=== PATIENT | female | born 1950 | race Caucasian/White ===

== ENCOUNTER 2019-06-02 14:24 | Outpatient (CLI) | payer MEDICARE, OTHER, SELFPAY ==
--- NOTE | 2019-06-02 14:35 | XR_ITS ---
WS: [id number] LEFT SHOULDER: 3 VIEW(S) TECHNIQUE: Internal and external rotation with Y view. HISTORY: Fracture. COMPARISON: None available. Acute fracture involving the humeral head. There is slight impaction along the fracture line through the humeral head but no displacement otherwise. Moderate narrowing of the LEFT AC joint with small osteophytes. LEFT subclavian pacer and defibrillator. Atherosclerosis noted within the thoracic aorta. XR/XR shoulder LT min 2V* [id number] IMPRESSION: Slightly impacted but nondisplaced LEFT humeral head fracture. No prior studies to comment on nonhealing or callus formation or change in alignment.
== END 2019-06-02 14:25 | disposition home or self-care (01) ==
LOC: RADWPI 14:34
PROVIDERS: PCP Nurse Practitioner Family; Referring Provider Nurse Practitioner Family; Visit Provider Nurse Practitioner Family
DX: S42.292A Other displaced fracture of upper end of left humerus, initial encounter for closed fracture (principal); X58.XXXA Exposure to other specified factors, initial encounter
CPT/HCPCS: 73030

== ENCOUNTER 2019-06-18 07:58 | Day surgery (SDC) | payer MEDICARE, OTHER, SELFPAY ==
[2019-06-17 12:23] VITALS: BMI 36.3
--- NOTE | 2019-06-18 08:14 | ANES.PREANES ---
Pre-Anesthetic Assessment Pre-Anesthetic Assessment: Height/Weight: Height 1.6 m Weight 92.986 kg Proposed Procedure: Operation Date: 06/18/19 09:30 Proposed Procedures p Colonoscopy(Not Applicable) - Mathew Garland MD Social: Social History: Tobacco (quit 97) Exam: Pre-Anes Outpt Exam: alert, oriented x 3, clear to auscultation bilaterally and regular rate & rhythm Airway: Submandibular: WNL Cervical ROM: WNL MP: 2 Dentition: Other (teeth poor) History/ROS: No significant history except as noted Pulmonary: Pulmonary: RAMIREZ, Orthopnea and Sleep apnea CV/HEM: CV/HEM: CAD, CHF, HTN and UT : : Chronic renal Insufficiency Hepatic: Hepatic: None reported GI: GI: GERD (occ) Metabolic: Metabolic: DM and Hyperlipidemia Musc/skel: Musc/skel: Lower Back Pain Neuropsych: Neuropsych: Anxiety and Depression Anesthetic Plan: ASA status: III Anesthesia: Anesthesia Evaluation and MAC Risk of > 500 ml blood loss (7ml/kg in children): No PFSH Anesthesia PFSH: Medical History Depression (Acute) Diabetes mellitus (Acute) Heart disease (Acute) Hx of cardiac pacemaker (Acute) Hypertension (Acute) Migraine (Acute) Myocardial infarction (Acute) Sleep apnea (Acute) Thyroid disease (Acute) Surgical History Hx of cholecystectomy (Acute) Hx of hysterectomy (Acute) Family History Other Diabetes Heart disease Data Anesthesia Cardiac Studies: No Data to Display
--- NOTE | 2019-06-18 09:01 | PM.HPUD ---
H&P update H&P Update: DATE OF SURGERY/PROCEDURE: 06/18/19 DATE H&P PERFORMED: 06/09/19 H&P UPDATE INFORMATION: H&P completed within last 30 days and Changes to prior documentation as noted here CHANGES TO PREVIOUS DOCUMENTATION: Patient said she forgot to tell me that she has a fracture of her left humerus; she sees somebody for follow-up next week. She tries not to lay on that side so I told her that we will maybe try to do the colonoscopy in a supine position today. PLANNED PROCEDURE: Operation Date: 06/18/19 09:30 Proposed Procedures p Colonoscopy(Not Applicable) - Mathew Garland MD Full H&P Perinent History: Medical/Surgical History: Medical History (Updated 06/18/19 @ 08:15 by Rei Guerin MD) Depression (Acute) Diabetes mellitus (Acute) Heart disease (Acute) Hx of cardiac pacemaker (Acute) Hypertension (Acute) Migraine (Acute) Myocardial infarction (Acute) Sleep apnea (Acute) Thyroid disease (Acute) Family History: Family History (Updated 06/17/19 @ 11:54 by Ethan Chase LPN) Other Diabetes Heart disease
[2019-06-18 09:33] VITALS: BP 152/82; PULSE 71; RESP 20; TEMP 36.3; O2SAT 99
[2019-06-18] MEDS: sodium chloride 0.9% 1,000 ML 30 ML (09:36)
[2019-06-18 09:43] LABS: Glucose Point of Care 74 mg/dL (70-110)
[2019-06-18 10:07] VITALS: BP 123/76; PULSE 70; RESP 16; TEMP 36.3; O2SAT 99
--- NOTE | 2019-06-18 10:09 | ANE.PACU ---
 Inpatient post-anesthesia follow up: Airway intact: Yes Vital signs: Temperature 97.4 F Pulse Rate 71 Respiratory Rate 20 Blood Pressure 152/82 Pulse Oximetry 99 Oxygen Delivery Me thod Room Air Oxygen Flow Rate Fraction of Inspir ed Oxygen Hydration adequate: Yes Nausea and vomiting: No Pain level: Other Mental status: Baseline
[2019-06-18 10:20] VITALS: BP 148/66; PULSE 70; RESP 18; O2SAT 97
== END 2019-06-18 10:42 | disposition home or self-care (01) ==
PROVIDERS: PCP Nurse Practitioner Family; Visit Provider Surgery
PROC: 0DJD8ZZ Inspection of Lower Intestinal Tract, Via Natural or Artificial Opening Endoscopic (ICD-10-PCS; CPT 45378; principal; 2019-06-18 09:30)
DX: R19.5 Other fecal abnormalities (principal); D12.5 Benign neoplasm of sigmoid colon; K57.30 Diverticulosis of large intestine without perforation or abscess without bleeding; E11.9 Type 2 diabetes mellitus without complications; I11.0 Hypertensive heart disease with heart failure; I50.9 Heart failure, unspecified; G47.30 Sleep apnea, unspecified; Z82.49 Family history of ischemic heart disease and other diseases of the circulatory system; Z83.3 Family history of diabetes mellitus; I25.2 Old myocardial infarction; Z95.0 Presence of cardiac pacemaker; Z87.891 Personal history of nicotine dependence; I25.10 Atherosclerotic heart disease of native coronary artery without angina pectoris; E78.5 Hyperlipidemia, unspecified; M19.90 Unspecified osteoarthritis, unspecified site; Z79.891 Long term (current) use of opiate analgesic; Z79.82 Long term (current) use of aspirin; Z79.4 Long term (current) use of insulin
CPT/HCPCS: 12345; 36416; 45385; 82962; 88305; J2704; J7030

== ENCOUNTER → 2019-06-25 10:22 | Outpatient (BNVA) | payer MEDICARE, OTHER, SELFPAY | PROVIDERS: PCP Nurse Practitioner Family; Referring Provider Nurse Practitioner Family; Visit Provider Specialist | DX: M25.512 Pain in left shoulder (principal); S42.292A Other displaced fracture of upper end of left humerus, initial encounter for closed fracture; X58.XXXA Exposure to other specified factors, initial encounter | CPT/HCPCS: 73030 ==

== ENCOUNTER 2019-06-30 15:19 | Outpatient (RCR) | payer MEDICARE, OTHER, SELFPAY | END 2019-07-18 23:59 | disposition home or self-care (01) | LOC: SPT 15:19 | PROVIDERS: PCP Nurse Practitioner Family; Referring Provider Specialist; Visit Provider Specialist | DX: S42.202D Unspecified fracture of upper end of left humerus, subsequent encounter for fracture with routine healing (principal); X58.XXXD Exposure to other specified factors, subsequent encounter | CPT/HCPCS: 97110; 97161 ==

== ENCOUNTER 2019-07-19 06:00 | Outpatient (RCR) | payer MEDICARE, OTHER, SELFPAY | END 2019-08-18 23:59 | disposition home or self-care (01) | LOC: SPT 06:00 | PROVIDERS: PCP Nurse Practitioner Family; Referring Provider Specialist; Visit Provider Specialist | DX: S42.202D Unspecified fracture of upper end of left humerus, subsequent encounter for fracture with routine healing (principal); X58.XXXD Exposure to other specified factors, subsequent encounter | CPT/HCPCS: 97110 ==

== ENCOUNTER → 2019-07-23 11:20 | Outpatient (BNVA) | payer MEDICARE, OTHER, SELFPAY | PROVIDERS: PCP Nurse Practitioner Family; Visit Provider Specialist | DX: S42.292A Other displaced fracture of upper end of left humerus, initial encounter for closed fracture; X58.XXXA Exposure to other specified factors, initial encounter | CPT/HCPCS: 73030 ==

== ENCOUNTER 2019-09-28 10:34 | Outpatient (CLI) | payer MEDICARE, OTHER, SELFPAY ==
--- NOTE | 2019-09-28 10:49 | XR_ITS ---
WS: [id number] LUMBAR SPINE FLEXION AND EXTENSION TECHNIQUE: 3 views of the lumbar spine: Lateral neutral, flexion, and extension views. CLINICAL INFORMATION: LOW BACK PAIN COMPARISON: None. FINDINGS: Slight grade 1 anterolisthesis L4 on L5 measuring 1.8 mm in neutral. This increases slightly on flexi on to 2.8 mm. This decreases to near neutral on extension. Disc space narrowing worse L5-S1. Moderate facet arthropathy L5-S1 with bony foraminal narrowing. Mild chronic anterior wedging in the lower th oracic spine. XR/XR lumbar spine f/e only [id number] IMPRESSION: Mild flexion instability L4-5 described above.
== END 2019-09-28 10:35 | disposition home or self-care (01) ==
PROVIDERS: PCP Nurse Practitioner Family; Visit Provider Nurse Practitioner
DX: M54.5 Low back pain (principal); M53.2X6 Spinal instabilities, lumbar region
CPT/HCPCS: 72120

== ENCOUNTER → 2020-03-29 11:22 | Outpatient (BNVA) | payer MEDICARE, OTHER, SELFPAY | PROVIDERS: PCP Nurse Practitioner Family; Visit Provider Nurse Practitioner Family | DX: E11.9 Type 2 diabetes mellitus without complications (principal); E03.9 Hypothyroidism, unspecified; I10 Essential (primary) hypertension; Z79.01 Long term (current) use of anticoagulants | CPT/HCPCS: 80053; 83036; 84443; 85025 ==

== ENCOUNTER 2020-03-30 09:30 | Outpatient (CLI) | payer MEDICARE, OTHER, SELFPAY ==
--- NOTE | 2020-03-30 09:47 | USCV_ITS ---
Wendy Dockery Age: 69 Gender: F : 1950 Exam Date: 03/30/2020 09:58 Ordering Phys: Acacia Welch LENS MATCHER Technologist: Chrissie Santos [place] [facility] [place]: AAA Screening HISTORY: Diameter (cm) AP x Transverse x Length Velocity (cm/s) Waveform Prox Aorta: 1.88 x 2.12 x 74.60 Triphasic Mid Aorta: 1.69 x 1.69 x 86.10 Triphasic Distal Aorta: 1.66 x 1.78 x 76.90 Triphasic Right Iliac Prox: 1.18 x 1.21 x 88.40 Triphasic Left Iliac Prox: 1.29 x 1.31 x 112.40 Triphasic Stent Prox Landing x x Aneurysmal Sac Max x x Lt Lat Sac Dim Rt Lat Sac Dim Stent Dist Landing x x Right Iliac Stent x x Left Iliac Stent x x Right Renal Art Left Renal Art FINDINGS: Mild diffuse plaques in the abdominal aorta Normal aortic and iliac Doppler flow velocities CONCLUSIONS 1. Normal dimensions of the abdominal aorta and proximal common iliac arteries with no evidence of aneurysm 2. Normal Doppler flow velocities with no evidence of hemodynamically significant stenosis 3. Mild diffuse plaques in the abdominal aorta Dr Ace Santizo MD [facility] (Electronically Signed) Final Date: 31 March 2020 19:17 S
--- NOTE | 2020-03-30 09:47 | USCV_ITS ---
Wenyd Dockery Age: 69 Gender: F : 1950 Exam Date: 03/30/2020 10:21 Ordering Phys: Acacia Welch SR. PAYROLL PROCESSOR Technologist: Adriana Elizabeth Exam Location: [facility] – [place] Indication: chf BP: 114 / 65 HR: 125 Rhythm: Sinus Technical Quality: Adequate MEASUREMENTS (Male / Female) Normal Values 2D ECHO LV Diastolic Diameter PLAX 4.1 cm 4.2 - 5.9 / 3.9 - 5.3 cm LV Systolic Diameter PLAX 3.7 cm LV Chamber Size 3.6 cm IVS Diastolic Thickness 1.6 cm 0.6 - 1.0 / 0.6 - 0.9 cm IVS Systolic Thickness 1.5 cm LVPW Diastolic Thickness 2.1 cm 0.6 - 1.0 / 0.6 - 0.9 cm LVPW Systolic Thickness 2.5 cm RV Chamber Size 2.9 cm LVOT Diameter 2.0 cm LV Ejection Fraction 2D Teich 22.6 % LV Ejection Fraction MOD 2C 66.2 % LV Ejection Fraction 2C AL 68.3 % LA Diameter 4.0 cm LA Width 2.9 cm LA Height 5.2 cm RA Width 2.4 cm RA Height 3.9 cm Aorta at Sinotubular Diameter 3.6 cm M-MODE LV Diastolic Diameter MM 5.3 cm 4.2 - 5.9 / 3.9 - 5.3 cm LV Systolic Diameter MM 3.7 cm LV Ejection Fraction MM Teich 57.1 % IVS Diastolic Thickness MM 1.2 cm 0.6 - 1.0 / 0.6 - 0.9 cm IVS Systolic Thickness MM 1.8 cm LVPW Diastolic Thickness MM 1.2 cm 0.6 - 1.0 / 0.6 - 0.9 cm LVPW Systolic Thickness MM 1.2 cm Aortic Annulus Diameter 3.6 cm LA Ao Ratio MM 1.3 MV E Point Septal Separation 1.1 cm DOPPLER AV Peak Velocity 104.0 cm/s LVOT Peak Velocity 104.0 cm/s AV Area Cont Eq vti 3.9 cm squared AV Area Cont Eq pk 3.3 cm squared MV Area PHT 6.3 cm squared Mitral E to A Ratio 3.4 MV E' Velocity 52.5 cm/s Mitral E to MV E' Ratio 8.0 Mitral E to LV E' Lateral Ratio 10.3 Mitral E to LV E' Septal Ratio 6.5 TR Peak Velocity 235.7 cm/s TR Peak Gradient 22.2 mmHg TV Peak E Velocity 45.0 cm/s Right Atrial Pressure 3.0 mmHg Pulmonary Artery Systolic Pressu 25.2 mmHg PV Peak Velocity 76.0 cm/s RV Acceleration Time 0.1 s RV Ejection Time 0.3 s RV AcT/ET 0.2 FINDINGS Left Ventricle Normal left ventricular cavity size. Mildly decreased left ventricular systolic function. Global left ventricular hypokinesis with septal bounce which could be secondary to pacemaker activity, interventricular conduction delay or postoperative state. Left ventricular ejection fraction is estimated at 50 %. Grade III/IV diastolic dysfunction (restrictive filling pattern), severely elevated filling pressures. Right Ventricle The right ventricle is normal in size and function. Catheter/pacemaker wire visualized in the right ventricle. Right Atrium The right atrium is normal in size. Left Atrium The left atrium is normal in size. Mitral Valve Structurally normal mitral valve without significant stenosis or prolapse. There is no mitral regurgitation. Aortic Valve Moderate aortic valve calcification. No aortic valve stenosis. Mild aortic valve regurgitation. Tricuspid Valve Structurally normal tricuspid valve without significant stenosis or regurgitation. Pulmonary artery systolic pressure is normal. Pulmonic Valve Structurally normal pulmonic valve without significant stenosis. There is no pulmonic regurgitation. Pericardium Normal pericardium without effusion. Aorta Normal ascending aorta dimension. CONCLUSIONS 1-Normal left ventricular cavity size. Mildly decreased left ventricular systolic function. Global left ventricular hypokinesis with septal bounce which could be secondary to pacemaker activity, interventricular conduction delay or postoperative state. Left ventricular ejection fraction is estimated at 50 %. Grade III/IV diastolic dysfunction (restrictive filling pattern), severely elevated filling pressures. 2-Moderate aortic valve calcification. No aortic valve stenosis. Mild aortic valve regurgitation. 3-The right ventricle is normal in size and function. Catheter/pacemaker wire visualized in the right ventricle. 4-There is no pericardial effusion. 5-Right atrial pressure is around 5 mm of mercury. 6-There are no prior echocardiogram studies to compare. Mirta Barraza MD (Electronically Signed) Final Date: 30 March 2020 19:42 S
--- NOTE | 2020-03-30 11:57 | MM_ITS ---
WS: [id number] BILATERAL DIGITAL SCREENING MAMMOGRAPHY WITH CAD CLINICAL INFORMATION: SCREENING HISTORY: Screening mammogram. No current complaints. COMPARISON: 019 and TECHNIQUE: Bilateral CC and MLO views. FINDINGS: The breasts are composed of heterogeneous fibroglandular density tissue, which can limit the detectio n of small underlying mass lesions. Dystrophic calcifications right breast. Punctate and lucent cente red calcifications are similar in appearance. Stable intramammary lymph nodes. Dense breast tissue up per outer left breast is unchanged dating back to 2016. No suspicious mass, asymmetry, calcifications, or architectural distortion. No evidence of malignancy . MM/[place] [id number] IMPRESSION: BI-RADS: 2-Benign FOLLOW UP: 1 Year Follow-up Recommend return to annual screening mammography.
== END 2020-03-30 09:31 | disposition home or self-care (01) ==
PROVIDERS: PCP Nurse Practitioner Family; Visit Provider Nurse Practitioner Family
DX: Z12.31 Encounter for screening mammogram for malignant neoplasm of breast (principal); I50.9 Heart failure, unspecified; I35.1 Nonrheumatic aortic (valve) insufficiency; Z95.0 Presence of cardiac pacemaker; I71.4 Abdominal aortic aneurysm, without rupture
CPT/HCPCS: 76706; 77067; 93306

== ENCOUNTER 2020-12-26 13:29 | Outpatient (CLI) | payer MEDICARE, SELFPAY ==
[2020-12-26 14:53] LABS: Calcium 8.8 mg/dL (8.5-10.5)
[2020-12-26 15:00] LABS: Parathyroid Hormone 89.5 pg/mL (15-65)
[2020-12-26 15:03] LABS: Creatinine Urine, Random 488 mg/dL (28-217); Microalbum Creatinine Ratio Ur 4 mg/dL (0-20); Microalbumin Random Urine 2 ug/dL (0-20)
[2020-12-26 15:07] LABS: 25 Hydroxy Vitamin D 29 ng/mL (30-100); Anion Gap 16.4 (5-19); Blood Urea Nitrogen 18 mg/dL (8-23); Calcium 8.9 mg/dL (8.5-10.5); Carbon Dioxide 24 mmol/L (22-29); Chloride 101 mmol/L (98-107); Glucose 247 mg/dL (65-115); Phosphorus 2.9 mg/dL (2.5-4.5); Potassium 4.4 mmol/L (3.5-5.1); Sodium 137 mmol/L (136-145)
== END 2020-12-26 13:30 | disposition home or self-care (01) ==
LOC: LAB 13:36
PROVIDERS: PCP Nurse Practitioner Family; Visit Provider Internal Medicine Nephrology
DX: N18.32 Chronic kidney disease, stage 3b (principal)
CPT/HCPCS: 80069; 82044; 82306; 82310; 83970

== ENCOUNTER 2021-06-06 12:26 | Outpatient (CLI) | payer MEDICARE, SELFPAY ==
--- NOTE | 2021-06-06 12:37 | XR_ITS ---
WS: [id number] Exam: XR chest 3V [id number] Date/Time of Exam: 06/06/2021 12:42 PM Reason For Exam: PNEUMONIA There is infiltrate and probable atelectasis in the left lower lobe. The right lung is clear. No pneu mothorax is seen. There may be a small left pleural effusion present. Mild cardiac enlargement. A per manent cardiac pacer is noted over the left chest. Bony structures are intact. XR/XR chest 3V [id number] IMPRESSION: 1. Left lower lobe infiltrate and probable atelectasis. Small left pleural effu temitope. 2. Mild cardiac enlargement.
== END 2021-06-06 12:27 | disposition home or self-care (01) ==
LOC: RAD 12:30
PROVIDERS: PCP Nurse Practitioner Family; Visit Provider Nurse Practitioner Family
DX: J18.9 Pneumonia, unspecified organism (principal); I51.7 Cardiomegaly; R91.8 Other nonspecific abnormal finding of lung field
CPT/HCPCS: 71047

== ENCOUNTER 2021-06-13 19:27 | Emergency (ER) | payer MEDICARE, SELFPAY ==
[2021-06-13 19:37] VITALS: BP 171/78; PULSE 73; RESP 18; TEMP 36.5; O2SAT 92; BMI 36.6
--- NOTE | 2021-06-13 19:45 | ED_ITS ---
Documented by User: Rei Lugo MD 06/17/21 20:31 HPI - SOB/Dyspnea General: Chief Complaint: Shortness of Breath/Dyspnea Stated Complaint: SOB\Headache\Confused Time Seen by Provider: 06/13/21 19:45 History of Present Illness: HPI Narrative: Ms. Dockery is a 71-year-old lady with significant past medical history of hypertension, hyperlipidemia, thyroid disorder, diabetes who presents emergency department due to shortness of breath cough. Symptoms have been going on for almost a month now initially after a head cold and then has had persistent cough. She endorses over the past week worsening symptoms including new oxygen requirement. She does not have a history of extensive smoking and no known lung disease. Today she has had nausea vomiting and generally feels worse in addition to headache. She has not been vaccinated against Covid though denies sick exposures. Over the course of symptoms has been worsening. Intensity today is moderate to severe. No other specific changes to health, exacerbating, relieving factors identified. Pertinent past history: diabetes Onset (ago): week(s) Context: other Timing: progressively worsening Severity: moderate Exacerbating factors: movement and coughing Relieving factors: nothing Known history of: other Associated symptoms: Reports nausea, vomiting and other Treatment prior to arrival: oxygen Review of Systems General: Reports: 10 or more systems reviewed and unremarkable except in HPI and below GI: Reports: nausea and vomiting [facility] ED PFSH: Medical History Depression Diabetes mellitus Heart disease Hx of cardiac pacemaker Hypertension Hypothyroidism Migraine Myocardial infarction On anticoagulant therapy Renal insufficiency Sleep apnea Thyroid disease Surgical History Hx of cholecystectomy Hx of hysterectomy Family History Other Diabetes Heart disease Social History Smoking and tobacco status: never smoked Physical Exam Const: COMMON NORMALS: alert GENERAL APPEARANCE: cooperative, well developed and ill appearing (mildly) HENMT: COMMON NORMALS: normocephalic and atraumatic HEAD & SCALP: normocephalic and atraumatic Eye: COMMON NORMALS: conjunctivae normal CONJUNCTIVA: Yes conjunctivae normal SCLERA: sclerae normal Neck/C-Spine: COMMON NORMALS: supple GENERAL: Yes trachea midline Resp: COMMON NORMALS: normal respiratory effort EFFORT & INSPECTION: Yes able to speak in complete sentences AUSCULTATION: rhonchi lower bilaterally and diminished lung sounds Cardio: COMMON NORMALS: regular rate and regular rhythm RATE: regular rate RHYTHM: regular rhythm OTHER: Normal peripheral perfusion, no edema GI: COMMON NORMALS: Soft to palpation PALPATION: Yes Soft to palpation and No Tenderness to palpation present (GI) PERCUSSION: normal to percussion Extremity: GENERAL: Yes normal exam except as noted and No edema Neuro: COMMON NORMALS: moves all extremities SENSORIUM/ORIENTATION: Yes alert and No Orientation impaired Psych: COMMON NORMALS: mental status grossly normal and Normal thought process present THOUGHT PROCESS: Normal thought process present Course ED course: - Patient was seen and evaluated by me at bedside - Patient placed on cardiac monitors, IV access obtained - Initial evaluation notable for exam as above -Fluids given - Labs notable for no significant hematologic abnormality with exception of mild thrombocytopenia of unclear etiology. ABG without evidence of CO2 retention. Metabolic panel with significant hypokalemia of somewhat unclear etiology, mildly elevated anion gap. Delta troponin is negative. BNP mildly elevated. Covid positive. - Imaging notable for questionable left basilar infiltrate or atelectasis. - Upon serial reexamination after treatment the patient was mildly improved - Given fairly profound hypokalemia both oral and IV replenishment were ordered. Upon clarification patient history she reports only intermittent compliance with potassium supplementation despite taking her Lasix as directed. This is likely a significantly contributing factor to hyperkalemia. - Patient care handed off to overnight ED physician Dr. Christina pending repeat BMP for improvement in hyperkalemia with ED provider treatment. Note: Click bubbles or prepopulated james in note writing are used for assistance with data collection and billing and are inherently more limited than narrative and other text portions of this note. Please use narrative for additional clinical history and defer to narrative/free test for any case of contradictory information. If information appears in only free text or click bubble it should be considered present or absent as reported. Please contact note physician underwriter for clarifications of clinical information or contradictory information. Vital Signs: Vital signs: Vital Signs Temperature 97.7 F 06/13/21 19:37 Pulse Rate 80 06/14/21 02:52 Respiratory Rate 19 H 06/14/21 02:52 Blood Pressure 178/98 06/14/21 02:52 Pulse Oximetry 95 06/14/21 02:52 MDM - SOB/Dyspnea Medical Records Attestation: I reviewed the patient's medical records. Lab Data Attestation: I reviewed the patient's lab results. Result diagrams: 06/13/21 19:53 06/14/21 00:46 Labs: Radiology Impressions Chest X-Ray 06/13/21 20:05 IMPRESSION: Questionable left basilar infiltrates or atelectasis. Laboratory Results WBC 6.3 10^3/uL (4.0-10.0) 06/13/21 19:53 RBC 4.64 10^6/uL (4.1-5.3) 06/13/21 19:53 Hgb 13.2 g/dL (11.5-15.3) 06/13/21 19:53 Hct 40.9 % (37.0-47.0) 06/13/21 19:53 MCV 88.1 fl (81-99) 06/13/21 19:53 MCH 28.4 pg (28.0-34.0) 06/13/21 19:53 MCHC 32.3 g/dL (30.0-36.0) 06/13/21 19:53 RDW 13.9 % (12.1-15.1) 06/13/21 19:53 Plt Count 126 10^3/cmm (130-400) L 06/13/21 19:53 MPV 10.0 fL (7.4-10.4) 06/13/21 19:53 Neut % (Auto) 71.5 % 06/13/21 19:53 Lymph % (Auto) 20.1 % 06/13/21 19:53 Cook % (Auto) 7.0 % 06/13/21 19:53 Eos % (Auto) 0.5 % 06/13/21 19:53 Baso % (Auto) 0.3 % 06/13/21 19:53 Neut # (Auto) 4.52 10^3/uL (1.8-7.7) 06/13/21 19:53 Lymph # (Auto) 1.3 10^3/uL (0.8-4.8) 06/13/21 19:53 Cook # (Auto) 0.4 10^3/uL (0.2-0.9) 06/13/21 19:53 Eos # (Auto) 0.0 10^3/uL (0.0-0.8) 06/13/21 19:53 Baso # (Auto) 0.0 10^3/uL (0.0-0.1) 06/13/21 19:53 Nucleated RBC % (auto) 0 % 06/13/21 19:53 Nucleated RBCs # 0.0 /100WBC 06/13/21 19:53 Specimen Type Arterial 06/13/21 20:05 Sample Site Radial, right 06/13/21 20:05 ABG pH 7.57 (7.35-7.45) H* 06/13/21 20:05 ABG pCO2 38.8 mmHg (35-45) 06/13/21 20:05 ABG pO2 76.1 mmHg (80.0-100.0) L 06/13/21 20:05 ABG HCO3 35.6 mmol/L (22-26) H 06/13/21 20:05 ABG Base Excess 12.5 mmol/L (-2.0-2.0) H 06/13/21 20:05 Gordon Test Pos 06/13/21 20:05 Hematocrit 38.1 % (37-47) 06/13/21 20:05 O2 Delivery Device Nc 06/13/21 20:05 O2 Liters/Min 2.0 % 06/13/21 20:05 FiO2 28.0 % 06/13/21 20:05 General Utility Worker ID glc 06/13/21 20:05 Blood Gas Notified Time 193906/13/21 20:05 Sodium 144 mmol/L (136-145) 06/14/21 00:46 Potassium 2.8 mmol/L (3.5-5.1) L* 06/14/21 00:46 Chloride 101 mmol/L (98-107) 06/14/21 00:46 Carbon Dioxide 29 mmol/L (22-29) 06/14/21 00:46 Anion Gap 16.8 (5-19) 06/14/21 00:46 BUN 13 mg/dL (8-23) 06/14/21 00:46 Creatinine 0.9 mg/dL (0.5-0.9) 06/14/21 00:46 GFR Calculation Not Reportable 06/14/21 00:46 Glucose 110 mg/dL (65-115) 06/14/21 00:46 Calculated Osmolality 299 mOsm/kg (285-295) H 06/14/21 00:46 Calcium 8.5 mg/dL (8.5-10.5) 06/14/21 00:46 Magnesium 1.6 mg/dL (1.7-2.3) L 06/13/21 19:53 Total Bilirubin 1.0 mg/dL (0.15-1.2) 06/13/21 19:53 AST 17 U/L (0-32) 06/13/21 19:53 ALT 8 U/L (0-33) 06/13/21 19:53 Alkaline Phosphatase 111 IU/L (35-105) H 06/13/21 19:53 Troponin T Baseline 40 ng/L (0-10) H 06/13/21 19:53 Troponin T 120 Minute 39.54 ng/L (0-10) H 06/13/21 21:55 Delta Troponin T -0.46 ABS# (0-10) L 06/13/21 21:55 Troponin T Hi Sens 6Hr 38.61 ng/L (0-10) H 06/14/21 01:48 Troponin T Hi Sens 6Hr Delta -1.39 ng/L (0-12) L 06/14/21 01:48 NT-Pro-B Natriuret Pep 2497 pg/mL (0-125) H 06/13/21 19:53 Total Protein 6.2 g/dL (6.6-8.7) L 06/13/21 19:53 Albumin 3.3 g/dL (3.5-5.2) L 06/13/21 19:53 Globulin 2.9 g/dL (1.3-4.6) 06/13/21 19:53 Procalcitonin 0.06 ng/mL (0-0.5) 06/13/21 19:53 SARS-CoV-2 Ag (Rapid) Positive (Negative) H 06/13/21 21:30 EKG Data EKG 1: Attestation: I personally reviewed and interpreted this EKG as follows: EKG Interpretation Date: 06/13/21 EKG interpretation time: 21:39 Interpretation: Twelve-lead EKG shows a regular rhythm at a rate of 70. MT interval 272, QRS duration 178, QTc 47. Left axis deviation. Interpretation: AV paced rhythm with occasional breakthrough paimiut beats. Discharge Plan Discharge Patient Disposition: Home Clinical Impression: COVID-19, Elevated brain natriuretic peptide (BNP) level, Thrombocytopenia, Hypokalemia, Dehydration, Cough, Shortness of breath Condition: Stable Prescriptions: New potassium chloride 40 mEq/15 mL liquid 40 meq PO TID Qty: 473 0RF No Action (DME) pen needle, diabetic [BD Ultra-Fine Short Pen Needle] 31 gauge x 5/16 needle See Rx Instructions .Route Qty: 100 5RF Rx Instructions: As directed Levemir FlexTouch U-100 Insuln 100 unit/mL (3 mL) insulin pen See Rx Instructions .ROUTE .COMPLEX Qty: 15 0RF Dose Instruction: INJECT 55 UNITS SUBCUTANEOUSLY AT BEDTIME Rx Instructions: INJECT 55 UNITS SUBCUTANEOUSLY AT BEDTIME carvedilol 25 mg Tablet 25 mg PO BID 0RF atorvastatin 20 mg Tablet 20 mg PO DAILY 0RF famotidine 40 mg Tablet 40 mg PO DAILY 0RF sertraline 100 mg Tablet 100 mg PO DAILY 0RF levothyroxine 75 mcg Tablet 75 mcg PO DAILY 0RF aspirin 81 mg Tablet,Chewable 81 mg PO DAILY 0RF furosemide [Lasix] 20 mg Tablet 20 mg PO DAILY 0RF bupropion HCl 150 mg Tablet Extended Release 24 Hr 150 mg PO BEDTIME 0RF cholecalciferol (vitamin D3) [Vitamin D3] 400 unit Tablet,Chewable 5,000 unit PO DIRECTED 0RF Rx Instructions: WEEKLY cyclobenzaprine 10 mg Tablet 10 mg PO TID PRN (Reason: Spasms) 0RF potassium chloride 8 mEq Tablet Extended Release 16 meq PO BID 0RF hydrocodone-acetaminophen 7.5-325 mg Tablet 1 tab PO Q6H PRN (Reason: Pain) 0RF Entresto 49-51 mg Tablet 1 tab PO BID 0RF Zofran 4 mg tablet 4 mg PO Q6H PRN (Reason: nausea and vomiting) Qty: 20 0RF Discharge Orders: Discharge ED (Routine); Ordered 06/14/21 Ordered By: Lucía Christina Referrals: Welch,Acacia, [facility] [Primary Care Provider] - Discharge Diet: As Directed Discharge Activity: Increase activity as tolerated Patient Instructions: Hypokalemia (ED), Leg Edema (ED), COVID-19 (Coronavirus Disease 2019) (ED) Activity Restrictions/Additional Instructions: Thank you for visiting the emergency department. You were seen and evaluated for shortness of breath and generalized symptoms. Most of the symptoms I believe are related to COVID-19. You do have some evidence of volume overload/heart failure exacerbation. I recommend continuing your Lasix and contacting your primary care provider regarding adjustment. In addition, your potassium was significantly low which can cause arrhythmias and other cardiac problems. It is essential that you take your potassium supplementation with your Lasix. I recommend repeat labs within 1 week for reevaluation. Please follow-up with your primary care provider. Return to the emergency department for worsening symptoms, chest pain, shortness of breath, or anything else that you are concerned about and feel needs emergency department evaluation. You should visit the CDC's website for the most up-to-date information regarding quarantine and other Covid questions. This is the link specifically for quarantine. https://www.cdc.gov/coronavirus/2019-ncov/your-health/quarantine-isolation.html Coding Level of Care Code ED Aeronautical Project Engineer for Chg Fwd Documented by User: Lucía Christina MD 06/14/21 01:59 HPI - SOB/Dyspnea General: Chief Complaint: Shortness of Breath/Dyspnea Stated Complaint: SOB\Headache\Confused Time Seen by Provider: 06/13/21 19:45 PFSH ED PFSH: Medical History Depression Diabetes mellitus Heart disease Hx of cardiac pacemaker Hypertension Hypothyroidism Migraine Myocardial infarction On anticoagulant therapy Renal insufficiency Sleep apnea Thyroid disease Surgical History Hx of cholecystectomy Hx of hysterectomy Family History Other Diabetes Heart disease Social History Smoking and tobacco status: never smoked Course Vital Signs: Vital signs: Vital Signs Temperature 97.7 F 06/13/21 19:37 Pulse Rate 80 06/14/21 02:52 Respiratory Rate 19 H 06/14/21 02:52 Blood Pressure 178/98 06/14/21 02:52 Pulse Oximetry 95 06/14/21 02:52 MDM - SOB/Dyspnea MDM Narrative Medical decision making narrative: I took patient over from Dr. Cuadra for repeat potassium level repeat testing level is improved at 2.8 she is not been taking her potassium supplement at home we will write her 40 mEq twice daily for the next 3 days and then she is to take her prescribed potassium as prescribed daily she is follow-up with PCP next week to have potassium level rechecked she is to return if worsening with her Covid or any other symptoms she is stable for discharge here. Lab Data Result diagrams: 06/13/21 19:53 06/14/21 00:46 Labs: Radiology Impressions Chest X-Ray 06/13/21 20:05 IMPRESSION: Questionable left basilar infiltrates or atelectasis. Laboratory Results WBC 6.3 10^3/uL (4.0-10.0) 06/13/21 19:53 RBC 4.64 10^6/uL (4.1-5.3) 06/13/21 19:53 Hgb 13.2 g/dL (11.5-15.3) 06/13/21 19:53 Hct 40.9 % (37.0-47.0) 06/13/21 19:53 MCV 88.1 fl (81-99) 06/13/21 19:53 MCH 28.4 pg (28.0-34.0) 06/13/21 19:53 MCHC 32.3 g/dL (30.0-36.0) 06/13/21 19:53 RDW 13.9 % (12.1-15.1) 06/13/21 19:53 Plt Count 126 10^3/cmm (130-400) L 06/13/21 19:53 MPV 10.0 fL (7.4-10.4) 06/13/21 19:53 Neut % (Auto) 71.5 % 06/13/21 19:53 Lymph % (Auto) 20.1 % 06/13/21 19:53 Cook % (Auto) 7.0 % 06/13/21 19:53 Eos % (Auto) 0.5 % 06/13/21 19:53 Baso % (Auto) 0.3 % 06/13/21 19:53 Neut # (Auto) 4.52 10^3/uL (1.8-7.7) 06/13/21 19:53 Lymph # (Auto) 1.3 10^3/uL (0.8-4.8) 06/13/21 19:53 Cook # (Auto) 0.4 10^3/uL (0.2-0.9) 06/13/21 19: Eos # (Auto) 0.0 10^3/uL (0.0-0.8) 06/13/21: Baso # (Auto) 0.0 10^3/uL (0.0-0.1) 06/13/21: Nucleated RBC % (auto) 0 % 06/13/21: Nucleated RBCs # 0.0 /100WBC 06/13/21 19:53 Specimen Type Arterial 06/13/21 20:05 Sample Site Radial, right 06/13/21 20:05 ABG pH 7.57 (7.35-7.45) H* 06/13/21 20:05 ABG pCO2 38.8 mmHg (35-45) 06/13/21 20:05 ABG pO2 76.1 mmHg (80.0-100.0) L 06/13/21 20:05 ABG HCO3 35.6 mmol/L (22-26) H 06/13/21 20:05 ABG Base Excess 12.5 mmol/L (-2.0-2.0) H 06/13/21 20:05 Gordon Test Pos 06/13/21 20:05 Hematocrit 38.1 % (37-47) 06/13/21 20:05 O2 Delivery Device Nc 06/13/21 20:05 O2 Liters/Min 2.0 % 06/13/21 20:05 FiO2 28.0 % 06/13/21 20:05 General Utility Worker ID glc 06/13/21 20:05 Blood Gas Notified Time 193906/13/21 20:05 Sodium 144 mmol/L (136-145) 06/14/21 00:46 Potassium 2.8 mmol/L (3.5-5.1) L* 06/14/21 00:46 Chloride 101 mmol/L (98-107) 06/14/21 00:46 Carbon Dioxide 29 mmol/L (22-29) 06/14/21 00:46 Anion Gap 16.8 (5-19) 06/14/21 00:46 BUN 13 mg/dL (8-23) 06/14/21 00:46 Creatinine 0.9 mg/dL (0.5-0.9) 06/14/21 00:46 GFR Calculation Not Reportable 06/14/21 00:46 Glucose 110 mg/dL (65-115) 06/14/21 00:46 Calculated Osmolality 299 mOsm/kg (285-295) H 06/14/21 00:46 Calcium 8.5 mg/dL (8.5-10.5) 06/14/21 00:46 Magnesium 1.6 mg/dL (1.7-2.3) L 06/13/21 19:53 Total Bilirubin 1.0 mg/dL (0.15-1.2) 06/13/21 19:53 AST 17 U/L (0-32) 06/13/21 19:53 ALT 8 U/L (0-33) 06/13/21 19:53 Alkaline Phosphatase 111 IU/L (35-105) H 06/13/21 19:53 Troponin T Baseline 40 ng/L (0-10) H 06/13/21 19:53 Troponin T 120 Minute 39.54 ng/L (0-10) H 06/13/21 21:55 Delta Troponin T -0.46 ABS# (0-10) L 06/13/21 21:55 Troponin T Hi Sens 6Hr 38.61 ng/L (0-10) H 06/14/21 01:48 Troponin T Hi Sens 6Hr Delta -1.39 ng/L (0-12) L 06/14/21 01:48 NT-Pro-B Natriuret Pep 2497 pg/mL (0-125) H 06/13/21 19:53 Total Protein 6.2 g/dL (6.6-8.7) L 06/13/21 19:53 Albumin 3.3 g/dL (3.5-5.2) L 06/13/21 19:53 Globulin 2.9 g/dL (1.3-4.6) 06/13/21 19:53 Procalcitonin 0.06 ng/mL (0-0.5) 06/13/21 19:53 SARS-CoV-2 Ag (Rapid) Positive (Negative) H 06/13/21 21:30 Discharge Plan Discharge Patient Disposition: Home Clinical Impression: COVID-19, Elevated brain natriuretic peptide (BNP) level, Thrombocytopenia, Hypokalemia, Dehydration, Cough, Shortness of breath Condition: Stable Prescriptions: New potassium chloride 40 mEq/15 mL liquid 40 meq PO TID Qty: 473 0RF No Action (DME) pen needle, diabetic [BD Ultra-Fine Short Pen Needle] 31 gauge x 5/16 needle See Rx Instructions .Route Qty: 100 5RF Rx Instructions: As directed Levemir FlexTouch U-100 Insuln 100 unit/mL (3 mL) insulin pen See Rx Instructions .ROUTE .COMPLEX Qty: 15 0RF Dose Instruction: INJECT 55 UNITS SUBCUTANEOUSLY AT BEDTIME Rx Instructions: INJECT 55 UNITS SUBCUTANEOUSLY AT BEDTIME carvedilol 25 mg Tablet 25 mg PO BID 0RF atorvastatin 20 mg Tablet 20 mg PO DAILY 0RF famotidine 40 mg Tablet 40 mg PO DAILY 0RF sertraline 100 mg Tablet 100 mg PO DAILY 0RF levothyroxine 75 mcg Tablet 75 mcg PO DAILY 0RF aspirin 81 mg Tablet,Chewable 81 mg PO DAILY 0RF furosemide [Lasix] 20 mg Tablet 20 mg PO DAILY 0RF bupropion HCl 150 mg Tablet Extended Release 24 Hr 150 mg PO BEDTIME 0RF cholecalciferol (vitamin D3) [Vitamin D3] 400 unit Tablet,Chewable 5,000 unit PO DIRECTED 0RF Rx Instructions: WEEKLY cyclobenzaprine 10 mg Tablet 10 mg PO TID PRN (Reason: Spasms) 0RF potassium chloride 8 mEq Tablet Extended Release 16 meq PO BID 0RF hydrocodone-acetaminophen 7.5-325 mg Tablet 1 tab PO Q6H PRN (Reason: Pain) 0RF Entresto 49-51 mg Tablet 1 tab PO BID 0RF Zofran 4 mg tablet 4 mg PO Q6H PRN (Reason: nausea and vomiting) Qty: 20 0RF Discharge Orders: Discharge ED (Routine); Ordered 06/14/21 Ordered By: Lucía Christina Referrals: Acacia Welch FNP [Primary Care Provider] - Discharge Diet: As Directed Discharge Activity: Increase activity as tolerated Patient Instructions: Hypokalemia (ED), Leg Edema (ED), COVID-19 (Coronavirus Disease 2019) (ED) Activity Restrictions/Additional Instructions: Thank you for visiting the emergency department. You were seen and evaluated for shortness of breath and generalized symptoms. Most of the symptoms I believe are related to COVID-19. You do have some evidence of volume overload/heart failure exacerbation. I recommend continuing your Lasix and contacting your primary care provider regarding adjustment. In addition, your potassium was significantly low which can cause arrhythmias and other cardiac problems. It is essential that you take your potassium supplementation with your Lasix. I recommend repeat labs within 1 week for reevaluation. Please follow-up with your primary care provider. Return to the emergency department for worsening symptoms, chest pain, shortness of breath, or anything else that you are concerned about and feel needs emergency department evaluation. You should visit the CDC's website for the most up-to-date information regarding quarantine and other Covid questions. This is the link specifically for quarantine. https://www.cdc.gov/coronavirus/2019-ncov/your-health/quarantine-isolation.html Coding Level of Care Code ED Aeronautical Project Engineer for Oscar Yoon
--- NOTE | 2021-06-13 20:05 | XRR_ITS ---
PROCEDURE INFORMATION: Exam: XR Chest Exam date and time: 06/13/2021 8:05 PM Age: 71 years old Clinical indication: Cough; Prior surgery; Surgery date: 6+ months; Surgery type: Pacer, defibulator TECHNIQUE: Imaging protocol: XR of the chest. Views: 1 view. COMPARISON: CR XR chest 3V [id number] 06/06/2021 12:43 PM FINDINGS: Tubes, catheters and devices: A left chest multi lead defibrillator is unchanged. Lungs: There are persisting indistinct hazy opacities in the left lower lobe. Some of this appearance could be artifactual due to the superimposed heart. The right lung is clear. Pleural spaces: Unremarkable. No pleural effusion. No pneumothorax. Heart/Mediastinum: See Lungs finding. Bones/joints: Unremarkable. XR/XR chest 1V portable [id number] IMPRESSION: Questionable left basilar infiltrates or atelectasis.
--- NOTE | 2021-06-13 20:07 | ECG_ITS ---
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 Measurements Intervals [place] Rate: 70 P: 83 VA: 272 QRS: 261 QRSD: 178 T: 0 QT: 466 QTc: 504 Interpretive Statements ELECTRONIC ATRIAL PACEMAKER ELECTRONIC VENTRICULAR PACEMAKER ABNORMAL RHYTHM ECG No previous ECG available for comparison Electronically Signed On 06-13-2021 21:40:39 GENERAL HELPER by Charisam Elam M.D. [id number]
[2021-06-13 20:09] VITALS: BP 179/98; PULSE 70; RESP 18; O2SAT 93
[2021-06-13 20:16] LABS: Basophils % 0.3 %; Eosinophils % 0.5 %; Hematocrit 40.9 % (37.0-47.0); Hemoglobin 13.2 g/dL (11.5-15.3); Lymphocytes # 1.3 10^3/uL (0.8-4.8); Lymphocytes % 20.1 %; Mean Corpuscular HGB Conc 32.3 g/dL (30.0-36.0); Mean Corpuscular Hemoglobin 28.4 pg (28.0-34.0); Mean Corpuscular Volume 88.1 fl (81-99); Monocytes # 0.4 10^3/uL (0.2-0.9); Neutrophils # 4.52 10^3/uL (1.8-7.7); Neutrophils % 71.5 %; Nucleated Red Blood Cells % 0 %; Platelet Count 126 10^3/cmm (130-400); Red Blood Count 4.64 10^6/uL (4.1-5.3); Red Cell Distribution Width 13.9 % (12.1-15.1); White Blood Count 6.3 10^3/uL (4.0-10.0)
[2021-06-13 20:32] LABS: Troponin(5th) Baseline 40 ng/L (0-10)
[2021-06-13 20:40] LABS: NT Pro B Type Natriuretic Pept 2497 pg/mL (0-125); Procalcitonin 0.06 ng/mL (0-0.5)
[2021-06-13 20:51] LABS: Alanine Aminotransferase 8 U/L (0-33); Albumin Level 3.3 g/dL (3.5-5.2); Alkaline Phosphatase 111 IU/L (35-105); Anion Gap 22.4 (5-19); Aspartate Amino Transferase 17 U/L (0-32); Blood Urea Nitrogen 13 mg/dL (8-23); Calcium 8.9 mg/dL (8.5-10.5); Carbon Dioxide 24 mmol/L (22-29); Chloride 97 mmol/L (98-107); Globulin 2.9 g/dL (1.3-4.6); Glucose 102 mg/dL (65-115); Osmolality Calculated 292 mOsm/kg (285-295); Sodium 141 mmol/L (136-145); Total Protein 6.2 g/dL (6.6-8.7)
[2021-06-13 20:52] LABS: Potassium 2.4 mmol/L (3.5-5.1)
[2021-06-13] MEDS: magnesium sulfate premix 2 GM/50 ML PIGGYBACK IV (21:18)
[2021-06-13] MEDS: potassium chloride ER 20 mEq Tablet 40 MEQ PO (21:22)
[2021-06-13] MEDS: sodium chloride 0.9% 500 ML IV (21:22)
[2021-06-13 21:32] LABS: ABG PCO2 38.8 mmHg (35-45); Arterial Blood Gas Hematocrit 38.1 % (37-47); Base Excess ABG 12.5 mmol/L (-2.0-2.0); Blood Gas Allen Test Pos; Blood Gas Operator Identificat glc; Blood Gas Sample Site Radial, right; Blood Gas Sample Type Arterial; HCO3 ABG 35.6 mmol/L (22-26); Oxygen Device NC; PO2 ABG 76.1 mmHg (80.0-100.0)
[2021-06-13 22:00] LABS: SARS Covid-2 Antigen Positive (Negative)
[2021-06-13 22:10] LABS: Magnesium 1.6 mg/dL (1.7-2.3)
[2021-06-13 22:13] VITALS: BP 175/108; PULSE 71; RESP 18; O2SAT 96
[2021-06-13] MEDS: lidocaine 1% 5 ML in potassium chloride premix 100 ML 50 ML IV (22:15)
[2021-06-13 22:20] LABS: Troponin 5 2HR 39.54 ng/L (0-10)
[2021-06-13 22:21] LABS: Troponin 5 2HR Delta -0.46 ABS# (0-10)
[2021-06-14 00:25] VITALS: BP 160/103; PULSE 81; RESP 19; O2SAT 96
[2021-06-14] MEDS: potassium chloride ER 20 mEq Tablet PO (00:31)
[2021-06-14 01:40] LABS: Anion Gap 16.8 (5-19); Blood Urea Nitrogen 13 mg/dL (8-23); Calcium 8.5 mg/dL (8.5-10.5); Carbon Dioxide 29 mmol/L (22-29); Chloride 101 mmol/L (98-107); Glucose 110 mg/dL (65-115); Osmolality Calculated 299 mOsm/kg (285-295); Sodium 144 mmol/L (136-145)
[2021-06-14 01:41] LABS: Potassium 2.8 mmol/L (3.5-5.1)
[2021-06-14 02:16] LABS: Troponin 5 6HR 38.61 ng/L (0-10)
[2021-06-14 02:20] LABS: Troponin 5 6HR Delta -1.39 ng/L (0-12)
[2021-06-14 02:52] VITALS: BP 178/98; PULSE 80; RESP 19; O2SAT 95
[2021-06-14 05:15] LABS: ABG PH Result 7.57 (7.35-7.45)
[2021-06-14 05:16] LABS: Blood Gas CCRB Time 1940
== END 2021-06-14 02:32 | disposition home or self-care (01) ==
PROVIDERS: Emergency Medicine; Emergency Provider Emergency Medicine; PCP Nurse Practitioner Family
DX: U07.1 COVID-19 (principal); R79.89 Other specified abnormal findings of blood chemistry; D69.6 Thrombocytopenia, unspecified; E87.6 Hypokalemia; E86.0 Dehydration; Z79.4 Long term (current) use of insulin; Z79.82 Long term (current) use of aspirin; E11.9 Type 2 diabetes mellitus without complications; Z95.0 Presence of cardiac pacemaker; I10 Essential (primary) hypertension; I25.2 Old myocardial infarction
CPT/HCPCS: 36415; 36600; 71045; 80048; 80053; 82803; 83735; 83880; 84145; 84484; 85025; 87426; 93005; 96365; 96366; 96375; 99284; J3475; J3480; J7040

== ENCOUNTER 2021-06-15 10:46 | Emergency (ER) | payer MEDICARE, SELFPAY ==
[2021-06-15] VITALS (35 sets, daily range): BP systolic 166–189; BP diastolic 109–134; PULSE 89; RESP 16; TEMP 36.6; O2SAT 93–100
--- NOTE | 2021-06-15 10:55 | XRR_ITS ---
PROCEDURE INFORMATION: Exam: XR Chest Exam date and time: 06/15/2021 10:55 AM Age: 71 years old Clinical indication: Cough and dyspnea; Additional info: Dyspnea/cough TECHNIQUE: Imaging protocol: XR of the chest. Views: 1 view. Total images: 1 COMPARISON: CR XR chest 1V portable [id number] 06/13/2021 8:15 PM FINDINGS: Tubes, catheters and devices: AICD projects in satisfactory location. Lungs: Slightly improved left pleuroparenchymal disease. Pleural spaces: No pneumothorax. Heart/Mediastinum: Heart size is stable when compared to the prior exam. Bones/joints: Osseous structures are unchanged from the prior exam. Organs: Surgical clips are present in the right upper quadrant which are suggestive of prior cholecystectomy. XR/XR chest 1V portable [id number] IMPRESSION: Slightly improved left pleuroparenchymal disease.
[2021-06-15 13:38] LABS: Basophils % 0.3 %; Eosinophils % 0.6 %; Hematocrit 40.1 % (37.0-47.0); Hemoglobin 12.9 g/dL (11.5-15.3); Lymphocytes # 1.5 10^3/uL (0.8-4.8); Lymphocytes % 20.5 %; Mean Corpuscular HGB Conc 32.2 g/dL (30.0-36.0); Mean Corpuscular Hemoglobin 28.7 pg (28.0-34.0); Mean Corpuscular Volume 89.1 fl (81-99); Mean Platelet Volume 9.7 fL (7.4-10.4); Monocytes # 0.4 10^3/uL (0.2-0.9); Neutrophils % 71.9 %; Nucleated Red Blood Cells % 0 %; Platelet Count 171 10^3/cmm (130-400); Red Cell Distribution Width 14.3 % (12.1-15.1); White Blood Count 7.2 10^3/uL (4.0-10.0)
[2021-06-15 13:57] LABS: D Dimer 1.17 ug/mIFEU (0-0.59)
[2021-06-15 14:08] LABS: Alanine Aminotransferase 8 U/L (0-33); Albumin Level 3.6 g/dL (3.5-5.2); Alkaline Phosphatase 113 IU/L (35-105); Anion Gap 18.7 (5-19); Aspartate Amino Transferase 14 U/L (0-32); Blood Urea Nitrogen 14 mg/dL (8-23); Calcium 9.2 mg/dL (8.5-10.5); Carbon Dioxide 27 mmol/L (22-29); Chloride 99 mmol/L (98-107); Glucose 152 mg/dL (65-115); Osmolality Calculated 297 mOsm/kg (285-295); Sodium 142 mmol/L (136-145); Total Bilirubin 0.9 mg/dL (0.15-1.2); Total Protein 6.6 g/dL (6.6-8.7)
[2021-06-15 14:10] LABS: Potassium 2.7 mmol/L (3.5-5.1)
[2021-06-15 14:14] LABS: Procalcitonin 0.07 ng/mL (0-0.5)
--- NOTE | 2021-06-15 14:31 | CTR_ITS ---
PROCEDURE INFORMATION: Exam: CTA Chest With Contrast Exam date and time: 06/15/2021 2:31 PM Age: 71 years old Clinical indication: Cough and shortness of breath; Prior surgery; Surgery date: 6+ months; Surgery type: Pace maker; Patient HX: SOB, elevated d-dimer, covid +; Additional info: Covid, SOB, elevated ddimer TECHNIQUE: Imaging protocol: Computed tomographic angiography of the chest with contrast. 3D rendering (Not supervised by radiologist): MIP and/or 3D reconstructed images were created by the technologist. Radiation optimization: All CT scans at this facility use at least one of these dose optimization techniques: automated exposure control; mA and/or kV adjustment per patient size (includes targeted exams where dose is matched to clinical indication); or iterative reconstruction. Contrast material: OMNI 350; Contrast volume: 67 ml; Contrast route: INTRAVENOUS (IV); COMPARISON: CR XR chest 1V portable [id number] 06/15/2021 11:23 AM RADIATION DOSE METRICS: Total DLP (mGy-cm): 490.72 FINDINGS: Tubes, catheters and devices: Left pacemaker with leads in the heart. Pulmonary arteries: Normal. No pulmonary emboli. 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 No dissection. Lungs: Patchy peripheral ground-glass opacities in all lung lobes. Patchy consolidations in the posterior left upper and lower lobes. 1.5 cm irregular consolidation or possible nodule in the left upper lobe, series 2, image 212. Pleural spaces: Small left pleural effusion. Heart: The heart size is upper normal. Lymph nodes: Unremarkable. No enlarged lymph nodes. Liver: Hypodensity in the liver is too small to characterize but is most likely a cyst. No follow-up imaging is recommended. Gallbladder and bile ducts: Cholecystectomy. Bones/joints: Degenerative changes of the thoracic spine. No fracture identified. Soft tissues: Unremarkable. CT/CT angio chest PE protcl [id number] IMPRESSION: 1. No evidence for pulmonary embolus. 2. Multilobar ground-glass opacities, consistent with COVID-19 pneumonia. 3. Patchy and nodular consolidations in the left upper and lower lobes. This could indicate superimposed bacterial pneumonia. 4. 1.5 cm irregular consolidation in the left upper lobe is most likely pneumonia. A pulmonary nodule is not excluded. Follow-up with CT imaging in 2-3 months is recommended to document resolution. 5. Small left pleural effusion.
[2021-06-15 14:44] LABS: Magnesium 1.8 mg/dL (1.7-2.3)
--- NOTE | 2021-06-15 16:07 | ED_ITS ---
Documented by User: Kiel Dang DO 06/16/21 06:35 HPI - COVID General: Chief Complaint: COVID symptoms Stated Complaint: COVID + SOB,CONFUSED,LOW02 Time Seen by Provider: 06/15/21 16:06 Triage information: Has fever, cough or shortness of breath . Exposure to COVID + person last 14 days History of Present Illness: 71-year-old female with history Covid. She tested positive on 06/13/2021. Comes in today just generally not feeling well. She continues to have a cough. She also has some myalgias. Some loose stools. She was discharged home when she was seen last on oxygen she only needs it when she is active today while lying on the exam gurney her sats remain in the mid 90s when she gets a move around a decrease. Reviewed her previous charts she is also significantly hypokalemic. She has not been taking potassium she was prescribed. MD complaint: known COVID positive Prior covid testing: yes, results known Prior testing date: 06/13/21 COVID 19 common symptoms: positive fever(s), chills, cough, non-productive cough, dyspnea, fatigue, body aches, headache(s), loss of sense of smell and/or taste, throat pain, nasal congestion, nausea and diarrhea; negative vomiting COVID 19 other sytmptoms: positive requiring oxygen; negative chest pain Onset (ago): hour(s) Pertinent comorbid conditions: diabetes, hypertension and obesity Treatment prior to arrival: acetaminophen, steroids and breathing treatments COVID Results: SARS-CoV-2 Antigen (Rapid) Positive (Negative) H 06/13/21 21:30 06/13/21 Review of Systems Const: Reports: fever(s), chills, body aches and fatigue ENMT: Reports: throat pain and nasal congestion Card: Denies: chest pain, edema, dyspnea on exertion or orthopnea Resp: Reports: dyspnea, non-productive cough and chest congestion GI: Reports: nausea and diarrhea; Denies: abdominal pain or vomiting : Denies: flank pain, difficulty voiding, dysuria, urinary frequency or urinary urgency Skin/Breast: Denies: rash or pruritus Neuro: Reports: headache(s) PFSH ED PFSH: Medical History Depression Diabetes mellitus Heart disease Hx of cardiac pacemaker Hypertension Hypothyroidism Migraine Myocardial infarction On anticoagulant therapy Renal insufficiency Sleep apnea Thyroid disease Surgical History Hx of cholecystectomy Hx of hysterectomy Family History Other Diabetes Heart disease Social History Smoking and tobacco status: never smoked Physical Exam Const: COMMON NORMALS: no acute distress GENERAL APPEARANCE: cooperative and comfortable ORIENTATION/CONSCIOUSNESS: Yes awake, Yes oriented to person, Yes oriented to place and Yes oriented to time HENMT: COMMON NORMALS: normocephalic and atraumatic HEAD & SCALP: normocephalic and atraumatic Neck/C-Spine: COMMON NORMALS: no JVD Resp: AUSCULTATION: crackles Cardio: COMMON NORMALS: no JVD, regular rate, regular rhythm and No murmurs present (Cardio) RATE: regular rate RHYTHM: regular rhythm GI: COMMON NORMALS: Soft to palpation and No hepatosplenomegaly present AUSCULTATION: Yes normoactive bowel sounds PALPATION: Yes Soft to palpation, No Tenderness to palpation present (GI), No Guarding due to palpation present (GI) and Yes No hepatosplenomegaly present Extremity: COMMON NORMALS: normal to inspection, capillary refill normal, no clubbing, cyanosis or edema, no calf tenderness and no pedal edema Neuro: SENSORIUM/ORIENTATION: Yes oriented to person, Yes oriented to place and Yes oriented to time Skin: COMMON NORMALS: no rashes or lesions noted GENERAL SKIN EXAM: no rashes or lesions noted Course Vital Signs: Vital signs: Vital Signs Temperature 98 F 06/15/21 11:12 Pulse Rate 89 06/15/21 11:12 Respiratory Rate 16 06/15/21 11:12 Blood Pressure 166/134 06/15/21 18:56 Pulse Oximetry 98 06/15/21 18:45 MDM - COVID Medical Decision Making Patient does have COVID-19 she is doing well at this morning she does need to continue her oxygen. She can also use Zofran as needed. Her hypokalemia was pretty significant she has been given replacement we also checked a magnesium which was normal. Pending a repeat potassium patient will likely go home. Took patient over from Dr. Peters follow-up potassium level she does have Covid fairly asymptomatic well-appearing here potassium is at 3 8 now she is stable for discharge she is to take her potassium supplement as prescribed follow-up with her PCP and return if worsening. Medical Records I reviewed the patient's medical records. Lab Data I reviewed the patient's lab results. : 06/15/21 13:28 06/15/21 19:29 Radiology Impressions Chest X-Ray 06/15/21 10:55 IMPRESSION: Slightly improved left pleuroparenchymal disease. Chest CTA 06/15/21 14:31 IMPRESSION: 1. No evidence for pulmonary embolus. 2. Multilobar ground-glass opacities, consistent with COVID-19 pneumonia. 3. Patchy and nodular consolidations in the left upper and lower lobes. This could indicate superimposed bacterial pneumonia. 4. 1.5 cm irregular consolidation in the left upper lobe is most likely pneumonia. A pulmonary nodule is not excluded. Follow-up with CT imaging in 2-3 months is recommended to document resolution. 5. Small left pleural effusion. Laboratory Results WBC 7.2 10^3/uL (4.0-10.0) 06/15/21 13:28 RBC 4.50 10^6/uL (4.1-5.3) 06/15/21 13:28 Hgb 12.9 g/dL (11.5-15.3) 06/15/21 13:28 Hct 40.1 % (37.0-47.0) 06/15/21 13:28 MCV 89.1 fl (81-99) 06/15/21 13:28 MCH 28.7 pg (28.0-34.0) 06/15/21 13:28 MCHC 32.2 g/dL (30.0-36.0) 06/15/21 13:28 RDW 14.3 % (12.1-15.1) 06/15/21 13:28 Plt Count 171 10^3/cmm (130-400) 06/15/21 13:28 MPV 9.7 fL (7.4-10.4) 06/15/21 13:28 Neut % (Auto) 71.9 % 06/15/21 13:28 Lymph % (Auto) 20.5 % 06/15/21 13:28 [place] % (Auto) 6.0 % 06/15/21 13:28 Eos % (Auto) 0.6 % 06/15/21 13:28 Baso % (Auto) 0.3 % 06/15/21 13:28 Neut # (Auto) 5.20 10^3/uL (1.8-7.7) 06/15/21 13:28 Lymph # (Auto) 1.5 10^3/uL (0.8-4.8) 06/15/21 13:28 [place] # (Auto) 0.4 10^3/uL (0.2-0.9) 06/15/21 13:28 Eos # (Auto) 0.0 10^3/uL (0.0-0.8) 06/15/21 13:28 Baso # (Auto) 0.0 10^3/uL (0.0-0.1) 06/15/21 13:28 Nucleated RBC % (auto) 0 % 06/15/21 13:28 Nucleated RBCs # 0.0 /100WBC 06/15/21 13:28 D-Dimer 1.17 ug/mIFEU (0-0.59) H 06/15/21 13:28 Sodium 141 mmol/L (136-145) 06/15/21 19:29 Potassium 3.9 mmol/L (3.5-5.1) 06/15/21 19:29 Chloride 102 mmol/L (98-107) 06/15/21 19:29 Carbon Dioxide 21 mmol/L (22-29) L 06/15/21 19:29 Anion Gap 21.9 (5-19) H 06/15/21 19:29 BUN 13 mg/dL (8-23) 06/15/21 19:29 Creatinine 0.8 mg/dL (0.5-0.9) 06/15/21 19:29 GFR Calculation Not Reportable 06/15/21 19:29 Glucose 145 mg/dL (65-115) H 06/15/21 19:29 Calculated Osmolality 295 mOsm/kg (285-295) 06/15/21 19:29 Calcium 8.9 mg/dL (8.5-10.5) 06/15/21 19:29 Magnesium 1.8 mg/dL (1.7-2.3) 06/15/21 13:28 Total Bilirubin 0.9 mg/dL (0.15-1.2) 06/15/21 13:28 AST 14 U/L (0-32) 06/15/21 13:28 ALT 8 U/L (0-33) 06/15/21 13:28 Alkaline Phosphatase 113 IU/L (35-105) H 06/15/21 13:28 Total Protein 6.6 g/dL (6.6-8.7) 06/15/21 13:28 Albumin 3.6 g/dL (3.5-5.2) 06/15/21 13:28 Globulin 3.0 g/dL (1.3-4.6) 06/15/21 13:28 Procalcitonin 0.07 ng/mL (0-0.5) 06/15/21 13:28 SARS-CoV-2 Antigen (Rapid) Positive (Negative) H 06/13/21 21:30 06/13/21 Discharge Plan Discharge Patient Disposition: Home Clinical Impression: COVID-19, Hypokalemia Condition: Stable Prescriptions: New Zofran 4 mg tablet 4 mg PO Q6H PRN (Reason: nausea and vomiting) Qty: 20 0RF No Action (DME) pen needle, diabetic [BD Ultra-Fine Short Pen Needle] 31 gauge x 5/16 needle See Rx Instructions .Route Qty: 100 5RF Rx Instructions: As directed Levemir FlexTouch U-100 Insuln 100 unit/mL (3 mL) insulin pen See Rx Instructions .ROUTE .COMPLEX Qty: 15 0RF Dose Instruction: INJECT 55 UNITS SUBCUTANEOUSLY AT BEDTIME Rx Instructions: INJECT 55 UNITS SUBCUTANEOUSLY AT BEDTIME carvedilol 25 mg Tablet 25 mg PO BID 0RF atorvastatin 20 mg Tablet 20 mg PO DAILY 0RF famotidine 40 mg Tablet 40 mg PO DAILY 0RF sertraline 100 mg Tablet 100 mg PO DAILY 0RF levothyroxine 75 mcg Tablet 75 mcg PO DAILY 0RF aspirin 81 mg Tablet,Chewable 81 mg PO DAILY 0RF furosemide [Lasix] 20 mg Tablet 20 mg PO DAILY 0RF bupropion HCl 150 mg Tablet Extended Release 24 Hr 150 mg PO BEDTIME 0RF cholecalciferol (vitamin D3) [Vitamin D3] 400 unit Tablet,Chewable 5,000 unit PO DIRECTED 0RF Rx Instructions: WEEKLY cyclobenzaprine 10 mg Tablet 10 mg PO TID PRN (Reason: Spasms) 0RF potassium chloride 8 mEq Tablet Extended Release 16 meq PO BID 0RF hydrocodone-acetaminophen 7.5-325 mg Tablet 1 tab PO Q6H PRN (Reason: Pain) 0RF Entresto 49-51 mg Tablet 1 tab PO BID 0RF potassium chloride 40 mEq/15 mL liquid 40 meq PO TID Qty: 473 0RF Discharge Orders: Discharge ED (Routine); Ordered 06/15/21 Ordered By: Lucía Christina Referrals: Acacia Welch FNP [Primary Care Provider] - Discharge Diet: Advance as tolerated Discharge Activity: Resume usual activity Patient Instructions: Hypokalemia (ED) Coding Level of Care Code ED Insurance Adjuster for Chg Fwd Documented by User: Lucía Christina MD 06/15/21 21:29 HPI - COVID General: Chief Complaint: COVID symptoms Stated Complaint: COVID + SOB,CONFUSED,LOW02 Time Seen by Provider: 06/15/21 16:06 History of Present Illness: 71-year-old female with history Covid COVID Results: SARS-CoV-2 Antigen (Rapid) Positive (Negative) H 06/13/21 21:30 06/13/21 [facility] ED PFSH: Medical History Depression Diabetes mellitus Heart disease Hx of cardiac pacemaker Hypertension Hypothyroidism Migraine Myocardial infarction On anticoagulant therapy Renal insufficiency Sleep apnea Thyroid disease Surgical History Hx of cholecystectomy Hx of hysterectomy Family History Other Diabetes Heart disease Social History Smoking and tobacco status: never smoked Course Vital Signs: Vital signs: Vital Signs Temperature 98 F 06/15/21 11:12 Pulse Rate 89 06/15/21 11:12 Respiratory Rate 16 06/15/21 11:12 Blood Pressure 166/134 06/15/21 18:56 Pulse Oximetry 98 06/15/21 18:45 MDM - COVID Medical Decision Making Took patient over from Dr. Peters follow-up potassium level she does have Covid fairly asymptomatic well-appearing here potassium is at 3 8 now she is stable for discharge she is to take her potassium supplement as prescribed follow-up with her PCP and return if worsening. Lab Data : 06/15/21 13:28 06/15/21 19:29 Radiology Impressions Chest X-Ray 06/15/21 10:55 IMPRESSION: Slightly improved left pleuroparenchymal disease. Chest CTA 06/15/21 14:31 IMPRESSION: 1. No evidence for pulmonary embolus. 2. Multilobar ground-glass opacities, consistent with COVID-19 pneumonia. 3. Patchy and nodular consolidations in the left upper and lower lobes. This could indicate superimposed bacterial pneumonia. 4. 1.5 cm irregular consolidation in the left upper lobe is most likely pneumonia. A pulmonary nodule is not excluded. Follow-up with CT imaging in 2-3 months is recommended to document resolution. 5. Small left pleural effusion. Laboratory Results WBC 7.2 10^3/uL (4.0-10.0) 06/15/21 13:28 RBC 4.50 10^6/uL (4.1-5.3) 06/15/21 13:28 Hgb 12.9 g/dL (11.5-15.3) 06/15/21 13:28 Hct 40.1 % (37.0-47.0) 06/15/21 13:28 MCV 89.1 fl (81-99) 06/15/21 13:28 MCH 28.7 pg (28.0-34.0) 06/15/21 13:28 MCHC 32.2 g/dL (30.0-36.0) 06/15/21 13:28 RDW 14.3 % (12.1-15.1) 06/15/21 13:28 Plt Count 171 10^3/cmm (130-400) 06/15/21 13:28 MPV 9.7 fL (7.4-10.4) 06/15/21 13:28 Neut % (Auto) 71.9 % 06/15/21 13:28 Lymph % (Auto) 20.5 % 06/15/21 13:28 [place] % (Auto) 6.0 % 06/15/21 13:28 Eos % (Auto) 0.6 % 06/15/21 13:28 Baso % (Auto) 0.3 % 06/15/21 13:28 Neut # (Auto) 5.20 10^3/uL (1.8-7.7) 06/15/21 13:28 Lymph # (Auto) 1.5 10^3/uL (0.8-4.8) 06/15/21 13:28 [place] # (Auto) 0.4 10^3/uL (0.2-0.9) 06/15/21 13:28 Eos # (Auto) 0.0 10^3/uL (0.0-0.8) 06/15/21 13:28 Baso # (Auto) 0.0 10^3/uL (0.0-0.1) 06/15/21 13:28 Nucleated RBC % (auto) 0 % 06/15/21 13:28 Nucleated RBCs # 0.0 /100WBC 06/15/21 13:28 D-Dimer 1.17 ug/mIFEU (0-0.59) H 06/15/21 13:28 Sodium 141 mmol/L (136-145) 06/15/21 19:29 Potassium 3.9 mmol/L (3.5-5.1) 06/15/21 19:29 Chloride 102 mmol/L (98-107) 06/15/21 19:29 Carbon Dioxide 21 mmol/L (22-29) L 06/15/21 19:29 Anion Gap 21.9 (5-19) H 06/15/21 19:29 BUN 13 mg/dL (8-23) 06/15/21 19:29 Creatinine 0.8 mg/dL (0.5-0.9) 06/15/21 19:29 GFR Calculation Not Reportable 06/15/21 19:29 Glucose 145 mg/dL (65-115) H 06/15/21 19:29 Calculated Osmolality 295 mOsm/kg (285-295) 06/15/21 19:29 Calcium 8.9 mg/dL (8.5-10.5) 06/15/21 19:29 Magnesium 1.8 mg/dL (1.7-2.3) 06/15/21 13:28 Total Bilirubin 0.9 mg/dL (0.15-1.2) 06/15/21 13:28 AST 14 U/L (0-32) 06/15/21 13:28 ALT 8 U/L (0-33) 06/15/21 13:28 Alkaline Phosphatase 113 IU/L (35-105) H 06/15/21 13:28 Total Protein 6.6 g/dL (6.6-8.7) 06/15/21 13:28 Albumin 3.6 g/dL (3.5-5.2) 06/15/21 13:28 Globulin 3.0 g/dL (1.3-4.6) 06/15/21 13:28 Procalcitonin 0.07 ng/mL (0-0.5) 06/15/21 13:28 SARS-CoV-2 Antigen (Rapid) Positive (Negative) H 06/13/21 21:30 06/13/21 Discharge Plan Discharge Patient Disposition: Home Clinical Impression: COVID-19, Hypokalemia Condition: Stable Prescriptions: New Zofran 4 mg tablet 4 mg PO Q6H PRN (Reason: nausea and vomiting) Qty: 20 0RF No Action (DME) pen needle, diabetic [BD Ultra-Fine Short Pen Needle] 31 gauge x 5/16 needle See Rx Instructions .Route Qty: 100 5RF Rx Instructions: As directed Levemir FlexTouch U-100 Insuln 100 unit/mL (3 mL) insulin pen See Rx Instructions .ROUTE .COMPLEX Qty: 15 0RF Dose Instruction: INJECT 55 UNITS SUBCUTANEOUSLY AT BEDTIME Rx Instructions: INJECT 55 UNITS SUBCUTANEOUSLY AT BEDTIME carvedilol 25 mg Tablet 25 mg PO BID 0RF atorvastatin 20 mg Tablet 20 mg PO DAILY 0RF famotidine 40 mg Tablet 40 mg PO DAILY 0RF sertraline 100 mg Tablet 100 mg PO DAILY 0RF levothyroxine 75 mcg Tablet 75 mcg PO DAILY 0RF aspirin 81 mg Tablet,Chewable 81 mg PO DAILY 0RF furosemide [Lasix] 20 mg Tablet 20 mg PO DAILY 0RF bupropion HCl 150 mg Tablet Extended Release 24 Hr 150 mg PO BEDTIME 0RF cholecalciferol (vitamin D3) [Vitamin D3] 400 unit Tablet,Chewable 5,000 unit PO DIRECTED 0RF Rx Instructions: WEEKLY cyclobenzaprine 10 mg Tablet 10 mg PO TID PRN (Reason: Spasms) 0RF potassium chloride 8 mEq Tablet Extended Release 16 meq PO BID 0RF hydrocodone-acetaminophen 7.5-325 mg Tablet 1 tab PO Q6H PRN (Reason: Pain) 0RF Entresto 49-51 mg Tablet 1 tab PO BID 0RF potassium chloride 40 mEq/15 mL liquid 40 meq PO TID Qty: 473 0RF Discharge Orders: Discharge ED (Routine); Ordered 06/15/21 Ordered By: Lucía Christina Referrals: Welch,Acacia, TANK WELDER [Primary Care Provider] - Discharge Diet: Advance as tolerated Discharge Activity: Resume usual activity Patient Instructions: Hypokalemia (ED) Coding Level of Care Code ED Insurance Adjuster for Oscar Yoon
[2021-06-15] MEDS: potassium chloride oral liq 20 mEq/15 mL UDC 60 MEQ PO (16:52)
[2021-06-15] MEDS: iohexol 350 mg/mL 100 mL Btl IV (17:25)
[2021-06-15 20:35] LABS: Blood Urea Nitrogen 13 mg/dL (8-23); Calcium 8.9 mg/dL (8.5-10.5); Carbon Dioxide 21 mmol/L (22-29); Chloride 102 mmol/L (98-107); Glucose 145 mg/dL (65-115); Osmolality Calculated 295 mOsm/kg (285-295); Sodium 141 mmol/L (136-145)
[2021-06-15 20:37] LABS: Anion Gap 21.9 (5-19); Potassium 3.9 mmol/L (3.5-5.1)
== END 2021-06-15 21:24 | disposition home or self-care (01) ==
PROVIDERS: Family Medicine; Physician Assistant; Emergency Provider Emergency Medicine; PCP Nurse Practitioner Family
DX: U07.1 COVID-19 (principal); E87.6 Hypokalemia; Z79.82 Long term (current) use of aspirin; Z79.4 Long term (current) use of insulin; E11.9 Type 2 diabetes mellitus without complications; Z95.0 Presence of cardiac pacemaker; I10 Essential (primary) hypertension; I25.2 Old myocardial infarction
CPT/HCPCS: 71045; 71275; 80048; 80053; 83735; 84145; 85025; 85378; 99284; Q9967

== ENCOUNTER 2021-06-18 09:00 | Emergency (ER) | payer MEDICARE, SELFPAY ==
[2021-06-18 09:19] VITALS: BP 182/119; PULSE 91; RESP 16; TEMP 36.5; O2SAT 94; BMI 36.6
[2021-06-18 09:27] VITALS: BP 182/119; PULSE 93; O2SAT 94
--- NOTE | 2021-06-18 09:40 | W.ED.HA ---
HPI - Headache General: Chief Complaint: Headache Stated Complaint: COVID + Getting Worse Time Seen by Provider: 06/18/21 09:27 History of Present Illness: Patient states that she had a headache today. She is thought that her COVID might be getting worse. She is almost 1 week positive test. She had symptoms approximately 2 to 4 weeks prior to getting tested. Patient denies any shortness of breath or chest pain fever or chills. Patient's headache is actually gone now on presentation to the ER. Patient did not take her blood pressure medicine this morning. Patient is also not checking her sugars on a regular basis even though she does give herself insulin. Associated symptoms: Reports nausea and vomiting; Deny chest pain, fever(s) or rash Review of Systems Const: Denies: fever(s), chills or body aches Eyes: Denies: eye discomfort ENMT: Denies: throat pain Card: Reports: dyspnea on exertion; Denies: chest pain Resp: Denies: dyspnea GI: Reports: nausea and vomiting; Denies: abdominal pain Skin/Breast: Denies: rash Neuro: Reports: headache(s) (Woke up with this morning it is now gone.) Psych: Denies: depression or suicidal ideation PFSH ED PFSH: Medical History Depression Diabetes mellitus Heart disease Hx of cardiac pacemaker Hypertension Hypothyroidism Migraine Myocardial infarction On anticoagulant therapy Renal insufficiency Sleep apnea Thyroid disease Surgical History Hx of cholecystectomy Hx of hysterectomy Family History Other Diabetes Heart disease Social History Smoking and tobacco status: never smoked Physical Exam Const: COMMON NORMALS: no acute distress, patient oriented x3 and alert HENMT: COMMON NORMALS: normocephalic HEAD & SCALP: normocephalic Eye: COMMON NORMALS: EOMs intact bilaterally Neck/C-Spine: COMMON NORMALS: no JVD Resp: COMMON NORMALS: normal respiratory effort and No use of accessory muscles Cardio: COMMON NORMALS: no JVD GI: INSPECTION: Yes normal to inspection Extremity: COMMON NORMALS: normal to inspection and full ROM Neuro: COMMON NORMALS: patient oriented x3 SENSORIUM/ORIENTATION: Yes alert SPEECH: speech normal (Does seem to have some brain fog type presentation) GAIT: Yes Normal gait present Psych: COMMON NORMALS: mental status grossly normal Skin: COMMON NORMALS: no rashes or lesions noted GENERAL SKIN EXAM: no rashes or lesions noted Course Vital Signs: Vital signs: Vital Signs Temperature 97.7 F 06/18/21 09:19 Pulse Rate 93 06/18/21 09:27 Respiratory Rate 16 06/18/21 09:19 Blood Pressure 182/119 06/18/21 09:27 Pulse Oximetry 94 06/18/21 09:27 MDM - Headache Medical Decision Making Patient relates she came into the ER for headache that started this morning. She did not take her medication as prescribed. Patient says she is anxious about the having Covid. She denies any shortness of breath and said actually her symptoms have improved since seen here on . Patient does not have a headache presently and is requesting to go home. She would like to have her blood sugar checked because she is not been checking her self. Patient is hypertensive because she did not take her medication I was supposed. I encourage patient go straight home take your medication as prescribed check your blood pressures twice daily and report those back to her primary care provider after 2 weeks. Lab Data Laboratory Results POC Glucose 239 mg/dL (70-110) H 06/18/21 09:43 Discharge Plan Discharge Patient Disposition: Home Clinical Impression: [id number] condition, Benign essential HTN, Headache Condition: Stable Prescriptions: No Action (DME) pen needle, diabetic [BD Ultra-Fine Short Pen Needle] 31 gauge x 5/16 needle See Rx Instructions .Route Qty: 100 5RF Rx Instructions: As directed Levemir FlexTouch U-100 Insuln 100 unit/mL (3 mL) insulin pen See Rx Instructions .ROUTE .COMPLEX Qty: 15 0RF Dose Instruction: INJECT 55 UNITS SUBCUTANEOUSLY AT BEDTIME Rx Instructions: INJECT 55 UNITS SUBCUTANEOUSLY AT BEDTIME carvedilol 25 mg Tablet 25 mg PO BID 0RF atorvastatin 20 mg Tablet 20 mg PO DAILY 0RF famotidine 40 mg Tablet 40 mg PO DAILY 0RF sertraline 100 mg Tablet 100 mg PO DAILY 0RF levothyroxine 75 mcg Tablet 75 mcg PO DAILY 0RF aspirin 81 mg Tablet,Chewable 81 mg PO DAILY 0RF furosemide [Lasix] 20 mg Tablet 20 mg PO DAILY 0RF bupropion HCl 150 mg Tablet Extended Release 24 Hr 150 mg PO BEDTIME 0RF cholecalciferol (vitamin D3) [Vitamin D3] 400 unit Tablet,Chewable 5,000 unit PO DIRECTED 0RF Rx Instructions: WEEKLY cyclobenzaprine 10 mg Tablet 10 mg PO TID PRN (Reason: Spasms) 0RF potassium chloride 8 mEq Tablet Extended Release 16 meq PO BID 0RF hydrocodone-acetaminophen 7.5-325 mg Tablet 1 tab PO Q6H PRN (Reason: Pain) 0RF Entresto 49-51 mg Tablet 1 tab PO BID 0RF potassium chloride 40 mEq/15 mL liquid 40 meq PO TID Qty: 473 0RF Zofran 4 mg tablet 4 mg PO Q6H PRN (Reason: nausea and vomiting) Qty: 20 0RF Discharge Orders: Discharge ED (Routine); Ordered 06/18/21 Ordered By: Joaquin Esparza Referrals: Welch,FOREST RgoerP [Primary Care Provider] - Discharge Diet: Usual diet Discharge Activity: Increase activity as tolerated Patient Instructions: Chronic Hypertension (ED), Long COVID (ED) Activity Restrictions/Additional Instructions: Make sure that you take your blood pressure medicine as scheduled. Make sure that you check your blood sugars at least twice daily. Follow-up your primary care provider here in the next week or 2. Coding Level of Care Code ED Supply Assistant for Oscar Fwmillie Exam Comprehensive
[2021-06-18 09:46] LABS: Glucose Point of Care 239 mg/dL (70-110)
[2021-06-18] MEDS: carvedilol 25 mg Tablet PO (09:57)
[2021-06-18 09:58] VITALS: BP 198/156; PULSE 91; O2SAT 93
== END 2021-06-18 10:08 | disposition home or self-care (01) ==
PROVIDERS: Emergency Provider Nurse Practitioner Family; PCP Nurse Practitioner Family
DX: R51.9 Headache, unspecified (principal); U09.9 Post COVID-19 condition, unspecified; I10 Essential (primary) hypertension; Z79.4 Long term (current) use of insulin; Z79.82 Long term (current) use of aspirin; E11.9 Type 2 diabetes mellitus without complications; Z95.0 Presence of cardiac pacemaker; I25.2 Old myocardial infarction
CPT/HCPCS: 36416; 82962; 99283

== ENCOUNTER 2021-07-25 21:53 | Observation (INO) | payer MEDICARE, SELFPAY ==
[2021-07-25 21:56] VITALS: BP 140/55; PULSE 78; RESP 16; TEMP 36.6
--- NOTE | 2021-07-25 21:56 | XRR_ITS ---
PROCEDURE INFORMATION: Exam: XR Chest Exam date and time: 07/25/2021 9:56 PM Age: 71 years old Clinical indication: Cough; Prior surgery; Surgery type: Pacemaker; Additional info: Cp TECHNIQUE: Imaging protocol: XR of the chest. Views: 1 view. COMPARISON: CR XR chest 1V portable [id number] 06/15/2021 11:23 AM FINDINGS: Tubes, catheters and devices: There is a pacemaker in the left chest wall. There are 4 leads present. This is unchanged from the prior x-ray. Lungs: There is persistent airspace disease at the left lung base. The lungs are otherwise clear. Pleural spaces: There is blunting of the left costophrenic angle consistent with a small left pleural effusion. Heart/Mediastinum: Unremarkable. No cardiomegaly. Bones/joints: Unremarkable. XR/XR chest 1V portable [id number] IMPRESSION: Small left pleural effusion with adjacent atelectasis or pneumonia partly obscured by pacemaker. No significant change from prior x-ray
--- NOTE | 2021-07-25 21:56 | CTR_ITS ---
PROCEDURE INFORMATION: Exam: CT Head Without Contrast Exam date and time: 07/25/2021 9:56 PM Age: 71 years old Clinical indication: Speech disturbance and walking, difficulty and weakness, extremity; Right; Aphasia; Patient HX: Sudden onset of RT sided weakness with difficulty completing sentences. ; Additional info: Symptoms of acute stroke TECHNIQUE: Imaging protocol: Computed tomography of the head without contrast. Radiation optimization: All CT scans at this facility use at least one of these dose optimization techniques: automated exposure control; mA and/or kV adjustment per patient size (includes targeted exams where dose is matched to clinical indication); or iterative reconstruction. Other technique: STROKE PROTOCOL was implemented. COMPARISON: No relevant prior studies available. RADIATION DOSE METRICS: Total DLP (mGy-cm): 880.94 FINDINGS: Brain: There is age-related volume loss. There is periventricular white matter lucency consistent with chronic microvascular disease. No acute infarct is identified. There is no hemorrhage or extra-axial collection. There is no mass. Cerebral ventricles: No ventriculomegaly. Paranasal sinuses: There is mucosal thickening in the sinuses. There are multiple air-fluid levels. Mastoid air cells: Visualized mastoid air cells are well aerated. Bones/joints: Unremarkable. No acute fracture. Soft tissues: Unremarkable. CT/CT head wo con* [id number] IMPRESSION: 1. There is chronic microvascular disease. 2. No acute intracranial lesion or injury ASSESSMENT: ASPECTS ([place] Stroke Program Early CT Score) is 10.
[2021-07-25 21:58] VITALS: TEMP 35.9; BMI 35.8
--- NOTE | 2021-07-25 22:06 | ED_ITS ---
HPI - Neuro Symptoms/Deficit General: Chief Complaint: Weakness Stated Complaint: Possible stroke Time Seen by Provider: 07/25/21 21:56 Source: patient and EMS Mode of arrival: EMS Limitations: no limitations History of Present Illness: 71-year-old female family is concerned could have had a stroke he states that starting at 7 PM she had extreme weakness had difficulty walking more just global weakness to her bilateral lower extremities she had some confusion today states she has been having confusion for weeks though. Here she able answer my questions correctly she does have some confusion no focal deficits here she denies headache denies any injuries denies any fevers. Associated symptoms: Deny chest pain, nausea or vomiting Review of Systems Const: Denies: fever(s), chills, body aches or change in appetite Eyes: Denies: blurry vision or eye discomfort ENMT: Denies: throat pain or dental pain Card: Denies: chest pain Resp: Denies: dyspnea GI: Denies: abdominal pain, nausea, vomiting or diarrhea : Denies: dysuria Musc: Reports: muscle weakness Skin/Breast: Denies: rash Neuro: Reports: numbness in extremities and Slurred speech present Psych: Denies: depression Tor/Lymph: Denies: easy bruising All/Imm: Denies: urticaria PFSH ED PFSH: Medical History Depression Diabetes mellitus Heart disease Hx of cardiac pacemaker Hypertension Hypothyroidism Migraine Myocardial infarction On anticoagulant therapy Renal insufficiency Sleep apnea Thyroid disease Surgical History Hx of cholecystectomy Hx of hysterectomy Family History Other Diabetes Heart disease Social History Smoking and tobacco status: never smoked NIH stroke score NIHSS: Level Of Consciousness - 1a: 0 Level Of Consciousness Questions - 1b: Both Correct Level Of Consciousness Commands - 1c: Both Correct Best Gaze - 2: Normal Visual Pearl - 3: No Visual Loss Facial Palsy - 4: Normal Motor Arm Right - 5: No Drift Motor Arm Left - 5: No Drift Motor Leg Right - 6: No Drift Motor Leg Left - 6: No Drift Limb Ataxia - 7: Absent Sensory - 8: Normal Best Language - 9: No Aphasia Dysarthia - 10: Normal Extinction And Inattention - 11: 0 Score: Total Score: 0 Physical Exam Const: COMMON NORMALS: no acute distress, patient oriented x3 and healthy appearing HENMT: COMMON NORMALS: normocephalic and atraumatic HEAD & SCALP: normocephalic and atraumatic Eye: COMMON NORMALS: Equal, round and reactive pupils present and EOMs intact bilaterally PUPIL: Yes Equal, round and reactive pupils present Neck/C-Spine: COMMON NORMALS: full ROM and supple Chest: COMMONS NORMALS: normal inspection of the chest and normal palpation of entire chest wall Resp: COMMON NORMALS: normal respiratory effort, No retractions, No use of accessory muscles and clear to auscultation bilaterally AUSCULTATION: clear to auscultation bilaterally Cardio: COMMON NORMALS: regular rate, regular rhythm and No murmurs present (Cardio) RATE: regular rate RHYTHM: regular rhythm GI: COMMON NORMALS: Normal to inspection, nondistended, normoactive bowel sounds present, Soft to palpation, non-tender and no masses PALPATION: Yes Soft to palpation Extremity: COMMON NORMALS: normal to inspection and full ROM Neuro: COMMON NORMALS: patient oriented x3, moves all extremities and no focal motor deficits Psych: COMMON NORMALS: mental status grossly normal, Normal thought process present and cooperative THOUGHT PROCESS: Normal thought process present Skin: COMMON NORMALS: no rashes or lesions noted and no wounds GENERAL SKIN EXAM: no rashes or lesions noted Course Vital Signs: Vital signs: Vital Signs Temperature 96.7 F L 07/25/21 21:58 MDM - Neuro Symptoms/Deficit Medical Decision Making Patient presents here with some confusion she had no focal deficits no signs of a stroke. She does have a urinary tract infection could be causing her symptoms including weakness I spoke to the hospitalist will admit. Lab Data : 07/25/21 22:09 07/25/21 22:09 Radiology Impressions Chest X-Ray 07/25/21 21:56 IMPRESSION: Small left pleural effusion with adjacent atelectasis or pneumonia partly obscured by pacemaker. No significant change from prior x-ray Head CT 07/25/21 21:56 IMPRESSION: 1. There is chronic microvascular disease. 2. No acute intracranial lesion or injury ASSESSMENT: ASPECTS ([place] Stroke Program Early CT Score) is 10. Head/Neck CTA 07/25/21 22:33 IMPRESSION: No intracranial large vessel stenosis or occlusion IMPRESSION: No carotid or vertebral artery stenosis. REFERENCES: NASCET CRITERIA. The degree of internal carotid artery stenosis is based on NASCET criteria. Normal is no stenosis. Mild is less than 50% stenosis. Moderate is 50-69% stenosis. Severe is 70% to 99% stenosis. Total occlusion is no detectable patent lumen. Laboratory Results WBC 10.0 10^3/uL (4.0-10.0) 07/25/21 22:09 RBC 3.97 10^6/uL (4.1-5.3) L 07/25/21 22: Hgb 11.5 g/dL (11.5-15.3) 07/25/21 22: Hct 35.6 % (37.0-47.0) L 07/25/21 22: MCV 89.7 fl (81-99) 07/25/21 22: MCH 29.0 pg (28.0-34.0) 07/25/21 22: MCHC 32.3 g/dL (30.0-36.0) 07/25/21 22: RDW 14.4 % (12.1-15.1) 07/25/21 22: Plt Count 235 10^3/cmm (130-400) 07/25/21 22: MPV 9.8 fL (7.4-10.4) 07/25/21 22: Neut % (Auto) 81.7 % 07/25/21 22:09 Lymph % (Auto) 11.0 % 07/25/21 22:09 [place] % (Auto) 4.2 % 07/25/21 22:09 Eos % (Auto) 2.0 % 07/25/21 22:09 Baso % (Auto) 0.3 % 07/25/21: Neut # (Auto) 8.15 10^3/uL (1.8-7.7) H 07/25/21 22:09 Lymph # (Auto) 1.1 10^3/uL (0.8-4.8) 07/25/21 22: [place] # (Auto) 0.4 10^3/uL (0.2-0.9) 07/25/21 22:09 Eos # (Auto) 0.2 10^3/uL (0.0-0.8) 07/25/21 22:09 Baso # (Auto) 0.0 10^3/uL (0.0-0.1) 07/25/21 22:09 Nucleated RBC % (auto) 0 % 07/25/21 22:09 Nucleated RBCs # 0.0 /100WBC 07/25/21 22:09 PT 14.10 SECONDS (12.1-14.9) 07/25/21 22:09 INR 1.06 (0.8-1.2) 07/25/21 22:09 APTT 30.0 SECONDS (23.9-36.7) 07/25/21 22:09 Sodium 140 mmol/L (136-145) 07/25/21 22:09 Potassium 2.8 mmol/L (3.5-5.1) L* 07/25/21 22:09 Chloride 99 mmol/L (98-107) 07/25/21 22:09 Carbon Dioxide 29 mmol/L (22-29) 07/25/21 22:09 Anion Gap 14.8 (5-19) 07/25/21 22:09 BUN 12 mg/dL (8-23) 07/25/21 22:09 Creatinine 1.1 mg/dL (0.5-0.9) H 07/25/21 22:09 GFR Calculation Not Reportable 07/25/21 22:09 Glucose 317 mg/dL (65-115) H 07/25/21 22:09 POC Glucose 286 mg/dL (70-110) H 07/25/21 22:08 Calculated Osmolality 302 mOsm/kg (285-295) H 07/25/21 22:09 Calcium 9.0 mg/dL (8.5-10.5) 07/25/21 22:09 Total Bilirubin 0.7 mg/dL (0.15-1.2) 07/25/21 22:09 AST 10 U/L (0-32) 07/25/21 22:09 ALT 10 U/L (0-33) 07/25/21 22:09 Alkaline Phosphatase 85 IU/L (35-105) 07/25/21 22:09 Troponin T Baseline 59 ng/L (0-10) H 07/25/21 22:09 Total Protein 5.7 g/dL (6.6-8.7) L 07/25/21 22: Albumin 3.5 g/dL (3.5-5.2) 07/25/21 22: Globulin 2.2 g/dL (1.3-4.6) 07/25/21 22: Urine Color Yellow (Yellow) 07/25/21: Urine Appearance Hazy (CLEAR) A 07/25/21: Urine pH 6 (5-7) 07/25/21: Ur Specific [place] 1.020 (1.005-1.030) 07/25/21: Urine Protein Trace (Negative) 07/25/21: Urine Glucose (UA) Trace (Normal) H 07/25/21: Urine Ketones Negative (Negative) 07/25/21: Urine Blood 2+ (Negative) H 07/25/21: Urine Nitrate Positive (Negative) H 07/25/21: Urine Bilirubin 1+ (Negative) H 07/25/21: Urine Urobilinogen 1 mg/dL (Negative) H 07/25/21: Ur Leukocyte Esterase 2+ (Negative) H 07/25/21: Urine RBC 0-4 /hpf (0-2) H 07/25/21 22: Urine WBC >100 /hpf (0-5) H 07/25/21: Ur Squamous Epith Cells 0-4 /hpf (0-5) H 07/25/21: Amorphous Sediment Not Reportable 07/25/21 22: Urine Bacteria 4+ /hpf (NONE) H 07/25/21 22:29 Urine Opiates Screen Positive ng/mL (Negative) H 07/25/21: Ur Barbiturates Screen Negative ng/mL (Negative) 07/25/21: Ur Phencyclidine Scrn Negative ng/mL (Negative) 07/25/21: Ur Amphetamines Screen Negative ng/mL (Negative) 07/25/21: U Benzodiazepines Scrn Negative ng/mL (Negative) 07/25/21: Urine Cocaine Screen Negative ng/mL (Negative) 07/25/21 22:29 U Marijuana (THC) Screen Negative ng/mL (Negative) 07/25/21 22:29 EKG Data EKG 1: I personally reviewed and interpreted this EKG as follows: EKG interpretation date: 07/25/21 EKG interpretation time: 22:04 Interpretation: paced hr [address] or t wave abnormalities qrs 191 qtc 322 Discharge Plan Discharge Patient Disposition: Admitted As Inpatient Clinical Impression: Acute cystitis, Altered mental status Condition: Stable Prescriptions: No Action (DME) pen needle, diabetic [BD Ultra-Fine Short Pen Needle] 31 gauge x 5/16 needle See Rx Instructions .Route Qty: 100 5RF Rx Instructions: As directed Levemir FlexTouch U-100 Insuln 100 unit/mL (3 mL) insulin pen See Rx Instructions .ROUTE .COMPLEX Qty: 15 0RF Dose Instruction: INJECT 55 UNITS SUBCUTANEOUSLY AT BEDTIME Rx Instructions: INJECT 55 UNITS SUBCUTANEOUSLY AT BEDTIME carvedilol 25 mg Tablet 25 mg PO BID 0RF atorvastatin 20 mg Tablet 20 mg PO DAILY 0RF famotidine 40 mg Tablet 40 mg PO DAILY 0RF sertraline 100 mg Tablet 100 mg PO DAILY 0RF levothyroxine 75 mcg Tablet 75 mcg PO DAILY 0RF aspirin 81 mg Tablet,Chewable 81 mg PO DAILY 0RF furosemide [Lasix] 20 mg Tablet 20 mg PO DAILY 0RF bupropion HCl 150 mg Tablet Extended Release 24 Hr 150 mg PO BEDTIME 0RF cholecalciferol (vitamin D3) [Vitamin D3] 400 unit Tablet,Chewable 5,000 unit PO DIRECTED 0RF Rx Instructions: WEEKLY cyclobenzaprine 10 mg Tablet 10 mg PO TID PRN (Reason: Spasms) 0RF potassium chloride 8 mEq Tablet Extended Release 16 meq PO BID 0RF hydrocodone-acetaminophen 7.5-325 mg Tablet 1 tab PO Q6H PRN (Reason: Pain) 0RF Entresto 49-51 mg Tablet 1 tab PO BID 0RF potassium chloride 40 mEq/15 mL liquid 40 meq PO TID Qty: 473 0RF Zofran 4 mg tablet 4 mg PO Q6H PRN (Reason: nausea and vomiting) Qty: 20 0RF Referrals: Welch,Acacia, VENEER GRADER [Primary Care Provider] - Coding Level of Care Code ED Wash Box Operator for Chg Fwd Exam Comprehensive
[2021-07-25 22:10] LABS: Glucose Point of Care 286 mg/dL (70-110)
--- NOTE | 2021-07-25 22:14 | ECG_ITS ---
[facility] Test Date: 2021-07-25 Pat Name: Wendy Dockery Department: Room: Gender: Female Line Controller: : 1950 Requested By: Lucía Christina Order Number: [id number] Ilana MD: Aec Santizo M.D. Measurements Intervals [place] Rate: 73 P: 12 SC: 276 QRS: 217 QRSD: 191 T: 120 QT: 497 QTc: 549 Interpretive Statements ELECTRONIC VENTRICULAR PACEMAKER ABNORMAL RHYTHM ECG Compared to ECG 06/13/2021 21:36:24 Atrial-paced complex(es) or rhythm no longer present Electronically Signed On 07-26-2021 23:05:01 AREA SALES MANAGER by Ace Santizo M.D. [id number]
[2021-07-25 22:16] LABS: Basophils % 0.3 %; Eosinophils # 0.2 10^3/uL (0.0-0.8); Hematocrit 35.6 % (37.0-47.0); Hemoglobin 11.5 g/dL (11.5-15.3); Lymphocytes # 1.1 10^3/uL (0.8-4.8); Mean Corpuscular HGB Conc 32.3 g/dL (30.0-36.0); Mean Corpuscular Volume 89.7 fl (81-99); Mean Platelet Volume 9.8 fL (7.4-10.4); Monocytes # 0.4 10^3/uL (0.2-0.9); Monocytes % 4.2 %; Neutrophils # 8.15 10^3/uL (1.8-7.7); Neutrophils % 81.7 %; Nucleated Red Blood Cells % 0 %; Platelet Count 235 10^3/cmm (130-400); Red Blood Count 3.97 10^6/uL (4.1-5.3); Red Cell Distribution Width 14.4 % (12.1-15.1)
[2021-07-25 22:27] LABS: INR 1.06 (0.8-1.2)
--- NOTE | 2021-07-25 22:33 | CTR_ITS ---
PROCEDURE INFORMATION: Exam: CT Angiography Head With Contrast, Arteriography Exam date and time: 07/25/2021 10:33 PM Age: 71 years old Clinical indication: Speech disturbance and weakness; Patient HX: Weakness and difficulty speaking/slurred speech TECHNIQUE: Imaging protocol: Computed tomography angiography of the head with contrast. Exam focused on the arteries. 3D rendering (Not supervised by radiologist): MIP and/or 3D reconstructed images were created by the technologist. Radiation optimization: All CT scans at this facility use at least one of these dose optimization techniques: automated exposure control; mA and/or kV adjustment per patient size (includes targeted exams where dose is matched to clinical indication); or iterative reconstruction. Contrast material: VISIPAQUE 320; Contrast volume: 95 ml; Contrast route: INTRAVENOUS (IV); COMPARISON: CT head wo con* [id number] 07/25/2021 9:57 PM RADIATION DOSE METRICS: Total DLP (mGy-cm): 2331.8 FINDINGS: ANTERIOR CIRCULATION: Right internal carotid artery: Unremarkable. Intracranial segment is patent with no significant stenosis. No aneurysm. Right middle cerebral artery: Unremarkable. No occlusion or significant stenosis. No aneurysm. Right anterior cerebral artery: Unremarkable. No occlusion or significant stenosis. No aneurysm. Left internal carotid artery: Unremarkable. Intracranial segment is patent with no significant stenosis. No aneurysm. Left middle cerebral artery: Unremarkable. No occlusion or significant stenosis. No aneurysm. Left anterior cerebral artery: Unremarkable. No occlusion or significant stenosis. No aneurysm. POSTERIOR CIRCULATION: Right vertebral artery: Unremarkable. No occlusion or significant stenosis. No aneurysm. Left vertebral artery: The left vertebral artery is markedly dominant. No stenosis. No aneurysm. Basilar artery: Unremarkable. No occlusion or significant stenosis. No aneurysm. Right posterior cerebral artery: Unremarkable. No occlusion or significant stenosis. No aneurysm. Left posterior cerebral artery: Unremarkable. No occlusion or significant stenosis. No aneurysm. Brain: See head CT PROCEDURE INFORMATION: Exam: CT Angiography Neck With Contrast Exam date and time: 07/25/2021 10:33 PM Age: 71 years old Clinical indication: Speech disturbance and weakness; Patient HX: Weakness and difficulty speaking/slurred speech TECHNIQUE: Imaging protocol: Computed tomography angiography of the neck with contrast. 3D rendering (Not supervised by radiologist): MIP and/or 3D reconstructed images were created by the technologist. Radiation optimization: All CT scans at this facility use at least one of these dose optimization techniques: automated exposure control; mA and/or kV adjustment per patient size (includes targeted exams where dose is matched to clinical indication); or iterative reconstruction. Contrast material: VISIPAQUE 320; Contrast volume: 95 ml; Contrast route: INTRAVENOUS (IV); COMPARISON: CT head wo con* [id number] 07/25/2021 9:57 PM RADIATION DOSE METRICS: Total DLP (mGy-cm): 2331.8 FINDINGS: Tubes, catheters and devices: There is a pacemaker in the right anterior chest wall. Right common carotid artery: No stenosis. No dissection or occlusion. Right internal carotid artery: No stenosis of the extracranial segment. No dissection or occlusion. Right external carotid artery: No occlusion or stenosis of the origin. Left common carotid artery: No stenosis. No dissection or occlusion. Left internal carotid artery: No stenosis of the extracranial segment. No dissection or occlusion. Left external carotid artery: No occlusion or stenosis of the origin. Right vertebral artery: The right vertebral artery is relatively hypoplastic. No superimposed stenosis. No dissection. Left vertebral artery: The left vertebral artery is dominant. No stenosis. No dissection. Soft tissues: Normal. No significant soft tissue swelling. Bones/joints: See Multilevel disc findings finding. Multilevel disc findings: There is multilevel cervical spondylosis and disc space narrowing most advanced at C5-C6 and C6-C7. No fracture. Esophagus: The esophagus is mildly dilated. CT/CT angio headneck* [id number] IMPRESSION: No intracranial large vessel stenosis or occlusion IMPRESSION: No carotid or vertebral artery stenosis. REFERENCES: NASCET CRITERIA. The degree of internal carotid artery stenosis is based on NASCET criteria. Normal is no stenosis. Mild is less than 50% stenosis. Moderate is 50-69% stenosis. Severe is 70% to 99% stenosis. Total occlusion is no detectable patent lumen.
[2021-07-25 22:41] LABS: Add Urine Microscopic? YES; Bilirubin Urine 1+ (Negative); Blood Urine 2+ (Negative); Glucose Urine UA Trace (Normal); Ketones Urine Negative (Negative); Leukocyte Esterase Urine 2+ (Negative); Nitrate Urine Positive (Negative); Protein Urine Trace (Negative); Urine Appearance Hazy (CLEAR); Urine Color Yellow (Yellow); Urobilinogen Urine 1 mg/dL (Negative); pH Urine 6 (5-7)
[2021-07-25 22:42] LABS: Add Urine Culture? Yes; Bacteria Urine 4+ /hpf; RBC Urine 0-4 /hpf (0-2); Squamous Epithelial Cell Urine 0-4 /hpf (0-5); WBC Urine >100 /hpf (0-5)
[2021-07-25 22:43] LABS: Amphetamines Screen Urine Negative (Negative); Barbiturates Screen Urine Negative (Negative); Benzodiazepines Screen Urine Negative (Negative); Cocaine Screen Urine Negative (Negative); Opiate Screen Urine Positive (Negative); PCP Screen Urine Negative (Negative); THC Screen Urine Negative (Negative)
[2021-07-25 22:45] LABS: Alanine Aminotransferase 10 U/L (0-33); Albumin Level 3.5 g/dL (3.5-5.2); Alkaline Phosphatase 85 IU/L (35-105); Anion Gap 14.8 (5-19); Aspartate Amino Transferase 10 U/L (0-32); Blood Urea Nitrogen 12 mg/dL (8-23); Carbon Dioxide 29 mmol/L (22-29); Chloride 99 mmol/L (98-107); Globulin 2.2 g/dL (1.3-4.6); Glucose 317 mg/dL (65-115); Osmolality Calculated 302 mOsm/kg (285-295); Sodium 140 mmol/L (136-145); Total Bilirubin 0.7 mg/dL (0.15-1.2); Total Protein 5.7 g/dL (6.6-8.7)
[2021-07-25 22:46] LABS: Troponin(5th) Baseline 59 ng/L (0-10)
[2021-07-25 22:48] LABS: Potassium 2.8 mmol/L (3.5-5.1)
[2021-07-25] MEDS: iodixanol 320 mg/mL 100mL Btl IV (22:54)
[2021-07-25] MEDS: potassium chloride ER 20 mEq Tablet 40 MEQ PO (23:04)
[2021-07-25] MEDS: cefTRIAXone 1,000 MG in sodium chloride 0.9% (plus) 50 ML 100 MG IV (23:04)
[2021-07-25] MEDS: potassium chloride premix 100 ML 25 MEQ IV (23:05)
[2021-07-25 23:59] VITALS: BP 140/55; PULSE 78; RESP 16; TEMP 36.6; O2SAT 98
[2021-07-26] VITALS (23 sets, daily range): BP systolic 120–156; BP diastolic 55–74; PULSE 73–90; RESP 16–21; TEMP 36.6–36.9; O2SAT 90–96; BMI 35.8
[2021-07-26 01:36] LABS: Troponin 5 2HR 51.72 ng/L (0-10)
[2021-07-26 01:42] LABS: Troponin 5 2HR Delta -7.28 ABS# (0-10)
--- NOTE | 2021-07-26 04:14 | ECG_ITS ---
[facility] Test Date: 2021-07-26 Pat Name: Wenyd Dockery Department: Room: 259 Gender: Female Social Science Analyst: : 1950 Requested By: Lucía Christina Order Number: [id number] Ilana MD: Ace Santizo M.D. Measurements Intervals [place] Rate: 76 P: 36 NV: 285 QRS: 229 QRSD: 174 T: 29 QT: 474 QTc: 535 Interpretive Statements ELECTRONIC VENTRICULAR PACEMAKER ABNORMAL RHYTHM ECG Compared to ECG 07/25/2021 22:04:43 No significant changes Electronically Signed On 07-26-2021 23:19:17 SERVOMECHANISM ASSEMBLER by Ace Santizo M.D. [id number]
[2021-07-26] MEDS: enoxaparin 40 mg/0.4 mL Syringe SUBCUT (05:23)
[2021-07-26 05:28] LABS: Troponin 5 6HR 56.05 ng/L (0-10); Troponin 5 6HR Delta -2.95 ng/L (0-12)
[2021-07-26 05:38] LABS: Thyroid Stimulating Hormone 1.21 uIU/mL (0.27-4.20)
[2021-07-26 06:32] LABS: Glucose Point of Care 210 mg/dL (70-110)
--- NOTE | 2021-07-26 06:41 | PC.NURSE ---
Shift Note Frequent safety and comfort rounds continue. Orders and/or nursing care completed as indicated. Patient monitored for response to intervention and treatment(s). Education provided includes need for taking off home clothing and putting on a gown.. Patient and/or merchandising representative took off shirt and put on gown but would not take off sweats. Will continue to monitor.
--- NOTE | 2021-07-26 08:42 | P.HP_ITS ---
Providers/Chief Complaint Admitting Physician: Alyssa Leonard MD Primary Care Provider: Acacia Welch, ADMINISTRATIVE SERVICES MANAGER Chief Complaint: Possible stroke History of Present Illness Wendy Dockery is a 71 year old female with a past medical history of A. fib, has a pacemaker in place, presented to the hospital today with her daughter due to concern for possible stroke. At around 7 PM this afternoon patient's daughter reports that she went into the bathroom and while walking back her leg suddenly gave way. She needed to be supported by 2 people. Even then she had a tough time following instructions to put 1 foot I had of the other and appeared confused and disoriented. Upon arrival at the ER her mentation was continuing to improve. She is currently back at her baseline at the time of my assessment. Per daughter patient has been having episodic confusion dating back at least to April 2021. She has been variously diagnosed with UTIs and pneumonias with transient improvement for a few days with a course of antibiotics with no consistent relief. In May of this year she developed COVID-19 pneumonia and has a chronic cough ever since. She also has a new oxygen requirement of 2 L/min since then, has not been noted to be hypoxic at any time at home. There are no current focal neuro deficits at this time. No fever at home. UA is positive today, pending urine cultures. CT head and a CTA of the head and neck was performed upon admission which was negative for any intracranial large vessel stenosis or occlusion. No carotid or vertebral artery stenosis was noted either. CT head showed chronic microvascular changes. Chest x-ray with small left pleural effusion with adjacent atelectasis versus pneumonia which is partially obscured with her pacemaker. Pleural effusion is noted to be also seen on CTA from June 15, 2021 at which time patient had Covid. Review of Systems General: Reports: 10 or more systems reviewed and unremarkable except in HPI and below Medications/Allergies Home Medications Medication Instructions Recorded Confirmed Last Taken Type aspirin 81 mg chewable tablet 81 mg PO DAILY 06/17/19 12/30/20 06/17/19 History atorvastatin 20 mg tablet 20 mg PO DAILY 06/17/19 12/30/20 06/17/19 History bupropion HCl 150 mg 24 hr tablet, 150 mg PO BEDTIME 06/17/19 12/30/20 06/17/19 History extended release carvedilol 25 mg tablet 25 mg PO BID 06/17/19 12/30/20 06/18/19 06:30 History cholecalciferol (vitamin D3) 10 5,000 unit PO DIRECTED 06/17/19 12/30/20 05/31/19 History mcg (400 unit) chewable tablet (Vitamin D3) famotidine 40 mg tablet 40 mg PO DAILY 06/17/19 12/30/20 06/04/19 History furosemide 20 mg tablet (Lasix) 20 mg PO DAILY 06/17/19 12/30/20 06/17/19 History levothyroxine 75 mcg tablet 75 mcg PO DAILY 06/17/19 12/30/20 06/18/19 History sertraline 100 mg tablet 100 mg PO DAILY 06/17/19 12/30/20 06/17/19 History cyclobenzaprine 10 mg tablet 10 mg PO TID PRN 06/18/19 12/30/20 06/17/19 History hydrocodone 7.5 mg-acetaminophen 1 tab PO Q6H PRN 06/18/19 12/30/20 06/17/19 History 325 mg tablet potassium chloride 8 mEq 16 meq PO BID 06/18/19 12/30/20 06/17/19 History tablet,extended release sacubitril 49 mg-valsartan 51 mg 1 tab PO BID 06/18/19 12/30/20 06/17/19 History tablet (Entresto) pen needle, diabetic 31 gauge x #100 ea 11/24/20 12/30/20 Unknown Rx 5/16 (BD Ultra-Fine Short Pen Needle) potassium chloride 40 mEq/15 mL 40 meq (15 mL) PO TID #473 ml 06/14/21 Unknown Rx oral liquid ondansetron HCl 4 mg tablet 4 mg PO Q6H PRN #20 tab 06/15/21 Unknown Rx (Zofran) insulin detemir U-100 100 unit/mL See Rx Instructions .ROUTE 07/14/21 Unknown Rx (3 mL) subcutaneous pen (Levemir .COMPLEX #15 ml FlexTouch U-100 Insulin) Allergies Allergy/AdvReac Type Severity Reaction Status Date / Time No Known Allergies Allergy Verified 06/15/21 11:15 PFSH Acute PFSH: Medical History Depression Diabetes mellitus Heart disease Hx of cardiac pacemaker Hypertension Hypothyroidism Migraine Myocardial infarction On anticoagulant therapy Renal insufficiency Sleep apnea Thyroid disease Surgical History Hx of cholecystectomy Hx of hysterectomy Family History Other Diabetes Heart disease Social History Smoking and tobacco status: never smoked Vitals/I&O/Wt Last Vital Signs Temp 98 F 07/26/21 05:12 Pulse 78 07/26/21 05:12 Resp 16 07/26/21 05:12 BP 140/55 07/26/21 05:12 Pulse Ox 96 07/26/21 04:10 07/25/21 07/26/21 07/26/21 22:59 06:59 14:59 Intake Total 250 / 250 100 / 100 Output Total 100 / 100 Balance 150 / 150 100 / 100 Weight last 48 hrs Weight 88.904 kg Weight 88.904 kg Physical Exam Narrative: GEN: Awake, alert and oriented, no acute distress CVS: S1S2 N RS: CTA B/L all areas Abd: Soft, nt/nd , bs+ DUDE RANCH MANAGER: no focal neuro deficits Data : 07/25/21 22:09 07/25/21 22:09 Other Labs: Radiology Impressions Chest X-Ray 07/25/21 21:56 IMPRESSION: Small left pleural effusion with adjacent atelectasis or pneumonia partly obscured by pacemaker. No significant change from prior x-ray Head CT 07/25/21 21:56 IMPRESSION: 1. There is chronic microvascular disease. 2. No acute intracranial lesion or injury ASSESSMENT: ASPECTS ([place] Stroke Program Early CT Score) is 10. Head/Neck CTA 07/25/21 22:33 IMPRESSION: No intracranial large vessel stenosis or occlusion IMPRESSION: No carotid or vertebral artery stenosis. REFERENCES: NASCET CRITERIA. The degree of internal carotid artery stenosis is based on NASCET criteria. Normal is no stenosis. Mild is less than 50% stenosis. Moderate is 50-69% stenosis. Severe is 70% to 99% stenosis. Total occlusion is no detectable patent lumen. Laboratory Results WBC 10.0 10^3/uL (4.0-10.0) 07/25/21 22:09 RBC 3.97 10^6/uL (4.1-5.3) L 07/25/21 22:09 Hgb 11.5 g/dL (11.5-15.3) 07/25/21 22:09 Hct 35.6 % (37.0-47.0) L 07/25/21 22:09 MCV 89.7 fl (81-99) 07/25/21 22:09 MCH 29.0 pg (28.0-34.0) 07/25/21 22:09 MCHC 32.3 g/dL (30.0-36.0) 07/25/21: RDW 14.4 % (12.1-15.1) 07/25/21 22: Plt Count 235 10^3/cmm (130-400) 07/25/21 22: MPV 9.8 fL (7.4-10.4) 07/25/21 22:09 Neut % (Auto) 81.7 % 07/25/21 22:09 Lymph % (Auto) 11.0 % 07/25/21 22:09 [place] % (Auto) 4.2 % 07/25/21 22:09 Eos % (Auto) 2.0 % 07/25/21:09 Baso % (Auto) 0.3 % 07/25/21 22:09 Neut # (Auto) 8.15 10^3/uL (1.8-7.7) H 07/25/21 22:09 Lymph # (Auto) 1.1 10^3/uL (0.8-4.8) 07/25/21 22:09 [place] # (Auto) 0.4 10^3/uL (0.2-0.9) 07/25/21 22:09 Eos # (Auto) 0.2 10^3/uL (0.0-0.8) 07/25/21 22:09 Baso # (Auto) 0.0 10^3/uL (0.0-0.1) 07/25/21 22:09 Nucleated RBC % (auto) 0 % 07/25/21 22: Nucleated RBCs # 0.0 /100WBC 07/25/21 22:09 PT 14.10 SECONDS (12.1-14.9) 07/25/21 22:09 INR 1.06 (0.8-1.2) 07/25/21 22:09 APTT 30.0 SECONDS (23.9-36.7) 07/25/21 22:09 Sodium 140 mmol/L (136-145) 07/25/21 22:09 Potassium 2.8 mmol/L (3.5-5.1) L* 07/25/21 22:09 Chloride 99 mmol/L (98-107) 07/25/21 22:09 Carbon Dioxide 29 mmol/L (22-29) 07/25/21 22:09 Anion Gap 14.8 (5-19) 07/25/21 22:09 BUN 12 mg/dL (8-23) 07/25/21 22:09 Creatinine 1.1 mg/dL (0.5-0.9) H 07/25/21 22:09 GFR Calculation Not Reportable 07/25/21 22:09 Glucose 317 mg/dL (65-115) H 07/25/21 22:09 POC Glucose 210 mg/dL (70-110) H 07/26/21 06:03 Calculated Osmolality 302 mOsm/kg (285-295) H 07/25/21 22:09 Calcium 9.0 mg/dL (8.5-10.5) 07/25/21 22:09 Total Bilirubin 0.7 mg/dL (0.15-1.2) 07/25/21 22:09 AST 10 U/L (0-32) 07/25/21 22:09 ALT 10 U/L (0-33) 07/25/21 22:09 Alkaline Phosphatase 85 IU/L (35-105) 07/25/21 22:09 Troponin T Baseline 59 ng/L (0-10) H 07/25/21 22:09 Troponin T 120 Minute 51.72 ng/L (0-10) H 07/26/21 01:11 Delta Troponin T -7.28 ABS# (0-10) L 07/26/21 01:11 Troponin T Hi Sens 6Hr 56.05 ng/L (0-10) H 07/26/21 04:20 Troponin T Hi Sens 6Hr Delta -2.95 ng/L (0-12) L 07/26/21 04:20 Total Protein 5.7 g/dL (6.6-8.7) L 07/25/21 22:09 Albumin 3.5 g/dL (3.5-5.2) 07/25/21 22:09 Globulin 2.2 g/dL (1.3-4.6) 07/25/21 22:09 TSH 1.21 uIU/mL (0.27-4.20) 07/26/21 04:20 Urine Color Yellow (Yellow) 07/25/21 22: Urine Appearance Hazy (CLEAR) A 07/25/21: Urine pH 6 (5-7) 07/25/21: Ur Specific [place] 1.020 (1.005-1.030) 07/25/21: Urine Protein Trace (Negative) 07/25/21: Urine Glucose (UA) Trace (Normal) H 07/25/21 22: Urine Ketones Negative (Negative) 07/25/21: Urine Blood 2+ (Negative) H 07/25/21: Urine Nitrate Positive (Negative) H 07/25/21: Urine Bilirubin 1+ (Negative) H 07/25/21: Urine Urobilinogen 1 mg/dL (Negative) H 07/25/21: Ur Leukocyte Esterase 2+ (Negative) H 07/25/21 22: Urine RBC 0-4 /hpf (0-2) H 07/25/21 22: Urine WBC >100 /hpf (0-5) H 07/25/21 22: Ur Squamous Epith Cells 0-4 /hpf (0-5) H 07/25/21 22: Amorphous Sediment Not Reportable 07/25/21: Urine Bacteria 4+ /hpf (NONE) H 07/25/21: Urine Opiates Screen Positive ng/mL (Negative) H 07/25/21: Ur Barbiturates Screen Negative ng/mL (Negative) 07/25/21: Ur Phencyclidine Scrn Negative ng/mL (Negative) 07/25/21: Ur Amphetamines Screen Negative ng/mL (Negative) 07/25/21: U Benzodiazepines Scrn Negative ng/mL (Negative) 03/08/22 22:29 Urine Cocaine Screen Negative ng/mL (Negative) 07/25/21 22:29 U Marijuana (THC) Screen Negative ng/mL (Negative) 07/25/21 22:29 A&P Assessment and plan (1) Acute cystitis: Status: Acute (2) Altered mental status: Status: Acute (3) TIA (transient ischemic attack): Status: Acute (4) Hypokalemia: Status: Acute Plan Presenitng today with transient weakness and confusion Differentials include TIA vs syncopal episode CT head and CTA negative Recurrent episodes of confusion since Apr 2021, check MRI brain to evaluate for recurent CVAs given h/o A fib Pacemaker interrogation for any arrhythmia correlates at time of event check TSH , continue levothyroxine hypokalemia, replete po and iv, recheck labs at 11 AM UTI with + UA, pending urine cx, empiric CTX in the interim h/o combined chronic CHF: continue carvedilol, entersto Chronic cough may represent reactive airway disease pots COVID 19 infection, recommend outpatient follow up with PFTs In the interim trial of albuterol nebulization Attestations Medical Necessity Statement*: >2midnight anticipated for evaluation of TIA, iv abx for [place] Coding Level of Care Code 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
[2021-07-26] MEDS: sertraline 100 mg Tablet PO (09:15)
[2021-07-26] MEDS: aspirin 81 mg Chew Tablet PO (09:15)
[2021-07-26] MEDS: levothyroxine 75 mcg Tablet PO (09:16)
[2021-07-26] MEDS: pantoprazole DR 40 mg Tablet PO (09:16)
[2021-07-26] MEDS: carvedilol 25 mg Tablet PO ×2 (09:17→18:46)
[2021-07-26] MEDS: atorvastatin 40 mg Tablet 20 MG PO (09:17)
[2021-07-26] MEDS: benzonatate 100 mg Capsule PO ×3 (09:18→20:53)
[2021-07-26] MEDS: insulin lispro 100 unit/1 mL SUBCUT ×4 (09:19→21:44)
[2021-07-26] MEDS: sacubitril/valsartan 24-26 mg Tablet 2 EACH PO ×2 (09:56→18:46)
--- NOTE | 2021-07-26 10:18 | PC.CHAP ---
Pastoral Care Encounter/Spiritual Assessment Type of Contact [] Declined sexual abuse counsellor visit [] Patient/Family/Request visit [] Outpatient visit [] Follow-up visit [] Physician referral [] Code/Alert [x] Routine visit [] Staff referral [] Actively dying [] Patient sleeping [] Family support [] [] Out of room [] Palliative care [] [x] Receiving care in room [] Pre-surgical visit [] Trauma [] Long length of stay [] ICU visit [] Other: Relational/Emotional Strength [] Patient feels connected with others/family/visitors/staff [] Distress [] Loneliness/isolation [] Abandonment Spirituality of Patient [] Person of Ani [] Attends Congregational of their Ani [] Believes in Prayer [] Reads Bible or Sikhism materials [] There are Spiritual issues to be addressed Slunk Skin Curer Interventions [] Prayer [] Active listening [] Non-anxious presence [] Spiritual/emotional support [] Crisis/trauma care [] Spiritual counseling [] Bereavement support [] Provided bereavement packet [] Provided Bible/devotional materials [] Provided toy/stuffed animal, coloring book to patient or family member [] Provided Communion [] Anointing/[place] [] Salvation [] Completed spiritual assessment [] Other: Impact on Illness or Injury [] Angry [] Fearful [] Anxious [] Often cries [] Exhaustion [] Unable to work [] Unable to attend gnosticism [] Unable to walk/stand [] Unable to read [] Unable to drive [] Unable to eat/drink [] Unable to sleep [] Unable to be with family [] Patient intubated [] Other: Summary Time spent with patient
[2021-07-26 11:22] LABS: Alanine Aminotransferase 10 U/L (0-33); Albumin Level 3.4 g/dL (3.5-5.2); Alkaline Phosphatase 85 IU/L (35-105); Anion Gap 13.3 (5-19); Aspartate Amino Transferase 10 U/L (0-32); Blood Urea Nitrogen 10 mg/dL (8-23); Carbon Dioxide 30 mmol/L (22-29); Chloride 101 mmol/L (98-107); Globulin 2.9 g/dL (1.3-4.6); Glucose 235 mg/dL (65-115); Osmolality Calculated 299 mOsm/kg (285-295); Potassium 3.3 mmol/L (3.5-5.1); Sodium 141 mmol/L (136-145); Total Bilirubin 0.7 mg/dL (0.15-1.2); Total Protein 6.3 g/dL (6.6-8.7)
[2021-07-26 11:57] LABS: Iron 80 ug/dL (37-145); Percent Saturation 39.2 % (20-50); Total Iron Binding Capacity 204 mcg/dl; Unsaturated Iron Binding 124 ug/dL (112-347)
[2021-07-26 12:10] LABS: Vitamin B12 282 pg/mL (232-1245)
[2021-07-26 12:42] LABS: Glucose Point of Care 168 mg/dL (70-110)
[2021-07-26] MEDS: ipratropium-albuterol 3 mL Neb INHALATION ×2 (14:20→20:34)
[2021-07-26 17:25] LABS: Glucose Point of Care 188 mg/dL (70-110)
[2021-07-26] MEDS: potassium chloride ER 20 mEq Tablet 40 MEQ PO (18:46)
[2021-07-26] MEDS: budesonide 0.5 mg/2 mL Neb INHALATION (20:34)
[2021-07-26] MEDS: buPROPion XL (24 HR) 150 mg Tablet PO (20:53)
[2021-07-26 20:58] LABS: Glucose Point of Care 141 mg/dL (70-110)
[2021-07-26] MEDS: cefTRIAXone 1,000 MG in sodium chloride 0.9% (plus) 50 ML 100 MG IV (22:57)
--- NOTE | 2021-07-26 23:11 | PC.NURSE ---
Patient up to door in her room stating that she needs to leave. States I need to leave because I don't feel good . Re-oriented patient that she is in the hospital and its because she didn't feel good. Tried to phone daughter and go voicemail. Patient agreed to get back in bed and receive antibiotic. Will continue to monitor.
[2021-07-27] VITALS (17 sets, daily range): BP systolic 107–150; BP diastolic 57–80; PULSE 72–85; RESP 13–24; TEMP 36.5–37.2; O2SAT 93–98
[2021-07-27] MEDS: ipratropium-albuterol 3 mL Neb INHALATION ×4 (02:40→20:23)
[2021-07-27] MEDS: enoxaparin 40 mg/0.4 mL Syringe SUBCUT (04:47)
[2021-07-27 05:57] LABS: Basophils % 0.2 %; Eosinophils # 0.1 10^3/uL (0.0-0.8); Eosinophils % 0.8 %; Hematocrit 36.8 % (37.0-47.0); Hemoglobin 11.3 g/dL (11.5-15.3); Lymphocytes # 0.3 10^3/uL (0.8-4.8); Lymphocytes % 3.7 %; Mean Corpuscular HGB Conc 30.7 g/dL (30.0-36.0); Mean Corpuscular Volume 91.3 fl (81-99); Monocytes # 0.2 10^3/uL (0.2-0.9); Monocytes % 2.5 %; Neutrophils # 8.48 10^3/uL (1.8-7.7); Neutrophils % 92.4 %; Nucleated Red Blood Cells % 0 %; Platelet Count 218 10^3/cmm (130-400); Red Blood Count 4.03 10^6/uL (4.1-5.3); Red Cell Distribution Width 14.6 % (12.1-15.1); White Blood Count 9.2 10^3/uL (4.0-10.0)
[2021-07-27 06:16] LABS: Alanine Aminotransferase 9 U/L (0-33); Albumin Level 3.3 g/dL (3.5-5.2); Alkaline Phosphatase 97 IU/L (35-105); Anion Gap 13.7 (5-19); Aspartate Amino Transferase 12 U/L (0-32); Blood Urea Nitrogen 13 mg/dL (8-23); Calcium 9.3 mg/dL (8.5-10.5); Carbon Dioxide 27 mmol/L (22-29); Chloride 103 mmol/L (98-107); Chol HDL Ratio 2.19 mg/dL (0.0-4.40); Cholesterol 138 mg/dL (0-200); Globulin 3.5 g/dL (1.3-4.6); Glucose 167 mg/dL (65-115); HDL Cholesterol 63 mg/dL (60-100); LDL Cholesterol Calculated 50 mg/dL (50-129); Osmolality Calculated 294 mOsm/kg (285-295); Potassium 3.7 mmol/L (3.5-5.1); Sodium 140 mmol/L (136-145); Total Bilirubin 0.9 mg/dL (0.15-1.2); Total Protein 6.8 g/dL (6.6-8.7); Triglycerides 127 mg/dL (0-150); VLDL Cholestrol Calculation 25 mg/dL (0-30)
[2021-07-27 06:20] LABS: Glucose Point of Care 156 mg/dL (70-110)
[2021-07-27 06:22] LABS: Estmated Average Glucose 203; Hemoglobin A1C 8.7 % (4.0-6.0)
--- NOTE | 2021-07-27 07:30 | PC.NURSE ---
Shift Note Frequent safety and comfort rounds continue. Orders and/or nursing care completed as indicated. Patient monitored for response to intervention and treatment(s). Education provided includes staying in bed in her room and not leaving floor.. Patient and/or patient care representative states understanding but is confused. Will continue to monitor.
[2021-07-27] MEDS: budesonide 0.5 mg/2 mL Neb INHALATION ×2 (08:03→20:23)
[2021-07-27] MEDS: carvedilol 25 mg Tablet PO ×2 (09:33→17:57)
[2021-07-27] MEDS: atorvastatin 40 mg Tablet 20 MG PO (09:34)
[2021-07-27] MEDS: levothyroxine 75 mcg Tablet PO (09:34)
[2021-07-27] MEDS: potassium chloride ER 20 mEq Tablet 40 MEQ PO ×2 (09:34→17:57)
[2021-07-27] MEDS: sertraline 100 mg Tablet PO (09:34)
[2021-07-27] MEDS: pantoprazole DR 40 mg Tablet PO (09:34)
[2021-07-27] MEDS: benzonatate 100 mg Capsule PO ×3 (09:35→21:10)
[2021-07-27] MEDS: sacubitril/valsartan 24-26 mg Tablet 2 EACH PO ×2 (09:35→17:57)
[2021-07-27] MEDS: aspirin 81 mg Chew Tablet PO (09:42)
[2021-07-27] MEDS: insulin lispro 100 unit/1 mL SUBCUT ×3 (09:42→21:12)
--- NOTE | 2021-07-27 10:32 | PC.CHAP ---
Pastoral Care Encounter/Spiritual Assessment Type of Contact [] Declined in store marketing associate visit [] Patient/Family/Request visit [] Outpatient visit [] Follow-up visit [] Physician referral [] Code/Alert [x] Routine visit [] Staff referral [] Actively dying [] Patient sleeping [] Family support [] [] Out of room [] Palliative care [x] [x] Receiving care in room [] Pre-surgical visit [] Trauma [x] Long length of stay [] ICU visit [] Other: Relational/Emotional Strength [] Patient feels connected with others/family/visitors/staff [x] Distress [] Loneliness/isolation [] Abandonment Spirituality of Patient [x] Person of Ani [] Attends Cheondoism of their Ani [x] Believes in Prayer [] Reads Bible or Anglican materials [] There are Spiritual issues to be addressed Model Maker Interventions [x] Prayer [x] Active listening [x] Non-anxious presence [x] Spiritual/emotional support [] Crisis/trauma care [x] Spiritual counseling [] Bereavement support [] Provided bereavement packet [] Provided Bible/devotional materials [] Provided toy/stuffed animal, coloring book to patient or family member [] Provided Communion [] Anointing/[place] [] Salvation [x] Completed spiritual assessment [] Other: Impact on Illness or Injury [] Angry [x] Fearful [] Anxious [] Often cries [] Exhaustion [x] Unable to work [] Unable to attend episcopal [] Unable to walk/stand [] Unable to read [] Unable to drive [] Unable to eat/drink [] Unable to sleep [] Unable to be with family [] Patient intubated [] Other: Summary end of life, + breezy care of life Time spent with patient 10 mins
[2021-07-27 10:48] LABS: Glucose Point of Care 215 mg/dL (70-110)
[2021-07-27 10:48] LABS: Glucose Point of Care 170 mg/dL (70-110)
[2021-07-27 12:15] LABS: Glucose Point of Care 233 mg/dL (70-110)
--- NOTE | 2021-07-27 12:31 | PM.PN ---
Subjective Subjective: No complaints overnight. Patient denies any active complaints. Complaining of occasional cough. Examination lying comfortably in bed. Having episodes of coughing bout which was relieved by drinking water. Denies any nausea, vomiting, headache. As per the nurse patient did have episode of confusion when she was wandering in the huff going into other patient's room. Patient has remained hemodynamically stable and afebrile. Vitals/I&O/Wt Last Vital Signs Temp 98.0 F 07/27/21 11:19 Pulse 73 07/27/21 11:19 Resp 18 07/27/21 11:19 BP 107/57 07/27/21 11:19 Pulse Ox 93 07/27/21 11:19 07/26/21 07/27/21 07/27/21 22:59 06:59 14:59 Intake Total 1000 / 1460 1000 / 2460 120 / 120 Output Total 100 / 100 100 / 200 Balance 900 / 1360 900 / 2260 120 / 120 Weight last 48 hrs Weight 88.904 kg Weight 88.904 kg Physical Exam Narrative: General: No acute distress, AO x3, mild forgetful occasional confusion HEENT: PERRLA, pupils bilaterally equal and reactive Chest: Bilateral bronchial breath sounds, occasional rhonchi all over the lung james equal good air entry bilaterally CVS: S1-S2 regular, no murmurs, no tachycardia, no gallops, no rubs Abdomen: Soft, nontender, no organomegaly, bowel sounds present Neuro: No focal deficits, no facial deformity, AO x3, power 5/5 in all limbs Data : 07/27/21 05:26 07/27/21 05:26 Micro: Microbiology 07/26/21 11:09 Blood Culture - Preliminary Blood NEGATIVE TO DATE 07/26/21 11:07 Blood Culture - Preliminary Blood NEGATIVE TO DATE 07/25/21 22:29 Urine Culture - Preliminary Urine,Clean Catch Gram Negative Rods A&P Assessment and plan (1) Altered mental status: Status: Acute (2) Acute cystitis: Status: Acute (3) TIA (transient ischemic attack): Status: Acute (4) Reactive airway disease: Status: Acute (5) Renal insufficiency: Status: Acute (6) Hypothyroidism: Status: Acute (7) Hypokalemia: Status: Acute (8) Diabetes mellitus: Status: Acute (9) Hypertension: Status: Acute Plan Altered mental status: Most likely a combination of worsening of baseline dementia secondary to metabolic encephalopathy from acute cystitis along with possible TIA. Possible TIA as per clinical picture. CT head and CTA head and neck results appreciated. Unfortunately MRI cannot be done because of pacemaker implantation. A1c 8.7, lipid panel appreciated. Continue with home dose of aspirin, statin, beta-hillary. Pacemaker interrogation awaited. For cystitis: UA positive. Continue with IV ceftriaxone. Follow-up urine culture. Will de-escalate antibiotics as per culture results. Urine drug screen admission positive for opiates. Drug screen otherwise negative. Reactive airway disease: Most likely secondary to recent COVID-19. Continue with Tessalon Perles, DuoNeb's, budesonide. We will need to follow-up with pulmonology as an outpatient and possible pulmonary function test. Acute kidney injury: Resolved. Most likely present on admission secondary to dehydration from poor oral intake along with home dose of diuretic. Continue to hold off on fluids Lasix. History of combined congestive heart failure: Currently well compensated. Last echocardiogram from 2019 shows global LV hypokinesia with septal bounce, EF 50%, grade 2 diastolic dysfunction. For now continue with home dose of Entresto, beta-hillary. Continue to hold off on Lasix for now. Most likely patient can go on Lasix as needed basis. Continue other chronic medications including sertraline, bupropion, [place], levothyroxine. Full code. Cardiac diet. Lovenox for DVT prophylaxis. Protonix for PUD prophylaxis Attestations Medical Necessity Statement*: Further hospitalization for further management of altered mental status most likely secondary to metabolic encephalopathy from acute cystitis, possible TIA, reactive airway disease Time Spent in Patient Care: Greater than 35 minutes Coding Level of Care Code Acute Museum Host/Hostess for [facility] Fwd Diagnoses Reactive airway disease J45.909 Altered mental status R41.82 Acute cystitis N30.00 TIA (transient ischemic attack) G45.9 Renal insufficiency N28.9 Hypothyroidism E03.9 Hypokalemia E87.6 Diabetes mellitus E11.9 Hypertension I10
[2021-07-27 17:55] LABS: Glucose Point of Care 110 mg/dL (70-110)
[2021-07-27 21:07] LABS: Glucose Point of Care 218 mg/dL (70-110)
[2021-07-27] MEDS: buPROPion XL (24 HR) 150 mg Tablet PO (21:10)
[2021-07-27] MEDS: cefTRIAXone 1,000 MG in sodium chloride 0.9% (plus) 50 ML 100 MG IV (23:41)
[2021-07-28] VITALS: BP 131/66; PULSE 71; RESP 20; TEMP 36.4; O2SAT 93
[2021-07-28 04:00] VITALS: BP 137/85; PULSE 68; RESP 28; TEMP 35.7; O2SAT 97
[2021-07-28] MEDS: enoxaparin 40 mg/0.4 mL Syringe SUBCUT (04:22)
[2021-07-28 06:42] LABS: Glucose Point of Care 75 mg/dL (70-110)
[2021-07-28 08:00] VITALS: BP 120/71; PULSE 72; RESP 18; TEMP 36.7; O2SAT 92
[2021-07-28] MEDS: atorvastatin 40 mg Tablet 20 MG PO (08:25)
[2021-07-28] MEDS: aspirin 81 mg Chew Tablet PO (08:25)
[2021-07-28] MEDS: sertraline 100 mg Tablet PO (08:25)
[2021-07-28] MEDS: benzonatate 100 mg Capsule PO (08:26)
[2021-07-28] MEDS: pantoprazole DR 40 mg Tablet PO (08:26)
[2021-07-28] MEDS: ipratropium-albuterol 3 mL Neb INHALATION (08:33)
[2021-07-28] MEDS: budesonide 0.5 mg/2 mL Neb INHALATION (08:33)
[2021-07-28] MEDS: levothyroxine 75 mcg Tablet PO (08:33)
[2021-07-28] MEDS: carvedilol 25 mg Tablet PO (08:33)
[2021-07-28] MEDS: potassium chloride ER 20 mEq Tablet 40 MEQ PO (08:33)
[2021-07-28] MEDS: sacubitril/valsartan 24-26 mg Tablet 2 EACH PO (08:34)
[2021-07-28 08:41] VITALS: PULSE 71; RESP 20; O2SAT 96
--- NOTE | 2021-07-28 10:17 | PM.DCS ---
Discharge Providers Date of Admission: 07/26/21 01:04 Date of Discharge: July 28, 2021 Attending Provider at Admission: Alyssa Leonard MD Attending Provider at Discharge: Bishop Llamas MD Primary Care Provider: KEITH More Diagnoses at Discharge Discharge Diagnosis (1) Altered mental status: Status: Acute (2) Acute cystitis: Status: Acute (3) TIA (transient ischemic attack): Status: Acute (4) Reactive airway disease: Status: Acute (5) Renal insufficiency: Status: Acute (6) Hypothyroidism: Status: Acute (7) Hypokalemia: Status: Acute (8) Diabetes mellitus: Status: Acute (9) Hypertension: Status: Acute Reason for Visit Reason for Visit: Possible stroke Hospital Course Hospital Course Wendy Dockery is a 71 year old female with a past medical history of A. fib, has a pacemaker in place, presented to the hospital today with her daughter due to concern for possible stroke.? At around 7 PM this afternoon patient's daughter reports that she went into the bathroom and while walking back her leg suddenly gave way.? She needed to be supported by 2 people.? Even then she had a tough time following instructions to put 1 foot I had of the other and appeared confused and disoriented.? Upon arrival at the ER her mentation was continuing to improve.? She is currently back at her baseline at the time of my assessment.? Per daughter patient has been having episodic confusion dating back at least to April 2021.? She has been variously diagnosed with UTIs and pneumonias with transient improvement for a few days with a course of antibiotics with no consistent relief.? In May of this year she developed COVID-19 pneumonia and has a chronic cough ever since.? She also has a new oxygen requirement of 2 L/min since then, has not been noted to be hypoxic at any time at home.? There are no current focal neuro deficits at this time.? No fever at home.? UA is positive today, pending urine cultures. CT head and a CTA of the head and neck was performed upon admission which was negative for any intracranial large vessel stenosis or occlusion.? No carotid or vertebral artery stenosis was noted either.? CT head showed chronic microvascular changes.? Chest x-ray with small left pleural effusion with adjacent atelectasis versus pneumonia which is partially obscured with her pacemaker.? Pleural effusion is noted to be also seen on CTA from June 15, 2021 at which time patient had Covid. Patient will to the hospital further evaluation and management of possible altered mental status most likely secondary to TIA along with metabolic encephalopathy secondary to UTI. She was started on broad-spectrum antibiotics. CT head and CTA head and neck were negative. MRI could not be done because of post pacemaker implantation status. Placement interrogation was done and ruled out any arrhythmia. On admission she was found to be mildly hypokalemic for which she was repleted. Her hospital stay was otherwise unremarkable. Patient is back to her baseline mentation. She has been discharged on oral Levaquin for 3 more days to finish a course of antibiotics for UTI. On admission she was also found to be slightly dehydrated and EDI for which her home dose of diuretic was withheld. She is advised to take diuretics only on as needed basis for swelling or for increasing body weight of 5 pounds in a week. Physical Exam Narrative: General: No acute distress, AO x3, mild forgetful occasional confusion HEENT: PERRLA, pupils bilaterally equal and reactive Chest: Bilateral bronchial breath sounds, occasional rhonchi all over the lung james equal good air entry bilaterally CVS: S1-S2 regular, no murmurs, no tachycardia, no gallops, no rubs Abdomen: Soft, nontender, no organomegaly, bowel sounds present Neuro: No focal deficits, no facial deformity, AO x3, power 5/5 in all limbs Discharge Data Studies Completed and Pending Completed Studies During Hospitalization Category Date Time Status CT head wo con* [id number] Stat Cat Scan 07/25/21 21:56 Completed CTA head neck [CT angio headneck* [id number]] Urgent Cat Scan 07/25/21 22:33 Completed XR chest 1V portable [id number] Stat Exams 07/25/21 21:56 Completed Pending at discharge Category Date Time Status Blood Culture Stat Lab 07/26/21 11:09 Results Urine Culture Stat Lab 07/25/21 22:29 Results Radiology Impressions Chest X-Ray 07/25/21 21:56 IMPRESSION: Small left pleural effusion with adjacent atelectasis or pneumonia partly obscured by pacemaker. No significant change from prior x-ray. Head CT 07/25/21 21:56 IMPRESSION: 1. There is chronic microvascular disease. 2. No acute intracranial lesion or injury ASSESSMENT: ASPECTS ([place] Stroke Program Early CT Score) is 10. Head/Neck CTA 07/25/21 22:33 IMPRESSION: No intracranial large vessel stenosis or occlusion IMPRESSION: No carotid or vertebral artery stenosis. REFERENCES: NASCET CRITERIA. The degree of internal carotid artery stenosis is based on NASCET criteria. Normal is no stenosis. Mild is less than 50% stenosis. Moderate is 50-69% stenosis. Severe is 70% to 99% stenosis. Total occlusion is no detectable patent lumen. Laboratory Results WBC 9.2 10^3/uL (4.0-10.0) 07/27/21 05:26 RBC 4.03 10^6/uL (4.1-5.3) L 07/27/21 05:26 Hgb 11.3 g/dL (11.5-15.3) L 07/27/21 05:26 Hct 36.8 % (37.0-47.0) L 07/27/21 05:26 MCV 91.3 fl (81-99) 07/27/21 05:26 MCH 28.0 pg (28.0-34.0) 07/27/21 05:26 MCHC 30.7 g/dL (30.0-36.0) 07/27/21 05:26 RDW 14.6 % (12.1-15.1) 07/27/21 05:26 Plt Count 218 10^3/cmm (130-400) 07/27/21 05:26 MPV 10.0 fL (7.4-10.4) 07/27/21 05:26 Neut % (Auto) 92.4 % 07/27/21 05:26 Lymph % (Auto) 3.7 % 07/27/21 05:26 Haines % (Auto) 2.5 % 07/27/21 05:26 Eos % (Auto) 0.8 % 07/27/21 05:26 Baso % (Auto) 0.2 % 07/27/21 05:26 Neut # (Auto) 8.48 10^3/uL (1.8-7.7) H 07/27/21 05:26 Lymph # (Auto) 0.3 10^3/uL (0.8-4.8) L 07/27/21 05:26 Haines # (Auto) 0.2 10^3/uL (0.2-0.9) 07/27/21 05:26 Eos # (Auto) 0.1 10^3/uL (0.0-0.8) 07/27/21 05:26 Baso # (Auto) 0.0 10^3/uL (0.0-0.1) 07/27/21 05:26 Nucleated RBC % (auto) 0 % 07/27/21 05:26 Nucleated RBCs # 0.0 /100WBC 07/27/21 05:26 PT 14.10 SECONDS (12.1-14.9) 07/25/21 22:09 INR 1.06 (0.8-1.2) 07/25/21 22:09 APTT 30.0 SECONDS (23.9-36.7) 07/25/21 22:09 Sodium 140 mmol/L (136-145) 07/27/21 05:26 Potassium 3.7 mmol/L (3.5-5.1) 07/27/21 05:26 Chloride 103 mmol/L (98-107) 07/27/21 05:26 Carbon Dioxide 27 mmol/L (22-29) 07/27/21 05:26 Anion Gap 13.7 (5-19) 07/27/21 05:26 BUN 13 mg/dL (8-23) 07/27/21 05:26 Creatinine 1.0 mg/dL (0.5-0.9) H 07/27/21 05:26 GFR Calculation Not Reportable 07/27/21 05:26 Glucose 167 mg/dL (65-115) H 07/27/21 05:26 POC Glucose 75 mg/dL (70-110) 07/28/21 06:25 Estimat Average Glucose 203 07/27/21 05:26 Hemoglobin A1c 8.7 % (4.0-6.0) H 07/27/21 05:26 Calculated Osmolality 294 mOsm/kg (285-295) 07/27/21 05:26 Calcium 9.3 mg/dL (8.5-10.5) 07/27/21 05:26 Iron 80 ug/dL (37-145) 07/26/21 10:57 TIBC 204 mcg/dl 07/26/21 10:57 % Saturation 39.2 % (20-50) 07/26/21 10:57 Unsat Iron Binding 124 ug/dL (112-347) 07/26/21 10:57 Total Bilirubin 0.9 mg/dL (0.15-1.2) 07/27/21 05:26 AST 12 U/L (0-32) 07/27/21 05:26 ALT 9 U/L (0-33) 07/27/21 05:26 Alkaline Phosphatase 97 IU/L (35-105) 07/27/21 05:26 Troponin T Baseline 59 ng/L (0-10) H 07/25/21 22:09 Troponin T 120 Minute 51.72 ng/L (0-10) H 07/26/21 01:11 Delta Troponin T -7.28 ABS# (0-10) L 07/26/21 01:11 Troponin T Hi Sens 6Hr 56.05 ng/L (0-10) H 07/26/21 04:20 Troponin T Hi Sens 6Hr Delta -2.95 ng/L (0-12) L 07/26/21 04:20 Total Protein 6.8 g/dL (6.6-8.7) 07/27/21 05:26 Albumin 3.3 g/dL (3.5-5.2) L 07/27/21 05:26 Globulin 3.5 g/dL (1.3-4.6) 07/27/21 05:26 Triglycerides 127 mg/dL (0-150) 07/27/21 05:26 Cholesterol 138 mg/dL (0-200) 07/27/21 05:26 LDL Cholesterol, Calc 50 mg/dL (50-129) 07/27/21 05:26 Total VLDL Cholesterol 25 mg/dL (0-30) 07/27/21 05:26 HDL Cholesterol 63 mg/dL (60-100) 07/27/21 05:26 Cholesterol/HDL Ratio 2.19 mg/dL (0.0-4.40) 07/27/21 05:26 Vitamin B12 282 pg/mL (232-1245) 07/26/21 10:57 Folate 6.0 ng/mL (4.8-37.3) 07/26/21 11:09 TSH 1.21 uIU/mL (0.27-4.20) 07/26/21 04:20 Urine Color Yellow (Yellow) 07/25/21 22: Urine Appearance Hazy (CLEAR) A 07/25/21 22: Urine pH 6 (5-7) 07/25/21 22: Ur Specific [place] 1.020 (1.005-1.030) 07/25/21 22:29 Urine Protein Trace (Negative) 07/25/21 22: Urine Glucose (UA) Trace (Normal) H 07/25/21 22: Urine Ketones Negative (Negative) 07/25/21 22: Urine Blood 2+ (Negative) H 07/25/21 22: Urine Nitrate Positive (Negative) H 07/25/21: Urine Bilirubin 1+ (Negative) H 07/25/21: Urine Urobilinogen 1 mg/dL (Negative) H 07/25/21 22: Ur Leukocyte Esterase 2+ (Negative) H 07/25/21 22: Urine RBC 0-4 /hpf (0-2) H 07/25/21 22: Urine WBC >100 /hpf (0-5) H 07/25/21 22: Ur Squamous Epith Cells 0-4 /hpf (0-5) H 07/25/21 22: Amorphous Sediment Not Reportable 07/25/21 22: Urine Bacteria 4+ /hpf (NONE) H 07/25/21 22:29 Urine Opiates Screen Positive ng/mL (Negative) H 07/25/21 22:29 Ur Barbiturates Screen Negative ng/mL (Negative) 07/25/21 22: Ur Phencyclidine Scrn Negative ng/mL (Negative) 07/25/21 22: Ur Amphetamines Screen Negative ng/mL (Negative) 07/25/21 22:29 U Benzodiazepines Scrn Negative ng/mL (Negative) 07/25/21 22: Urine Cocaine Screen Negative ng/mL (Negative) 07/25/21 22: U Marijuana (THC) Screen Negative ng/mL (Negative) 07/25/21 22: Vitals Last Vital Signs Temp 98.0 F 07/28/21 08:00 Pulse 71 07/28/21 08:41 Resp 20 H 07/28/21 08:41 BP 120/71 07/28/21 08:00 Pulse Ox 96 07/28/21 08:41 Discharge Plan Discharge Patient Disposition: Home Condition: Stable Prescriptions: New benzonatate 100 mg Capsule 100 mg PO TID PRN (Reason: cough) Qty: 10 0RF Advair Diskus 500-50 mcg/dose blister with device 1 inh inhalation BID Qty: 60 0RF Spiriva with HandiHaler 18 mcg capsule, w/inhalation device 1 cap inhalation DAILY Qty: 30 0RF Rx Instructions: puncture 1 cap using device; one dose = 2 inhalations levofloxacin 500 mg tablet 500 mg PO Q24H 3 Days Qty: 3 0RF potassium chloride [Klor-Con M20] 20 mEq Tablet,Er Particles/Crystals 40 meq PO BID 10 Days Qty: 40 0RF Continued (DME) pen needle, diabetic [BD Ultra-Fine Short Pen Needle] 31 gauge x 5/16 needle See Rx Instructions .Route Qty: 100 5RF Rx Instructions: As directed Levemir FlexTouch U-100 Insuln 100 unit/mL (3 mL) insulin pen See Rx Instructions .ROUTE .COMPLEX Qty: 15 0RF Dose Instruction: INJECT 55 UNITS SUBCUTANEOUSLY AT BEDTIME Rx Instructions: INJECT 55 UNITS SUBCUTANEOUSLY AT BEDTIME carvedilol 25 mg Tablet 25 mg PO BID 0RF atorvastatin 20 mg Tablet 20 mg PO DAILY 0RF famotidine 40 mg Tablet 40 mg PO DAILY 0RF sertraline 100 mg Tablet 100 mg PO DAILY 0RF levothyroxine 75 mcg Tablet 75 mcg PO DAILY 0RF aspirin 81 mg Tablet,Chewable 81 mg PO DAILY 0RF bupropion HCl 150 mg Tablet Extended Release 24 Hr 150 mg PO BEDTIME 0RF cholecalciferol (vitamin D3) [Vitamin D3] 400 unit Tablet,Chewable 5,000 unit PO DIRECTED 0RF Rx Instructions: WEEKLY cyclobenzaprine 10 mg Tablet 10 mg PO TID PRN (Reason: Spasms) 0RF potassium chloride 8 mEq Tablet Extended Release 16 meq PO BID 0RF hydrocodone-acetaminophen 7.5-325 mg Tablet 1 tab PO Q6H PRN (Reason: Pain) 0RF Entresto 49-51 mg Tablet 1 tab PO BID 0RF ondansetron HCl [Zofran] 4 mg tablet 4 mg PO Q6H PRN (Reason: nausea and vomiting) Qty: 20 0RF promethazine-codeine 6.25-10 mg/5 mL syrup 5 ml PO Q4H PRN (Reason: Cough) 0RF Changed furosemide [Lasix] 20 mg Tablet 20 mg PO DAILY PRN (Reason: swelling) Qty: 0 0RF potassium chloride 40 mEq/15 mL liquid 40 meq PO DAILY Qty: 473 0RF Discharge Orders: Discharge Order (Routine); Ordered 07/28/21 Ordered By: Bishop Llamas Other Ambulatory Orders: Pulmonary Function Screen with Bronchodilator (Routine) Timeframe: 1 Week Facility: [facility] - Location: Respiratory Therapy Ordered By: Bishpo Llamas Referrals: DatarPablo MD [Physician] - 2 weeks Welch,KEITH Roger [Primary Care Provider] - Discharge Diet: Advance as tolerated and Usual diet Discharge Activity: Resume usual activity and Increase activity as tolerated Patient Instructions: Opioid Safety Discharge Attestations Time Spent in Discharge Care*: greater than 30 min Specific Discharge Activities: educating patient, educating and/or supporting family/caregiver, discussing with pcp/other providers, discussing with counseling case manager/social workers/dc planners, documenting/other paperwork and evaluating patient/reviewing data Status at Discharge: Cognitive status at discharge: cognitively intact, Behavioral status at discharge: cooperative, Functional status at discharge: independent ambulation, Overall status at discharge: patient is back to baseline Quality Metrics Clinical Quality Measures [ No reported AMI, CVA or VTE this stay] Coding Level of Care Code Acute Chg FW DC note Diagnoses Altered mental status R41.82 Acute cystitis N30.00 TIA (transient ischemic attack) G45.9 Reactive airway disease J45.909 Renal insufficiency N28.9 Hypothyroidism E03.9 Hypokalemia E87.6 Diabetes mellitus E11.9 Hypertension I10
[2021-07-28 11:19] VITALS: BP 117/72; PULSE 69; RESP 18; TEMP 36.8; O2SAT 96
[2021-07-28 13:13] LABS: Glucose Point of Care 107 mg/dL (70-110)
== END 2021-07-28 12:56 | disposition home or self-care (01) ==
LOC: ER 07-26 01:45 → MEDSURG 07-26 02:10
PROVIDERS: Admitting Provider Student in an Organized Health Care Education/Training Program; Emergency Provider Emergency Medicine; PCP Nurse Practitioner Family; Visit Provider Student in an Organized Health Care Education/Training Program
DX: R41.82 Altered mental status, unspecified (principal); G45.9 Transient cerebral ischemic attack, unspecified; N30.00 Acute cystitis without hematuria; J45.909 Unspecified asthma, uncomplicated; N28.9 Disorder of kidney and ureter, unspecified; E03.9 Hypothyroidism, unspecified; E87.6 Hypokalemia; E11.9 Type 2 diabetes mellitus without complications; I10 Essential (primary) hypertension; I48.91 Unspecified atrial fibrillation; Z95.0 Presence of cardiac pacemaker; J90 Pleural effusion, not elsewhere classified; Z86.16 Personal history of COVID-19; Z99.81 Dependence on supplemental oxygen; Z79.82 Long term (current) use of aspirin; F32.9 Major depressive disorder, single episode, unspecified; I11.0 Hypertensive heart disease with heart failure; I50.9 Heart failure, unspecified; I25.2 Old myocardial infarction; Z79.01 Long term (current) use of anticoagulants; G47.30 Sleep apnea, unspecified; Z82.49 Family history of ischemic heart disease and other diseases of the circulatory system; Z83.3 Family history of diabetes mellitus
CPT/HCPCS: 36415; 36416; 70450; 70496; 70498; 71045; 80053; 80061; 80306; 81001; 82607; 82746; 82962; 83036; 83540; 83550; 84443; 84484; 85025; 85610; 85730; 87040; 87077; 87086; 87186; 92523; 92610; 93005; 94640; 96365; 96366; 96367; 96372; 97110; 97116; 97161; 97530; 99285; G0378; J0696; J1650; J1815; J3480; J7611; J7626; Q9967

== ENCOUNTER → 2021-08-07 08:42 | Outpatient (BNVA) | payer MEDICARE, SELFPAY | PROVIDERS: PCP Nurse Practitioner Family; Visit Provider Nurse Practitioner | DX: G31.84 Mild cognitive impairment of uncertain or unknown etiology (principal); R29.818 Other symptoms and signs involving the nervous system; E11.65 Type 2 diabetes mellitus with hyperglycemia; Z79.4 Long term (current) use of insulin; Z95.0 Presence of cardiac pacemaker | CPT/HCPCS: 99204 ==

== ENCOUNTER → 2021-09-01 10:23 | Outpatient (BNVA) | payer MEDICARE, SELFPAY | PROVIDERS: PCP Nurse Practitioner Family; Visit Provider Nurse Practitioner Family | DX: D64.9 Anemia, unspecified (principal); I10 Essential (primary) hypertension; E11.9 Type 2 diabetes mellitus without complications; E03.9 Hypothyroidism, unspecified; E78.5 Hyperlipidemia, unspecified | CPT/HCPCS: 80053; 80061; 82043; 84443; 85025 ==

== ENCOUNTER → 2021-09-06 10:46 | Outpatient (BNVA) | payer MEDICARE, SELFPAY | PROVIDERS: PCP Nurse Practitioner Family; Visit Provider Nurse Practitioner Family | DX: E11.9 Type 2 diabetes mellitus without complications (principal) | CPT/HCPCS: 82043 ==

== ENCOUNTER 2021-09-27 12:48 | Outpatient (CLI) | payer MEDICARE, SELFPAY ==
--- NOTE | 2021-09-27 13:02 | US_ITS ---
WS: [id number] RENAL ULTRASOUND HISTORY: CKD3 COMPARISON: None available. TECHNIQUE: 2-D and color Doppler imaging of the kidney submitted. Right kidney: 8.9 cm x 5.3 cm x 5.1 cm. Mild atrophy. Normal echogenicity. No hydronephrosis or solid mass. Left kidney: 9.8 cm x 3.8 cm x 5.5 cm. Normal echogenicity with no hydronephrosis or mass. Aorta: Very poorly visualized. Urinary Bladder: Minimal distention. No intraluminal filling defect. US/US renal BI* [id number] IMPRESSION: 1. Very mild atrophy RIGHT kidney. 2. No hydronephrosis.
== END 2021-09-27 12:49 | disposition home or self-care (01) ==
LOC: RAD 12:52
PROVIDERS: PCP Nurse Practitioner Family; Visit Provider Internal Medicine Nephrology
DX: N18.30 Chronic kidney disease, stage 3 unspecified (principal); N26.1 Atrophy of kidney (terminal)
CPT/HCPCS: 76770

== ENCOUNTER → 2021-12-13 12:34 | Outpatient (BNVA) | payer MEDICARE, SELFPAY | PROVIDERS: PCP Nurse Practitioner Family; Referring Provider Nurse Practitioner; Visit Provider Specialist | DX: G93.40 Encephalopathy, unspecified (principal); G31.84 Mild cognitive impairment of uncertain or unknown etiology; R29.818 Other symptoms and signs involving the nervous system | CPT/HCPCS: 95816 ==

== ENCOUNTER 2022-01-04 09:55 | Emergency (ER) | payer MEDICARE, SELFPAY ==
[2022-01-04 10:08] VITALS: BP 122/64; PULSE 73; RESP 18; TEMP 36.9; O2SAT 95; BMI 35.4
--- NOTE | 2022-01-04 10:33 | XRR_ITS ---
PROCEDURE INFORMATION: Exam: XR Chest Exam date and time: 01/04/2022 10:39 AM Age: 71 years old Clinical indication: Cough and dyspnea; Additional info: Dyspnea/cough TECHNIQUE: Imaging protocol: Radiologic exam of the chest. Views: 1 view. COMPARISON: CR (CHEST, ) 07/25/2021 10:10 PM FINDINGS: Tubes, catheters and devices: A cardiac pacing device is again seen projecting over the left chest. Lungs: Streaky retrocardiac opacity noted. There is blunting of the left costophrenic angle. The right lung is clear. No pneumothorax. Pleural spaces: See Lungs finding. Heart/Mediastinum: Stable cardiomediastinal silhouette. Bones/joints: Degenerative changes of the spine seen. XR/XR chest 1V portable [id number] IMPRESSION: Blunting of the left costophrenic angle, which can be seen with consolidation, atelectasis or small pleural effusion. Clinical correlation
[2022-01-04 10:42] VITALS: O2SAT 97
[2022-01-04 10:46] VITALS: BP 141/72; PULSE 71; RESP 16; O2SAT 97
--- NOTE | 2022-01-04 10:47 | ED_ITS ---
HPI - COVID General: Chief Complaint: COVID symptoms Stated Complaint: hot,can'tsleep, coughing Time Seen by Provider: 01/04/22 10:01 Triage information: Has fever, cough or shortness of breath . Exposure to COVID + person last 14 days History of Present Illness: 71-year-old female presents emergency room complaining of shortness of breath cough myalgias some nausea. She had low- grade fevers both been going on for about the last 2 days. Was recently exposed to COVID. She has not been vaccinated she did test positive for COVID on a rapid antigen in May of this year. She has a history of cardiomyopathy and has an ICD in place of battery was recently replaced. She denies any chest pain has not had any worsening orthopnea or PND no increasing swelling in her extremities. Prior covid testing: no COVID 19 common symptoms: positive fever(s), chills, cough, non-productive cough, dyspnea, body aches and headache(s) Pertinent comorbid conditions: other (Congestive heart failure, cardiomyopathy) Treatment prior to arrival: none COVID Results: SARS-CoV-2 Antigen (Rapid) Positive (Negative) H 06/13/21 21:3 0 SARS-CoV-2 (PCR) Detected (NOT DETECT) A 01/04/22 10:49 Coronavirus Type 229E (PCR) Not detected (NOT DETECT) 01/04/22 10:49 Review of Systems Const: Reports: fever(s), chills and body aches Resp: Reports: dyspnea and non-productive cough Neuro: Reports: headache(s) PFS ED PFSH: Medical History COVID-19 Depression Diabetes mellitus Encephalopathy Heart disease Hx of cardiac pacemaker Hypertension Hypokalemia Hypothyroidism Migraine Mild cognitive impairment Myocardial infarction On anticoagulant therapy Renal insufficiency Sleep apnea Thyroid disease Transient neurological symptoms Transient neurological symptoms Surgical History Hx of cholecystectomy Hx of hysterectomy Family History Other Diabetes Heart disease Social History Smoking and tobacco status: never smoked Alcohol intake: never History of recent travel: No Physical Exam Const: COMMON NORMALS: no acute distress GENERAL APPEARANCE: cooperative and comfortable ORIENTATION/CONSCIOUSNESS: Yes awake, Yes oriented to person, Yes oriented to place and Yes oriented to time HENMT: COMMON NORMALS: normocephalic, atraumatic and hearing grossly normal bilaterally HEAD & SCALP: normocephalic and atraumatic Resp: COMMON NORMALS: normal respiratory effort, No retractions, No use of accessory muscles and clear to auscultation bilaterally AUSCULTATION: clear to auscultation bilaterally Cardio: COMMON NORMALS: regular rate, regular rhythm and No murmurs present (Cardio) RATE: regular rate RHYTHM: regular rhythm GI: COMMON NORMALS: Soft to palpation and No hepatosplenomegaly present AUSCULTATION: Yes normoactive bowel sounds PALPATION: Yes Soft to palpation, No Tenderness to palpation present (GI), No Guarding due to palpation present (GI) and Yes No hepatosplenomegaly present Extremity: COMMON NORMALS: normal to inspection, capillary refill normal, no clubbing, cyanosis or edema, no calf tenderness and no pedal edema Neuro: SENSORIUM/ORIENTATION: Yes oriented to person, Yes oriented to place and Yes oriented to time Skin: COMMON NORMALS: no rashes or lesions noted GENERAL SKIN EXAM: no rashes or lesions noted Course Vital Signs: Vital signs: Vital Signs Temperature 98.4 F 01/04/22 10:08 Pulse Rate 71 01/04/22 10:58 Respiratory Rate 18 01/04/22 10:58 Blood Pressure 119/56 01/04/22 10:58 Pulse Oximetry 97 01/04/22 10:58 Oxygen Delivery Me thod 01/04/22 10:46 MDM - COVID Medical Decision Making Suspected COVID-19. Overall patient appears well not significantly decompensated continue current medications follow-up as needed maintain self quarantine till results are available. Medical Records I reviewed the patient's medical records. Lab Data I reviewed the patient's lab results. Radiology Impressions Chest X-Ray 01/04/22 10:33 IMPRESSION: Blunting of the left costophrenic angle, which can be seen with consolidation, atelectasis or small pleural effusion. Clinical correlation Laboratory Results Coronavirus 229E (PCR) Not detected (NOT DETECT) 01/04/22 10:49 SARS-CoV-2 (PCR) Detected (NOT DETECT) A 01/04/22 10:49 SARS-CoV-2 Antigen (Rapid) Positive (Negative) H 06/13/21 21:3 0 SARS-CoV-2 (PCR) Detected (NOT DETECT) A 01/04/22 10:49 Coronavirus Type 229E (PCR) Not detected (NOT DETECT) 01/04/22 10:49 Discharge Plan Discharge Patient Disposition: Home Clinical Impression: Suspected 2019-nCoV infection, History of atrial fibrillation, Diastolic congestive heart failure Condition: Stable Prescriptions: No Action (DME) pen needle, diabetic [BD Ultra-Fine Short Pen Needle] 31 gauge x 5/16 needle See Rx Instructions .Route Qty: 100 5RF Rx Instructions: As directed (DME) pen needle, diabetic [TechLITE Pen Needle] 32 gauge x 5/32 needle See Rx Instructions .Route Qty: 100 0RF Rx Instructions: use with insulin Levemir FlexTouch U-100 Insuln 100 unit/mL (3 mL) insulin pen See Rx Instructions .ROUTE .COMPLEX Qty: 45 1RF Dose Instruction: INJECT 55 UNITS SUBCUTANEOUSLY AT BEDTIME Rx Instructions: INJECT 55 UNITS SUBCUTANEOUSLY AT BEDTIME carvedilol 25 mg Tablet 25 mg PO BID atorvastatin 20 mg Tablet 20 mg PO DAILY famotidine 40 mg Tablet 40 mg PO DAILY sertraline 100 mg Tablet 100 mg PO DAILY levothyroxine 75 mcg Tablet 75 mcg PO DAILY aspirin 81 mg Tablet,Chewable 81 mg PO DAILY bupropion HCl 150 mg Tablet Extended Release 24 Hr 150 mg PO BEDTIME cyclobenzaprine 10 mg Tablet 10 mg PO TID PRN (Reason: Spasms) potassium chloride 8 mEq Tablet Extended Release 16 meq PO BID hydrocodone-acetaminophen 7.5-325 mg Tablet 1 tab PO Q6H PRN (Reason: Pain) Entresto 49-51 mg Tablet 1 tab PO BID ondansetron HCl [Zofran] 4 mg tablet 4 mg PO Q6H PRN (Reason: nausea and vomiting) Qty: 20 0RF promethazine-codeine 6.25-10 mg/5 mL syrup 5 ml PO Q4H PRN (Reason: Cough) benzonatate 100 mg Capsule 100 mg PO TID PRN (Reason: cough) Qty: 10 0RF Advair Diskus 500-50 mcg/dose blister with device 1 inh inhalation BID Qty: 60 0RF Spiriva with HandiHaler 18 mcg capsule, w/inhalation device 1 cap inhalation DAILY Qty: 30 0RF Rx Instructions: puncture 1 cap using device; one dose = 2 inhalations potassium chloride 40 mEq/15 mL liquid 40 meq PO DAILY Qty: 473 0RF Discharge Orders: Discharge ED (Routine); Ordered 01/04/22 Ordered By: Kiel Dang Referrals: Welch,Acacia, [employer] [Primary Care Provider] - Patient Instructions: Opioid Safety Activity Restrictions/Additional Instructions: You were tested for COVID recommend you maintain quarantine until results are back. Monitor your breathing if you have any worsening of breathing return to the emergency room. Coding Level of Care Code ED Financial Accounting Analyst for Oscar Yoon
[2022-01-04 10:58] VITALS: BP 119/56; PULSE 71; RESP 18; O2SAT 97
[2022-01-04 12:43] LABS: Adenovirus Not Detected (NOT DETECT); Chlamydia Pneumoniae Not Detected (NOT DETECT); Coronavirus 229E,HKU1,NL63,OC4 Not Detected (NOT DETECT); Human Metapneumovirus Not Detected (NOT DETECT); Human Rhinovirus/Enterovirus Not Detected (NOT DETECT); Influenza A Not Detected (NOT DETECT); Influenza A H1 Not Detected (NOT DETECT); Influenza A H1-2009 Not Detected (NOT DETECT); Influenza A H3 Not Detected (NOT DETECT); Influenza B Not Detected (NOT DETECT); Mycoplasma Pneumoniae Not Detected (NOT DETECT); Parainfluenza Virus Type 1 Not Detected (NOT DETECT); Parainfluenza Virus Type 2 Not Detected (NOT DETECT); Parainfluenza Virus Type 3 Not Detected (NOT DETECT); Parainfluenza Virus Type 4 Not Detected (NOT DETECT); Respiratory Syncytial Virus A Not Detected (NOT DETECT); Respiratory Syncytial Virus B Not Detected (NOT DETECT); SARS-COV-2 Detected (NOT DETECT)
== END 2022-01-04 11:00 | disposition home or self-care (01) ==
PROVIDERS: Emergency Provider Family Medicine; PCP Nurse Practitioner Family
DX: U07.1 COVID-19 (principal); I48.91 Unspecified atrial fibrillation; I11.0 Hypertensive heart disease with heart failure; I50.30 Unspecified diastolic (congestive) heart failure; Z79.4 Long term (current) use of insulin; Z79.82 Long term (current) use of aspirin; E11.9 Type 2 diabetes mellitus without complications; Z95.0 Presence of cardiac pacemaker; I25.2 Old myocardial infarction
CPT/HCPCS: 71045; 87635; 99283

== ENCOUNTER → 2022-03-08 10:50 | Outpatient (BNVA) | payer MEDICARE, SELFPAY | PROVIDERS: PCP Nurse Practitioner Family; Visit Provider Nurse Practitioner Family | DX: I10 Essential (primary) hypertension (principal); E11.9 Type 2 diabetes mellitus without complications | CPT/HCPCS: 80053; 83036; 84443 ==

== ENCOUNTER 2022-06-14 15:05 | Emergency (ER) | payer MEDICARE, SELFPAY ==
--- NOTE | 2022-06-14 15:14 | XR_ITS ---
WS: [id number] Exam: XR chest 1V portable [id number] Date/Time of Exam: 06/14/2022 3:19 PM Reason For Exam: dyspnea/cough Comparison 01/04/2022. Lungs are clear and fully expanded. Heart size top limits normal. Prominent fat pad along the left chata rder heart unchanged in appearance. Bony structures are intact. A cardiac pacer superimposes the left chest. XR/XR chest 1V portable [id number] IMPRESSION: 1. No acute cardiopulmonary finding. No change.
--- NOTE | 2022-06-14 15:15 | ED_ITS ---
HPI - SOB/Dyspnea General: Chief Complaint: Shortness of Breath/Dyspnea Stated Complaint: SOB, cough Time Seen by Provider: 06/14/22 15:14 Source: patient Mode of arrival: ambulatory History of Present Illness: HPI Narrative: 72-year-old female with a history of ischemic cardiomyopathy severe congestive h eart failure. She has been out of her nostril for the last week she is having increasing shortness of breath and cough with orthopnea she denies any chest pain does not notice any swelling in her lower extremities. Patient reports having an ICD in place. Her last echocardiogram was March 2020 that I can find in the chart that shows a ejection fraction of around 50%. There was global hypokinesis and some septal bounce. Diastolic dysfunction rated at 3/4. Patient is not currently on any diuretics she states she sees a vice president of development in [place] who had discussed possibly starting her on some. MD elicited complaint: shortness of breath and cough Pertinent past history: congestive heart failure Timing: constant Severity: moderate Exacerbating factors: lying flat and exertion Relieving factors: oxygen, rest and upright position Known history of: congestive heart failure Associated symptoms: Reports chest congestion and cough; Deny abdominal pain, chest pain, diaphoresis, dizziness, extremity pain, fever(s), hemoptysis, lightheadedness, myalgias, nausea, orthopnea, palpitations, paresthesias, polydipsia, polyuria, rash, sense of impending doom, syncope or vomiting Treatment prior to arrival: none Review of Systems Const: Denies: fever(s), chills, fatigue, malaise or diaphoresis ENMT: Denies: throat pain, ear or mastoid pain, nasal discharge or nasal congestion Card: Reports: edema and swelling of feet/ankles; Denies: chest pain, palpitations, irregular heart rhythm, lightheadedness, syncope or orthopnea Resp: Reports: dyspnea, non-productive cough and chest congestion; Denies: productive cough, wheezing or hemoptysis GI: Denies: abdominal pain, nausea or vomiting : Denies: flank pain, difficulty voiding, dysuria, urinary frequency or urinary urgency Musc: Denies: extremity pain Skin/Breast: Denies: rash or pruritus Neuro: Denies: dizziness Endo: Denies: polyuria or polydipsia PFSH ED PFSH: Medical History COVID-19 Depression Diabetes mellitus Encephalopathy Heart disease Hx of cardiac pacemaker Hypertension Hypokalemia Hypothyroidism Migraine Mild cognitive impairment Myocardial infarction On anticoagulant therapy Renal insufficiency Sleep apnea Thyroid disease Transient neurological symptoms Transient neurological symptoms Surgical History Hx of cholecystectomy Hx of hysterectomy Family History Other Diabetes Heart disease Social History Smoking and tobacco status: never smoked Alcohol intake: never History of recent travel: No Physical Exam Const: GENERAL APPEARANCE: cooperative and comfortable ORIENTATION/CONSCIOUSNESS: Yes awake, Yes oriented to person, Yes oriented to place and Yes oriented to time HENMT: COMMON NORMALS: normocephalic, atraumatic and hearing grossly normal bilaterally HEAD & SCALP: normocephalic and atraumatic Resp: AUSCULTATION: crackles Cardio: COMMON NORMALS: regular rate, regular rhythm and No murmurs present (Cardio) RATE: regular rate RHYTHM: regular rhythm GI: COMMON NORMALS: Soft to palpation and No hepatosplenomegaly present AUSCULTATION: Yes normoactive bowel sounds PALPATION: Yes Soft to palpation, No Tenderness to palpation present (GI), No Guarding due to palpation present (GI) and Yes No hepatosplenomegaly present Extremity: COMMON NORMALS: normal to inspection, capillary refill normal and n o calf tenderness GENERAL: Yes edema Neuro: SENSORIUM/ORIENTATION: Yes oriented to person, Yes oriented to place and Yes oriented to time Skin: COMMON NORMALS: no rashes or lesions noted GENERAL SKIN EXAM: no rashes or lesions noted Course Vital Signs: Vital signs: Vital Signs Pulse Rate 87 06/14/22 15:16 Respiratory Rate 18 06/14/22 15:16 Blood Pressure 179/83 06/14/22 15:16 Pulse Oximetry 95 06/14/22 15:16 Oxygen Delivery Me thod 06/14/22 15:16 MDM - SOB/Dyspnea Medical Decision Making Patient improved with diuresis. Start on Lasix 20 mg daily and discharged on her Entresto at the same dose she has been on previously. She states she does not have electricity at home we made several calls unfortunately there is nowhere available as far as a shoulder pain he could go to at this time. She with a friend states he will be going to a hotel so she can use her CPAP. Medical Records I reviewed the patient's medical records. Lab Data I reviewed the patient's lab results. 06/14/22 15:25 06/14/22 15:25 Labs/Radiology: Radiology Impressions Chest X-Ray 06/14/22 15:14 IMPRESSION: 1. No acute cardiopulmonary finding. No change. Laboratory Results WBC 9.5 10^3/uL (4.0-10.0) 06/14/22 15:25 RBC 4.38 10^6/uL (4.1-5.3) 06/14/22 15:25 Hgb 12.5 g/dL (11.5-15.3) 06/14/22 15:25 Hct 39.3 % (37.0-47.0) 06/14/22 15:25 MCV 89.7 fl (81-99) 06/14/22 15:25 MCH 28.5 pg (28.0-34.0) 06/14/22 15:25 MCHC 31.8 g/dL (30.0-36.0) 06/14/22 15:25 RDW 13.9 % (12.1-15.1) 06/14/22 15:25 Plt Count 111 10^3/cmm (130-400) L 06/14/22 15:25 MPV 10.1 fL (7.4-10.4) 06/14/22 15:25 Neut % (Auto) 78.8 % 06/14/22 15:25 Lymph % (Auto) 10.8 % 06/14/22 15:25 [place] % (Auto) 7.0 % 06/14/22 15:25 Eos % (Auto) 2.7 % 06/14/22 15:25 Baso % (Auto) 0.3 % 06/14/22 15:25 Neut # (Auto) 7.51 10^3/uL (1.8-7.7) 06/14/22 15:25 Lymph # (Auto) 1.0 10^3/uL (0.8-4.8) 06/14/22 15:25 [place] # (Auto) 0.7 10^3/uL (0.2-0.9) 06/14/22 15:25 Eos # (Auto) 0.3 10^3/uL (0.0-0.8) 06/14/22 15:25 Baso # (Auto) 0.0 10^3/uL (0.0-0.1) 06/14/22 15:25 Nucleated RBC % (auto) 0 % 06/14/22 15:25 Nucleated RBCs # 0.0 /100WBC 06/14/22 15:25 Sodium 140 mmol/L (136-145) 06/14/22 15:25 Potassium 4.3 mmol/L (3.5-5.1) 06/14/22 15:25 Chloride 104 mmol/L (98-107) 06/14/22 15:25 Carbon Dioxide 26 mmol/L (22-29) 06/14/22 15:25 Anion Gap 14.3 (5-19) 06/14/22 15:25 BUN 20 mg/dL (8-23) 06/14/22 15:25 Creatinine 1.0 mg/dL (0.5-0.9) H 06/14/22 15:25 GFR Calculation Not Reportable 06/14/22 15:25 Glucose 173 mg/dL (65-115) H 06/14/22 15:25 Calculated Osmolality 297 mOsm/kg (285-295) H 06/14/22 15:25 Calcium 9.8 mg/dL (8.5-10.5) 06/14/22 15:25 NT-Pro-B Natriuret Pep 3194 pg/mL (0-125) H 06/14/22 15:25 Discharge Plan Discharge Patient Disposition: Home Clinical Impression: Congestive heart failure, Obstructive sleep apnea Condition: Stable Prescriptions: New Entresto 49-51 mg tablet 1 tab PO BID 28 Days Qty: 56 0RF Lasix 20 mg tablet 20 mg PO DAILY Qty: 30 0RF No Action (DME) 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 meter,continuous Misc See Rx Instructions .Route Qty: 1 0RF Rx Instructions: As directed (DME) 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 sensor Device See Rx Instructions .Route Qty: 5 1RF Rx Instructions: As directed Levemir FlexTouch U-100 Insuln 100 unit/mL (3 mL) insulin pen See Rx Instructions .ROUTE .COMPLEX Qty: 45 0RF Dose Instruction: inject 55 units UNDER THE SKIN every night AT bedtime Rx Instructions: inject 59 units UNDER THE SKIN every night AT bedtime (DME) 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 meter,continuous Misc See Rx Instructions .Route Qty: 1 0RF Rx Instructions: As directed (DME) pen needle, diabetic [BD Ultra-Fine Short Pen Needle] 31 gauge x 5/16 needle See Rx Instructions .Route Qty: 100 5RF Rx Instructions: As directed (DME) pen needle, diabetic [TechLITE Pen Needle] 32 gauge x 5/32 needle See Rx Instructions .Route Qty: 100 0RF Rx Instructions: use with insulin carvedilol 25 mg Tablet 25 mg PO BID atorvastatin 20 mg Tablet 20 mg PO DAILY famotidine 40 mg Tablet 40 mg PO DAILY sertraline 100 mg Tablet 100 mg PO DAILY levothyroxine 75 mcg Tablet 75 mcg PO DAILY aspirin 81 mg Tablet,Chewable 81 mg PO DAILY bupropion HCl 150 mg Tablet Extended Release 24 Hr 150 mg PO BEDTIME cyclobenzaprine 10 mg Tablet 10 mg PO TID PRN (Reason: Spasms) potassium chloride 8 mEq Tablet Extended Release 16 meq PO BID hydrocodone-acetaminophen 7.5-325 mg Tablet 1 tab PO Q6H PRN (Reason: Pain) Entresto 49-51 mg Tablet 1 tab PO BID ondansetron HCl [Zofran] 4 mg tablet 4 mg PO Q6H PRN (Reason: nausea and vomiting) Qty: 20 0RF promethazine-codeine 6.25-10 mg/5 mL syrup 5 ml PO Q4H PRN (Reason: Cough) Advair Diskus 500-50 mcg/dose blister with device 1 inh inhalation BID Qty: 60 0RF Spiriva with HandiHaler 18 mcg capsule, w/inhalation device 1 cap inhalation DAILY Qty: 30 0RF Rx Instructions: puncture 1 cap using device; one dose = 2 inhalations potassium chloride 40 mEq/15 mL liquid 40 meq PO DAILY Qty: 473 0RF Discharge Orders: Discharge ED (Routine); Ordered 06/14/22 Ordered By: Kiel Dang Referrals: Acacia Welch, REAL ESTATE CLOSING COORDINATOR [Primary Care Provider] - Discharge Diet: Usual diet Discharge Activity: Limit activity as instructed Patient Instructions: Opioid Safety, Pain Management Activity Restrictions/Additional Instructions: You are seen today for mild exacerbation of your congestive heart failure. Your symptoms improved with diuresis would recommend that you go home on 20 mg Lasix once daily in the morning. It is also essential that you restart your Entresto. A prescription was given for 1 month. Follow-up with your primary care doctor in the next 3 to 4 days. Return if you have further problems. Coding Level of Care Code ED Oil Changer for [place] Fwd Exam Detailed
[2022-06-14 15:16] VITALS: BP 179/83; PULSE 87; RESP 18; O2SAT 95; BMI 35.4
[2022-06-14 15:37] LABS: Basophils % 0.3 %; Eosinophils # 0.3 10^3/uL (0.0-0.8); Eosinophils % 2.7 %; Hematocrit 39.3 % (37.0-47.0); Hemoglobin 12.5 g/dL (11.5-15.3); Lymphocytes % 10.8 %; Mean Corpuscular HGB Conc 31.8 g/dL (30.0-36.0); Mean Corpuscular Hemoglobin 28.5 pg (28.0-34.0); Mean Corpuscular Volume 89.7 fl (81-99); Mean Platelet Volume 10.1 fL (7.4-10.4); Monocytes # 0.7 10^3/uL (0.2-0.9); Neutrophils # 7.51 10^3/uL (1.8-7.7); Neutrophils % 78.8 %; Nucleated Red Blood Cells % 0 %; Platelet Count 111 10^3/cmm (130-400); Red Blood Count 4.38 10^6/uL (4.1-5.3); Red Cell Distribution Width 13.9 % (12.1-15.1); White Blood Count 9.5 10^3/uL (4.0-10.0)
[2022-06-14] MEDS: hyDRALAzine 20 mg/mL INJ 1 mL 10 MG IVP (15:40)
[2022-06-14] MEDS: FUROsemide 10 mg/mL SDV 4mL 40 MG IVP (15:42)
[2022-06-14] MEDS: sacubitril/valsartan 24-26 mg Tablet 1 EACH PO (15:44)
[2022-06-14 15:59] LABS: Anion Gap 14.3 (5-19); Blood Urea Nitrogen 20 mg/dL (8-23); Calcium 9.8 mg/dL (8.5-10.5); Carbon Dioxide 26 mmol/L (22-29); Chloride 104 mmol/L (98-107); Glucose 173 mg/dL (65-115); NT Pro B Type Natriuretic Pept 3194 pg/mL (0-125); Osmolality Calculated 297 mOsm/kg (285-295); Potassium 4.3 mmol/L (3.5-5.1); Sodium 140 mmol/L (136-145)
--- NOTE | 2022-06-14 16:39 | ECG_ITS ---
[facility] Test Date: 2022-06-14 Pat Name: Wendy Dockery Department: Room: Gender: Female Land Mobile Radio Technician: : 1950 Requested By: Kiel Sen Order Number: [id number] Ilana MD: Charisma Elam M.D. Measurements Intervals [place] Rate: 87 P: -86 OR: 268 QRS: -87 QRSD: 182 T: 74 QT: 427 QTc: 516 Interpretive Statements ELECTRONIC VENTRICULAR PACEMAKER ABNORMAL RHYTHM ECG Compared to ECG 07/26/2021 03:33:47 No significant changes Electronically Signed On 06-14-2022 23:46:13 STOCK RECEIVER by Charisma Elam M.D. [id number]
== END 2022-06-14 18:12 | disposition home or self-care (01) ==
PROVIDERS: Emergency Provider Family Medicine; PCP Nurse Practitioner Family
DX: G47.33 Obstructive sleep apnea (adult) (pediatric) (principal); I11.0 Hypertensive heart disease with heart failure; I50.9 Heart failure, unspecified; Z79.82 Long term (current) use of aspirin; Z79.4 Long term (current) use of insulin; E11.9 Type 2 diabetes mellitus without complications; Z95.0 Presence of cardiac pacemaker; I10 Essential (primary) hypertension; I25.2 Old myocardial infarction
CPT/HCPCS: 36415; 71045; 80048; 83880; 85025; 93005; 96374; 96375; 99285; J0360; J1940

== ENCOUNTER 2023-03-26 10:13 | Outpatient (CLI) | payer MEDICARE, SELFPAY ==
--- NOTE | 2023-03-26 10:20 | MM_ITS ---
WS: [id number] Bilateral screening 3D tomosynthesis digital mammogram, 03/26/2023 Clinical Data: SCREENING Comparison: 03/30/2020, 11/04/2018, 03/16/2016, 11/10/2013, 09/10/2011, 07/18/2009. Findings: The breast parenchymal pattern shows heterogeneous density. No spiculated masses or clustered calcifi cations are seen. There are no secondary signs of carcinoma. There are numerous benign dystrophic jesús cifications throughout both breasts unchanged. Impression: 1. Negative bilateral mammogram unchanged. 2. Recommend annual screening mammograms. MM/[place] [id number] BIRADS: 1-Negative FOLLOW UP: 1 Year Follow-up The CAD swatch checker was used.
== END 2023-03-26 10:14 | disposition home or self-care (01) ==
PROVIDERS: PCP Nurse Practitioner Family; Visit Provider Nurse Practitioner Family
DX: Z12.31 Encounter for screening mammogram for malignant neoplasm of breast (principal)
CPT/HCPCS: 77063; 77067

== ENCOUNTER 2023-04-18 19:14 | Emergency (ER) | payer MEDICARE, SELFPAY ==
[2023-04-18 19:19] VITALS: BP 214/116; PULSE 79; RESP 24; TEMP 36.6; O2SAT 98; BMI 35.4
--- NOTE | 2023-04-18 19:21 | XRR_ITS ---
PROCEDURE INFORMATION: Exam: XR Chest Exam date and time: 04/18/2023 8:09 PM Age: 72 years old Clinical indication: Dyspnea TECHNIQUE: Imaging protocol: Radiologic exam of the chest. Views: 1 view. COMPARISON: CR XR chest 1V portable [id number] 06/14/2022 3:34 PM FINDINGS: Lungs: Mild blunting of the left costophrenic angle, unchanged. No new focal consolidation. Pleural spaces: No large pleural effusion. No pneumothorax. Heart/Mediastinum: Left cardiac SUBASSEMBLER D device. Bones/joints: No acute abnormality. XR/XR chest 1V portable [id number] IMPRESSION: Mild blunting of the left costophrenic angle, appears similar dating back to 01/04/2022 radiographs. No new focal consolidation.
--- NOTE | 2023-04-18 19:25 | ECG_ITS ---
[facility] Test Date: 2023-04-18 Pat Name: Wendy Dockery Department: Room: Gender: Female Web Press Operator: : 1950 Requested By: Jonathan Scott Order Number: [id number] Ilana MD: Charisma Elam M.D. Measurements Intervals [place] Rate: 76 P: 92 AL: 264 QRS: 265 QRSD: 184 T: 108 QT: 458 QTc: 516 Interpretive Statements ELECTRONIC VENTRICULAR PACEMAKER ABNORMAL RHYTHM ECG Compared to ECG 06/14/2022 16:39:35 No significant changes Electronically Signed On 04-19-2023 6:51:41 KILN WORKER by Charisma Elam M.D. [id number] f
--- NOTE | 2023-04-18 19:27 | W.ED.SOB ---
HPI - SOB/Dyspnea General: Chief Complaint: Shortness of Breath/Dyspnea Stated Complaint: trouble breathing, nausea Time Seen by Provider: 04/18/23 19:20 History of Present Illness: HPI Narrative: Patient presents to the ER with complaints of being sick for the last month. Patient states she has had a cough, shortness of breath and has had chills all intermittent over the last month. Patient thinks she went to a clinic and [place] with a put her on antibiotics but she did not get any better. Over the last month patient says she has not gotten any worse either. Patient says she does have a productive cough and she is coughing up green sputum. Patient states she cannot lie flat because if she does she loses her wind. Patient does have a history of hypertension cardiomyopathy patient is currently on Spiriva, spironolactone, Advair Diskus, Entresto, just to name a few of her meds. Review of Systems General: Reports: 10 or more systems reviewed and unremarkable except in HPI and below PFSH ED PFSH: Medical History COVID-19 Depression Diabetes mellitus Encephalopathy Heart disease Hx of cardiac pacemaker Hypertension Hypokalemia Hypothyroidism Migraine Mild cognitive impairment Myocardial infarction On anticoagulant therapy Renal insufficiency Sleep apnea Thyroid disease Transient neurological symptoms Transient neurological symptoms Surgical History Hx of cholecystectomy Hx of hysterectomy Family History Other Diabetes Heart disease Social History Smoking and tobacco/nicotine status: never used tobacco/nicotine Alcohol intake: never Substance/Drug Use: never Physical Exam Const: COMMON NORMALS: no acute distress, average body habitus, patient oriented x3, no limitations, healthy appearing, alert and well nourished HENMT: COMMON NORMALS: normocephalic, atraumatic, hearing grossly normal bilaterally, external ears normal, Normal external nose present, moist oral mucous membranes and oropharynx normal HEAD & SCALP: normocephalic and atraumatic NOSE: Normal external nose present EXTERNAL EAR: Yes external ears normal Neck/C-Spine: COMMON NORMALS: full ROM, no lymphadenopathy, supple, no meningeal signs, no JVD and Thyroid normal THYROID: Thyroid normal Chest: COMMONS NORMALS: normal inspection of the chest and normal palpation of entire chest wall Resp: COMMON NORMALS: normal respiratory effort, No retractions, No use of accessory muscles and clear to auscultation bilaterally AUSCULTATION: clear to auscultation bilaterally Cardio: COMMON NORMALS: no JVD, regular rate, regular rhythm, S1 normal heart sound present, S2 normal heart sound present, No gallops present (Cardio), No clicks present (Cardio), No murmurs present (Cardio) and No rub (Cardio) RATE: regular rate RHYTHM: regular rhythm HEART SOUNDS: S1 normal heart sound present and S2 normal heart sound present Extremity: NARRATIVE EXTREMITY EXAM: No edema to bilateral lower extremities Neuro: COMMON NORMALS: patient oriented x3 SENSORIUM/ORIENTATION: Yes alert MENINGEAL SIGNS: Yes no meningeal signs Course Vital Signs: Vital signs: Vital Signs Temperature 97.8 F 04/18/23 19:19 Pulse Rate 79 04/18/23 20:47 Respiratory Rate 24 H 04/18/23 19:19 Blood Pressure 195/108 04/18/23 20:56 Pulse Oximetry 94 04/18/23 20:47 Oxygen Delivery Me thod Room Air 04/18/23 20:47 MDM - SOB/Dyspnea Medical Decision Making Patient presents to the ER with cough for the last 1 month. Shortness of breath. Patient has seen her PCP for this and been treated with antibiotics previously with no symptom relief. Patient had blood work done which revealed her white count was normal at 9.0. BUN/creatinine was 13 and 1.0 but her potassium was low at 2.6. Patient was given 40 mEq potassium orally in the ER x 2. Showed no focal consolidation. EKG was unremarkable. Patient will be discharged home on potassium, cough suppressant, and steroids patient should follow-up with her PCP within the next 7 days for further evaluation and treatment. Differential Diagnosis Likely acute exacerbation of chronic obstructive airways disease and congestive heart failure; Unlikely community acquired pneumonia, asthma with exacerbation or pulmonary embolism Medical Records I reviewed the patient's medical records. Lab Data I reviewed the patient's lab results. 04/18/23 19:35 04/18/23 19:35 Labs/Radiology: Radiology Impressions Chest X-Ray 04/18/23 19:21 IMPRESSION: Mild blunting of the left costophrenic angle, appears similar dating back to 01/04/2022 radiographs. No new focal consolidation. Laboratory Results WBC 9.02 10^3/uL (3.29-11.43) 04/18/23 19:35 RBC 4.71 10^6/uL (3.85-5.65) 04/18/23 19:35 Hgb 13.60 g/dL (11.27-16.99) 04/18/23 19:35 Hct 42.2 % (36-47) 04/18/23 19:35 MCV 89.6 fl (85-98) 04/18/23 19:35 MCH 28.9 pg (27-33) 04/18/23 19:35 MCHC 32.2 g/dL (30-55) 04/18/23 19:35 RDW 14.4 % (12.1-15.1) 04/18/23 19:35 Plt Count 181 10^3/cmm (157-399) 04/18/23 19:35 MPV 10.6 fL (7.4-10.4) H 04/18/23 19:35 Neut % (Auto) 73.1 % 04/18/23 19:35 Lymph % (Auto) 16.0 % 04/18/23 19:35 [place] % (Auto) 6.7 % 04/18/23 19:35 Eos % (Auto) 3.5 % 04/18/23 19:35 Baso % (Auto) 0.4 % 04/18/23 19:35 Neut # (Auto) 6.59 10^3/uL (1.8-7.7) 04/18/23 19:35 Lymph # (Auto) 1.4 10^3/uL (0.8-4.8) 04/18/23 19:35 [place] # (Auto) 0.6 10^3/uL (0.2-0.9) 04/18/23 19:35 Eos # (Auto) 0.3 10^3/uL (0.0-0.8) 04/18/23 19:35 Baso # (Auto) 0.0 10^3/uL (0.0-0.1) 04/18/23 19:35 Nucleated RBC % (auto) 0 % 04/18/23 19:35 Nucleated RBCs # 0.0 /100WBC 04/18/23 19:35 Sodium 141 mmol/L (136-145) 04/18/23 19:35 Potassium 2.6 mmol/L (3.5-5.1) L* 04/18/23 19:35 Chloride 100 mmol/L (98-107) 04/18/23 19:35 Carbon Dioxide 27 mmol/L (22-29) 04/18/23 19:35 Anion Gap 16.6 (5-19) 04/18/23 19:35 BUN 13 mg/dL (8-23) 04/18/23 19:35 Creatinine 1.0 mg/dL (0.5-0.9) H 04/18/23 19:35 GFR Calculation Not Reportable 04/18/23 19:35 Glucose 169 mg/dL (65-115) H 04/18/23 19:35 Calculated Osmolality 296 mOsm/kg (285-295) H 04/18/23 19:35 Calcium 9.3 mg/dL (8.5-10.5) 04/18/23 19:35 Magnesium 2.0 mg/dL (1.7-2.3) 04/18/23 19:35 Total Bilirubin 1.0 mg/dL (0.15-1.2) 04/18/23 19:35 AST 13 U/L (0-32) 04/18/23 19:35 ALT 9 U/L (0-33) 04/18/23 19:35 Alkaline Phosphatase 98 U/L (35-105) 04/18/23 19:35 Troponin T Baseline 31 ng/L (0-10) H 04/18/23 19:35 Troponin T 120 Minute 29.95 ng/L (0-10) H 04/18/23 21:05 Delta Troponin T -1.05 ABS# (0-10) L 04/18/23 21:05 NT-Pro-B Natriuret Pep 3839 pg/mL (0-125) H 04/18/23 19:35 Total Protein 7.3 g/dL (6.6-8.7) 04/18/23 19:35 Albumin 4.2 g/dL (3.5-5.2) 04/18/23 19:35 Globulin 3.1 g/dL (1.3-4.6) 04/18/23 19:35 All radiology interpretation(s) finalized by discharge EKG Data EKG 1: I personally reviewed and interpreted this EKG as follows: EKG Interpretation Date: 04/18/23 EKG interpretation time: 19:25 Prior EKG tracings: available for review Interpretation: Ventricular rate 76 bpm, IA interval 264, QRS duration 184, QTc of 488, electronic ventricular pacemaker EKG 2: I personally reviewed and interpreted this EKG as follows: EKG Interpretation Date: 04/18/23 EKG interpretation time: 21:06 Prior EKG tracings: available for review Interpretation: EKG shows ventricular rate 70 bpm, IA interval 272, QRS duration 188, QTc of 517, electronic ventricular pacemaker Discharge Plan Discharge Patient Disposition: Home Clinical Impression: Acute hypokalemia, Cough Condition: Stable Prescriptions: No Action (DME) 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 meter,continuous Misc See Rx Instructions .Route Qty: 1 0RF Rx Instructions: As directed [place]ard[place] 10 mg tablet 10 mg PO DAILY (DME) 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 meter,continuous Misc See Rx Instructions .Route Qty: 1 0RF Rx Instructions: As directed (DME) 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 sensor Device See Rx Instructions .Route Qty: 5 1RF Rx Instructions: As directed Levemir FlexTouch U100 Insulin 100 unit/mL (3 mL) insulin pen See Rx Instructions .ROUTE .COMPLEX Qty: 45 2RF Dose Instruction: INJECT 59 UNITS SUBCUTANEOUSLY AT BEDTIME Rx Instructions: INJECT 59 UNITS SUBCUTANEOUSLY AT BEDTIME; spironolactone 25 mg tablet 25 mg PO DAILY (DME) pen needle, diabetic [BD Ultra-Fine Short Pen Needle] 31 gauge x 5/16 needle See Rx Instructions .Route Qty: 100 5RF Rx Instructions: As directed (DME) pen needle, diabetic [TechLITE Pen Needle] 32 gauge x 5/32 needle See Rx Instructions .Route Qty: 100 0RF Rx Instructions: use with insulin carvedilol 25 mg Tablet 25 mg PO BID atorvastatin 20 mg Tablet 20 mg PO DAILY famotidine 40 mg Tablet 40 mg PO DAILY sertraline 100 mg Tablet 100 mg PO DAILY levothyroxine 75 mcg Tablet 75 mcg PO DAILY aspirin 81 mg Tablet,Chewable 81 mg PO DAILY bupropion HCl 150 mg Tablet Extended Release 24 Hr 150 mg PO BEDTIME cyclobenzaprine 10 mg Tablet 10 mg PO TID PRN (Reason: Spasms) Entresto 49-51 mg Tablet 1 tab PO BID ondansetron HCl [Zofran] 4 mg tablet 4 mg PO Q6H PRN (Reason: nausea and vomiting) Qty: 20 0RF Advair Diskus 500-50 mcg/dose blister with device 1 inh inhalation BID Qty: 60 0RF Spiriva with HandiHaler 18 mcg capsule, w/inhalation device 1 cap inhalation DAILY Qty: 30 0RF Rx Instructions: puncture 1 cap using device; one dose = 2 inhalations Discharge Orders: Discharge ED (Routine); Ordered 04/18/23 Ordered By: Jonathan Scott Referrals: Welch,Acacia, VP [employer] [Primary Care Provider] - 1 week Patient Instructions: Hypokalemia (ED), Chronic Cough (ED), Cold Symptoms (ED) Activity Restrictions/Additional Instructions: please take your medicine as prescribed. Please follow-up with your family practice physician within next 7 to 10 days for further evaluation and treatment and rechecking of your potassium. Coding Level of Care Code ED Rodding Anode Worker for Oscar Yoon
[2023-04-18 19:59] LABS: Basophils % 0.4 %; Eosinophils # 0.3 10^3/uL (0.0-0.8); Eosinophils % 3.5 %; Hematocrit 42.2 % (36-47); Lymphocytes # 1.4 10^3/uL (0.8-4.8); Mean Corpuscular HGB Conc 32.2 g/dL (30-55); Mean Corpuscular Hemoglobin 28.9 pg (27-33); Mean Corpuscular Volume 89.6 fl (85-98); Mean Platelet Volume 10.6 fL (7.4-10.4); Monocytes # 0.6 10^3/uL (0.2-0.9); Monocytes % 6.7 %; Neutrophils # 6.59 10^3/uL (1.8-7.7); Neutrophils % 73.1 %; Nucleated Red Blood Cells % 0 %; Platelet Count 181 10^3/cmm (157-399); Red Blood Count 4.71 10^6/uL (3.85-5.65); Red Cell Distribution Width 14.4 % (12.1-15.1); White Blood Count 9.02 10^3/uL (3.29-11.43)
[2023-04-18 20:03] VITALS: BP 195/108
[2023-04-18] MEDS: cloNIDine 0.1 mg Tablet 0.2 MG PO (20:03)
[2023-04-18 20:05] VITALS: BP 195/108; PULSE 74; O2SAT 94
[2023-04-18 20:12] LABS: Troponin(5th) Baseline 31 ng/L (0-10)
[2023-04-18 20:21] LABS: Alanine Aminotransferase 9 U/L (0-33); Albumin Level 4.2 g/dL (3.5-5.2); Alkaline Phosphatase 98 U/L (35-105); Anion Gap 16.6 (5-19); Aspartate Amino Transferase 13 U/L (0-32); Blood Urea Nitrogen 13 mg/dL (8-23); Calcium 9.3 mg/dL (8.5-10.5); Carbon Dioxide 27 mmol/L (22-29); Chloride 100 mmol/L (98-107); Globulin 3.1 g/dL (1.3-4.6); Glucose 169 mg/dL (65-115); NT Pro B Type Natriuretic Pept 3839 pg/mL (0-125); Osmolality Calculated 296 mOsm/kg (285-295); Sodium 141 mmol/L (136-145); Total Protein 7.3 g/dL (6.6-8.7)
[2023-04-18 20:41] LABS: Potassium 2.6 mmol/L (3.5-5.1)
[2023-04-18 20:47] VITALS: BP 195/108; PULSE 79; O2SAT 94
[2023-04-18 20:56] VITALS: BP 195/108
[2023-04-18] MEDS: ondansetron 2 mg/ML SDV 2 mL 4 MG IVP (20:56)
[2023-04-18] MEDS: cloNIDine 0.1 mg Tablet PO (20:56)
[2023-04-18] MEDS: potassium chloride ER 20 mEq Tablet 40 MEQ PO ×2 (20:56→21:51)
--- NOTE | 2023-04-18 21:06 | ECG_ITS ---
[facility] Test Date: 2023-04-18 Pat Name: eWndy Dockery Department: Room: Gender: Female Senior Financial Consultant: : 1950 Requested By: Jonathan Scott Order Number: [id number] Ilana MD: Charisma Elam M.D. Measurements Intervals [place] Rate: 70 P: 86 [place]: 272 QRS: 264 QRSD: 188 T: 87 QT: 497 QTc: 536 Interpretive Statements ELECTRONIC ATRIAL PACEMAKER ELECTRONIC VENTRICULAR PACEMAKER ABNORMAL RHYTHM ECG Compared to ECG 04/18/2023 19:25:38 No significant changes Electronically Signed On 04-19-2023 6:54:16 MOTOR CHECKER by Charisma Elam M.D. [id number] f
[2023-04-18 21:33] LABS: Troponin 5 2HR 29.95 ng/L (0-10)
[2023-04-18 21:34] LABS: Troponin 5 2HR Delta -1.05 ABS# (0-10)
[2023-04-18 21:57] VITALS: BP 180/80; PULSE 73; RESP 18; O2SAT 92
--- NOTE | 2023-04-18 22:11 | PC.NURSE ---
Dr Scott notified of dc vitals and stated that it was okay to dc with vitals.
== END 2023-04-18 22:11 | disposition home or self-care (01) ==
PROVIDERS: Emergency Provider Emergency Medicine; PCP Nurse Practitioner Family
DX: R05.9 Cough, unspecified (principal); E87.6 Hypokalemia; Z79.4 Long term (current) use of insulin; Z79.82 Long term (current) use of aspirin; E11.9 Type 2 diabetes mellitus without complications; Z95.0 Presence of cardiac pacemaker; I10 Essential (primary) hypertension; I25.2 Old myocardial infarction
CPT/HCPCS: 71045; 80053; 83735; 83880; 84484; 85025; 93005; 99285; J2405

== ENCOUNTER 2023-06-18 15:13 | Outpatient (CLI) | payer MEDICARE, SELFPAY ==
--- NOTE | 2023-06-18 15:29 | XR_ITS ---
WS: [id number] Lumbar spine, AP view, lateral view and flexion, extension and neutral position, 06/18/2023 Clinical Data: SCOLIOSIS Comparison: Lumbar spine, 09/28/2019 Findings: No compression fractures or subluxation is seen. No disc space narrowing is seen. The transverse proc esses and SI joints are normal. There is osteoarthritis of the anterior vertebral bodies L1-L5 along with the lower thoracic vertebra l bodies. No scoliosis is seen. On flexion and extension there is no subluxation. Impression: 1. 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 2. Negative for limitation of motion on flexion or extension. 3. Negative for scoliosis.
--- NOTE | 2023-06-18 15:29 | XR_ITS ---
WS: [id number] Thoracic spine, AP and lateral views, 06/18/2023 Clinical Data: SCOLIOSIS Comparison: None. Findings: No compression fractures are seen. There is degenerative disc narrowing at all the thoracic vertebral body levels. There is no scoliosis. There is osteoporosis and osteoarthritis of the thoracic vertebr al bodies. There are permanent pacemaker wires which overlap the thoracic vertebral bodies. There is a right upper quadrant clip from a cholecystectomy. Impression: 1. Degenerative disc narrowing at all thoracic vertebral body levels. 2. Osteoarthritis and osteoporosis of the thoracic vertebral bodies.
== END 2023-06-18 15:14 | disposition home or self-care (01) ==
LOC: RAD 15:17
PROVIDERS: PCP Nurse Practitioner Family; Visit Provider General Practice
DX: M41.9 Scoliosis, unspecified (principal); M51.34 Other intervertebral disc degeneration, thoracic region; M48.04 Spinal stenosis, thoracic region; M47.814 Spondylosis without myelopathy or radiculopathy, thoracic region; M81.0 Age-related osteoporosis without current pathological fracture; M47.816 Spondylosis without myelopathy or radiculopathy, lumbar region
CPT/HCPCS: 72070; 72110

== ENCOUNTER → 2024-02-17 08:52 | Outpatient (BNVA) | payer MEDICARE, SELFPAY | PROVIDERS: PCP Nurse Practitioner Family; Visit Provider Nurse Practitioner Family | DX: I10 Essential (primary) hypertension (principal); E11.9 Type 2 diabetes mellitus without complications | CPT/HCPCS: 80053; 80061; 81000; 82043; 83036; 84443 ==

== ENCOUNTER 2024-09-07 17:08 | Emergency (ER) | payer MEDICARE, SELFPAY ==
[2024-09-07 17:25] VITALS: BP 182/94; PULSE 84; TEMP 36.6; O2SAT 95; BMI 33.6
--- NOTE | 2024-09-07 17:47 | XRR_ITS ---
PROCEDURE INFORMATION: Exam: XR Chest Exam date and time: 09/07/2024 5:49 PM Age: 74 years old Clinical indication: Cough and shortness of breath; Prior surgery; Surgery date: 6+ months; Surgery type: Pacer TECHNIQUE: Imaging protocol: Radiologic exam of the chest. Views: 1 view. COMPARISON: CR XR chest 1V portable [id number] 04/18/2023 8:09 PM FINDINGS: Tubes, catheters and devices: Multilead cardiac pacemaker device overlying the left chest wall. Lungs: Adjacent atelectasis and/or scarring at the left lung base. The remaining lungs are clear. Pleural spaces: Small left-sided pleural effusion. No sizable right-sided pleural effusion or pneumothorax. Heart/Mediastinum: Mild cardiomegaly. Bones/joints: Unremarkable. XR/XR chest 1V portable [id number] IMPRESSION: As above.
--- NOTE | 2024-09-07 17:50 | W.ED.SOB ---
HPI - SOB/Dyspnea General: Chief Complaint: Upper Respiratory Infection Stated Complaint: cough/ SOB Time Seen by Provider: 09/07/24 17:40 History of Present Illness: HPI Narrative: 74-year-old female presents with feeling of shortness of breath that she cannot catch her breath patient was seen by her primary care provider about 4 days ago and started on antibiotic, inhaler and steroids. She was told that she had COPD. Patient denies fever, chills. Associated symptoms: Deny abdominal pain, chest pain, fever(s), nausea, palpitations or vomiting Related Data Home Medications ?Medication ?Instructions ?Recorded ?Confirmed bupropion HCl 150 mg 24 hr tablet, 150 mg PO BEDTIME 06/17/19 02/17/24 extended release carvedilol 25 mg tablet 25 mg PO BID 06/17/19 02/17/24 famotidine 40 mg tablet 40 mg PO DAILY 06/17/19 02/17/24 levothyroxine 75 mcg tablet 75 mcg PO DAILY 06/17/19 02/17/24 sertraline 100 mg tablet 100 mg PO DAILY 06/17/19 02/17/24 cyclobenzaprine 10 mg tablet 10 mg PO TID PRN Spasms 06/18/19 02/17/24 sacubitril 49 mg-valsartan 51 mg 1 tab PO BID 06/18/19 02/17/24 tablet (Entresto) spironolactone 25 mg tablet 25 mg PO DAILY 07/05/22 02/17/24 empagliflozin 10 mg tablet 10 mg PO DAILY 03/19/23 02/17/24 (Jardiance) donepezil 5 mg tablet mg PO 02/17/24 02/17/24 hydrocodone 7.5 mg-acetaminophen tab PO 02/17/24 02/17/24 325 mg tablet hydroxyzine pamoate 25 mg capsule mg PO 02/17/24 02/17/24 oxybutynin chloride 5 mg mg PO 02/17/24 02/17/24 tablet,extended release 24 hr albuterol sulfate 90 mcg/actuation inhalation 08/24/24 08/24/24 aerosol inhaler Previous Rx's ?Medication ?Instructions ?Recorded pen needle, diabetic 31 gauge x #100 ea 11/24/2010/02 (BD Ultra-Fine Short Pen Needle) ondansetron HCl 4 mg tablet 4 mg PO Q6H PRN nausea and 06/15/21 (Zofran) vomiting #20 tabs 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 sensor #5 ea 03/19/23 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 meter,continuous #1 ea 03/05/24 flash glucose sensor (FreeStyle #5 kits 03/24/24 Clark 2 Sensor kit) insulin glargine 100 unit/mL (3 59 unit (0.59 mL) SUBCUT .at 08/05/24 mL) subcutaneous pen (Lantus bedtime #15 mL Solostar U-100 Insulin) pen needle, diabetic 32 gauge x #100 ea 08/21/24 (TechLITE Pen Needle) flash glucose scanning reader #1 ea 08/25/24 (FreeStyle Clark 2 Brilliant) Allergies Allergy/AdvReac Type Severity Reaction Status Date / Time No Known Allergies Allergy Verified 09/07/24 17:33 Review of Systems Const: Denies: fever(s) or chills Card: Denies: chest pain or palpitations Resp: Reports: dyspnea and wheezing GI: Denies: abdominal pain, nausea or vomiting Skin/Breast: Denies: rash or pruritus Neuro: Denies: headache(s) Psych: Reports: anxiety PFSH ED PFSH: Medical History Encephalopathy Mild cognitive impairment Transient neurological symptoms Transient neurological symptoms Hypokalemia COVID-19 Renal insufficiency Hypothyroidism On anticoagulant therapy Depression Diabetes mellitus Heart disease Myocardial infarction Hypertension Migraine Sleep apnea Thyroid disease Hx of cardiac pacemaker Surgical History Hx of cholecystectomy Hx of hysterectomy Family History Other Diabetes Heart disease Social History Smoking and tobacco/nicotine status: former use of tobacco/nicotine Alcohol intake: never Substance/Drug Use: never Physical Exam Const: COMMON NORMALS: no acute distress, patient oriented x3 and alert Resp: COMMON NORMALS: normal respiratory effort and No use of accessory muscles AUSCULTATION: diminished lung sounds (mild ) diffuse Extremity: COMMON NORMALS: normal to inspection Neuro: COMMON NORMALS: patient oriented x3 and no focal motor deficits SENSORIUM/ORIENTATION: Yes alert Psych: COMMON NORMALS: mental status grossly normal and speech normal SPEECH: Yes normal speech Course Vital Signs: Vital signs: Vital Signs Temperature 97.9 F 09/07/24 17:25 Pulse Rate 74 09/07/24 19:22 Respiratory Rate 16 09/07/24 19:22 Blood Pressure 175/85 09/07/24 19:22 Pulse Oximetry 95 09/07/24 19:22 Oxygen Delivery Me thod Room Air 09/07/24 18:41 MDM - SOB/Dyspnea Medical Decision Making Patient is x-rays were reviewed and shows no acute findings. Patient was given additional DuoNeb while in the ER and felt a lot better. She is already on appropriate medications for COPD by her primary care provider. Her O2 saturations were never below 95% on room air. Discussed with her the need to follow-up with her primary care provider in a couple days for recheck. She is stable and discharged home Lab Data Labs/Radiology: Radiology Impressions Chest X-Ray 09/07/24 17:47 IMPRESSION: As above. All radiology interpretation(s) finalized by discharge Discharge Plan Discharge Patient Disposition: Home Clinical Impression: Bronchitis Condition: Stable Prescriptions: No Action Jardiance 10 mg tablet 10 mg PO DAILY (DME) 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 sensor Device See Rx Instructions .Route Qty: 5 1RF Rx Instructions: As directed spironolactone 25 mg tablet 25 mg PO DAILY oxybutynin chloride 5 mg tablet extended release 24hr PO hydroxyzine pamoate 25 mg capsule PO hydrocodone-acetaminophen 7.5-325 mg tablet PO donepezil 5 mg tablet PO albuterol sulfate 90 mcg/actuation HFA aerosol inhaler inhalation (DME) pen needle, diabetic [BD Ultra-Fine Short Pen Needle] 31 gauge x 5/16 needle See Rx Instructions .Route Qty: 100 5RF Rx Instructions: As directed (DME) 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 meter,continuous Misc See Rx Instructions .Route Qty: 1 0RF Rx Instructions: As directed (DME) FreeStyle Clark 2 Sensor Kit See Rx Instructions .ROUTE .COMPLEX Qty: 5 1RF Dose Instruction: USE directed, CHANGE every 14 DAYS. Rx Instructions: USE directed, CHANGE every 14 DAYS. insulin glargine [Lantus Solostar U-100 Insulin] 100 unit/mL (3 mL) insulin pen 59 unit SUBCUT .at bedtime Qty: 15 2RF (DME) pen needle, diabetic [TechLITE Pen Needle] 32 gauge x 5/32 needle See Rx Instructions .Route Qty: 100 0RF Rx Instructions: use with insulin (DME) FreeStyle Clark 2 Brilliant Misc See Rx Instructions .Route Qty: 1 0RF Rx Instructions: As directed carvedilol 25 mg Tablet 25 mg PO BID famotidine 40 mg Tablet 40 mg PO DAILY sertraline 100 mg Tablet 100 mg PO DAILY levothyroxine 75 mcg Tablet 75 mcg PO DAILY bupropion HCl 150 mg Tablet Extended Release 24 Hr 150 mg PO BEDTIME cyclobenzaprine 10 mg Tablet 10 mg PO TID PRN (Reason: Spasms) Entresto 49-51 mg Tablet 1 tab PO BID ondansetron HCl [Zofran] 4 mg tablet 4 mg PO Q6H PRN (Reason: nausea and vomiting) Qty: 20 0RF Discharge Orders: Discharge ED (Routine); Ordered 09/07/24 Ordered By: Vijay Coronado Referrals: Yuri,KEITH Roger [Primary Care Provider] - Discharge Diet: Usual diet Discharge Activity: Resume usual activity Patient Instructions: Bronchitis (Acute) - Adult, Opioid Safety, Pain Management Activity Restrictions/Additional Instructions: Please follow-up with your primary care provider in about 2 or 3 days for recheck of your symptoms. Please use your inhaler about every 6 hours as needed. Print Language: Tuvaluan Coding Level of Care Code ED Job Coach/Job Developer for Oscar Yoon
[2024-09-07] MEDS: ipratropium-albuterol 3 mL Neb INHALATION (18:14)
[2024-09-07 18:17] VITALS: PULSE 70; RESP 18; O2SAT 95
[2024-09-07 18:23] VITALS: PULSE 95
[2024-09-07 18:41] VITALS: BP 178/94; PULSE 70; RESP 16; O2SAT 95
[2024-09-07 19:22] VITALS: BP 175/85; PULSE 74; RESP 16; O2SAT 95
== END 2024-09-07 19:14 | disposition home or self-care (01) ==
PROVIDERS: Emergency Provider Student in an Organized Health Care Education/Training Program; PCP Nurse Practitioner Family
DX: J40 Bronchitis, not specified as acute or chronic (principal); Z79.4 Long term (current) use of insulin; Z87.891 Personal history of nicotine dependence; Z95.0 Presence of cardiac pacemaker; I10 Essential (primary) hypertension
CPT/HCPCS: 71045; 94640; 99283; J9999

== ENCOUNTER 2025-01-29 22:25 | Inpatient (IN) | payer MEDICARE, SELFPAY ==
--- OUTSIDE RECORDS SUMMARY | 2024-11-12 05:00 | XMS_ITS ---
Author Organization [facility] Address [address] [place] [address] Care Team Providers Care Travel Professional Name Role Phone Welch Acacia PARKER Primary Care Provider Unavailab Henrique Tabor Unavailable [phone] Fay Fermin Unavailable [phone] REASON FOR VISIT 2 month f/u Social [...] No Encounters Encounter Location Date Provider Diagnosis [facility] Interventional Pain Management [address] [address] 11/12/2024 Fay Fermin Chronic pain syndrom e [...] abnormalities of gait and mobility R26.9 and retirement (current) use of opiate analgesic Z79.891 Assessments [...] gait and mobility (ICD-10 - R26.9) 11/12/2024 retirement (current) use of opiate analgesic (ICD-10 - Z79.891) Plan Of Treatment Next Appt Details Provider Name:Fay bueno, 02/05/2025 10:20:00 AM, [address] [place], [address], History and Physical Notes * HPI (History of Present Illness) Category Sub-Category Detail Notes Category Not es Pain Details Pain Location . , neck, hedaches, left ar m, left shoulder Quality . , Aching, throbbin g, tender, [id number] Severity of pain at its worst . [...] . , Will be sent for confirmation [place] Prescription Monitoring Program . , [place] JUMP IRON MACHINE PRESSER found to be consistent with treatment history, reviewed today COMM (Current Opioid Misuse Measure) Les s than 9 : indicates low risk of abuse behaviors Treatment History Test undergone in the past . , 06/18 XRay Lumbar Past medication you have taken . , [place] 7.5 #120 Filled 06/20/2024 Treatments you have had . , None IPMA Progress Notes * Wendy DOCKERYDOB:1949 (74 yo F)Acc No.[id number]:11/12/2024 Progress Notes Patient: Wendy Kilgore Provider: ROXY Edwards :1950 A ge:74 Y S ex:Female Date:11/12/2024 Address[address] Pcp:KEITH More Subjective: * Chief Complaints: * 2 month f/u * HPI: P ain Details: Pain Location . , neck, hedaches, left arm, left shoulder.? Quality . , Aching, throbbing, tender, [id number].? Severity of pain at its worst . [...] . , Will be sent for confirmation. [place] Prescription Monitoring Program . , [place] JUMP IRON MACHINE PRESSER found to be consistent with treatment history, reviewed today. T reatment History: Test undergone in the past . , 06/18/23 XRay Lumbar. Past medication you have taken . , Steedman 7.5 #120 Filled 06/20/2024. Treatments you have [...] Electronic signature of Marleen Fermin APRN on 01/29/2025 at 10:35 PM CDT Sign off status: Pending * Provider: Milly Fermin, ROXY Date: 0 11/12/2024 Generated for Charles Heath/Nasreen on: 0 01/29/2025 10:35 PM CDT
[2025-01-29 22:35] VITALS: BP 110/63; PULSE 70; RESP 16; TEMP 36.4; O2SAT 97; BMI 33.6
--- OUTSIDE RECORDS SUMMARY | 2025-01-29 22:35 | XMS_ITS | Patient Health Record ---
Author Organization [facility] Address [address] [place] [address] Care Team Providers Care Dog Or Animal Sitter Name Role Phone Welch Acacia PARKER Primary Care Provider Unavailab vinod Torotiffany Henrique Unavailable [phone] Migration, Provider Unavailable Unavailable Kemal Potts Unavailable [phone] Carol Lebron Unavailable [phone] Fay Fermin Unavailable [phone] Allergies No Known Allergies Results Component Value Reference Range Flag Notes Urine Drug Screen (cup read) - [id number] Reviewed date:11/23/2024 11:43:55 AM Interpretation: Performing Lab: Notes/Report: OPI Pos zzzUrine Drug Screen (confir mation by instrument) - [id number] Reviewed date:05/26/2024 01:46:58 PM Interpretation: Performing Lab: Notes/Report: Urine Confirmation Panel (in strument) - [id number] Reviewed date:12/09/2024 10:42:46 AM Interpretation: Performing Lab: Notes/Report: 6-Acetylmorphine 0 <6 ng/mL N This melania t was developed and its performance characteristics determined by [facility]. It has not been cleared or approved by the U.S. Food and Drug Administration. 7-Aminoclonazepam 0 <60 ng/mL N This te st was developed and its performance characteristics determined by [facility]. It has not been cleared or approved by the U.S. Food and Drug Administration. Alprazolam 0 <60 ng/mL N This test was developed and its performance characteristics determined by [facility]. It has not been cleared or approved by the U.S. Food and Drug Administration. Amphetamine 0 <75 ng/mL N This test was developed and its performance characteristics determined by [facility]. It has not been cleared or approved by the U.S. Food and Drug Administration. aOH-Alprazolam 0 <60 ng/mL N This test was developed and its performance characteristics determined by [facility]. It has not been cleared or approved by the U.S. Food and Drug Administration. Buprenorphine 0.0 <7.5 ng/mL N This test w as developed and its performance characteristics determined by [facility]. It has not been cleared or approved by the U.S. Food and Drug Administration. Norbuprenorphine 0.0 <37.5 ng/mL N This te st was developed and its performance characteristics determined by [facility]. It has not been cleared or approved by the U.S. Food and Drug Administration. Carisoprodol 0 <75 ng/mL N This test wa s developed and its performance characteristics determined by [facility]. It has not been cleared or approved by the U.S. Food and Drug Administration. Codeine 0 <75 ng/mL N This test was developed and its performance characteristics determined by [facility]. It has not been cleared or approved by the U.S. Food and Drug Administration. EDDP 0 <75 ng/mL N This test was developed and its performance characteristics determined by [facility]. It has not been cleared or approved by the U.S. Food and Drug Administration. Fentanyl 0 <6 ng/mL N This test was developed and its performance characteristics determined by [facility]. It has not been cleared or approved by the U.S. Food and Drug Administration. Hydrocodone 1325 <75 ng/mL H This test was developed and its performance characteristics determined by [facility]. It has not been cleared or approved by the U.S. Food and Drug Administration. Hydromorphone 856 <75 ng/mL H This test w as developed and its performance characteristics determined by [facility]. It has not been cleared or approved by the U.S. Food and Drug Administration. Lorazepam 0 <60 ng/mL N This test was developed and its performance characteristics determined by [facility]. It has not been cleared or approved by the U.S. Food and Drug Administration. MDMA 0 <75 ng/mL N This test was developed and its performance characteristics determined by [facility]. It has not been cleared or approved by the U.S. Food and Drug Administration. Meperidine 0.0 <37.5 ng/mL N This test was developed and its performance characteristics determined by [facility]. It has not been cleared or approved by the U.S. Food and Drug Administration. Meprobamate 0 <75 ng/mL N This test was developed and its performance characteristics determined by [facility]. It has not been cleared or approved by the U.S. Food and Drug Administration. Methamphetamine 0 <75 ng/mL N This test was developed and its performance characteristics determined by [facility]. It has not been cleared or approved by the U.S. Food and Drug Administration. Methadone 0 <75 ng/mL N This test was developed and its performance characteristics determined by [facility]. It has not been cleared or approved by the U.S. Food and Drug Administration. Morphine 0 <75 ng/mL N This test was developed and its performance characteristics determined by [facility]. It has not been cleared or approved by the U.S. Food and Drug Administration. Nordiazepam 0 <60 ng/mL N This test was developed and its performance characteristics determined by [facility]. It has not been cleared or approved by the U.S. Food and Drug Administration. Norfentanyl 0 <6 ng/mL N This test was developed and its performance characteristics determined by [facility]. It has not been cleared or approved by the U.S. Food and Drug Administration. Normeperidine 0.0 <37.5 ng/mL N This test was developed and its performance characteristics determined by [facility]. It has not been cleared or approved by the U.S. Food and Drug Administration. O-desmethyltramadol 0 <75 ng/mL N This test was developed and its performance characteristics determined by [facility]. It has not been cleared or approved by the U.S. Food and Drug Administration. Oxazepam 0 <60 ng/mL N This test was developed and its performance characteristics determined by [facility]. It has not been cleared or approved by the U.S. Food and Drug Administration. Oxycodone 0.0 <37.5 ng/mL N This test was developed and its performance characteristics determined by [facility]. It has not been cleared or approved by the U.S. Food and Drug Administration. Oxymorphone 0 <75 ng/mL N This test was developed and its performance characteristics determined by [facility]. It has not been cleared or approved by the U.S. Food and Drug Administration. Phencyclidine 0.0 <7.5 ng/mL N This test w as developed and its performance characteristics determined by [facility]. It has not been cleared or approved by the U.S. Food and Drug Administration. Tapentadol 0.0 <37.5 ng/mL N This test was developed and its performance characteristics determined by [facility]. It has not been cleared or approved by the U.S. Food and Drug Administration. Temazepam 0 <60 ng/mL N This test was developed and its performance characteristics determined by [facility]. It has not been cleared or approved by the U.S. Food and Drug Administration. Tramadol 0 <75 ng/mL N This test was developed and its performance characteristics determined by [facility]. It has not been cleared or approved by the U.S. Food and Drug Administration. Norhydrocodone 1533 <75 ng/mL H This test was developed and its performance characteristics determined by [facility]. It has not been cleared or approved by the U.S. Food and Drug Administration. Noroxycodone 0 <38 ng/mL N This test wa s developed and its performance characteristics determined by [facility]. It has not been cleared or approved by the U.S. Food and Drug Administration. Pregabalin 0 <225 ng/mL N This test was developed and its performance characteristics determined by [facility]. It has not been cleared or approved by the U.S. Food and Drug Administration. Gabapentin 0 <225 ng/mL N This test was developed and its performance characteristics determined by [facility]. It has not been cleared or approved by the U.S. Food and Drug Administration. Benzoylecgonine 0.0 <37.5 ng/mL N This melania t was developed and its performance characteristics determined by [facility]. It has not been cleared or approved by the U.S. Food and Drug Administration. 4-Hydroxy Xylazine 0 <25 ng/mL N This t est was developed and its performance characteristics determined by [facility]. It has not been cleared or approved by the U.S. Food and Drug Administration. Tox Results Reviewed date:12/09/2024 10:42:04 AM Interpretation: Performing Lab: Notes/Report: Reason For Referral Reason Eval and treat cervi jesús and lumbar PT Diagnosis 1 Chronic pain syndrom e (G89.4) Referral Organization [facility] Referring Provider First Name Kemal Referring Provider Last Name Katlyn Referring Provider Speciality [facility] Referral Priority Routine Reason referral for lumbar and cervical pain Diagnosis 1 Lumbar radiculopathy (M54.16) Diagnosis 2 Cervical radiculopat hy (M54.12) Referral Organization [facility] Referring Provider First Name Fay Referring Provider Last Name Zander Referring Provider Speciality Pain Medic ine Referred Provider [facility] Referred Provider Specialty Preventive M edicine Referral Priority Routine Medications Medication SIG (Take, Route, Frequency, Duration) Notes Start Date End Date Status Aspirin *Pick strength-form from [facility] for eRX* Unknown Sertraline *Reorder from [facility] for eRx and Interaction Alerts* Unknown oxyBUTYnin Chloride *Pick strength-form from [facility] for eRX* Unknown buPROPion HCl *Pick strength-form from [facility] for eRX* Unknown HYDROcodone-Acetaminop hen *Pick strength-form from [facility] for eRX* Unknown Famotidine *Pick strength-form from [facility] for eRX* Unknown Levothyroxine *Reorder from [facility] for eRx and Interaction Alerts* Unknown Jardiance *Pick strength-form from [facility] for eRX* Unknown cyclobenzaprine *Reorder from [facility] for eRx and Interaction Alerts* Unknown Carvedilol *Pick strength-form from [facility] for eRX* Unknown Entresto *Pick strength-form from [facility] for eRX* Unknown donepezil *Reorder from [facility] for eRx and Interaction Alerts* Unknown Spironolactone *Pick strength-form from [facility] for eRX* Unknown Social History Social History Additional Details Category [...] Smoking - No, Working currently? 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, 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/19 Active confirmed Problem Degeneration of lumbar intervertebral disc (32469355) Other intervertebral disc degeneration, lumbar region (M51.36) 11/13/19 Active confirmed Problem Abnormal gait (93743524) Unspecified abnormalities of gait and mobility (R26.9) 11/13/19 Active confirmed Problem Cervical radiculopathy (35426250) Cervical radiculopathy (M54.12) Active confirmed Problem Lumbar radiculopathy (445076384) Lumbar radiculopathy (M54.16) Active confirmed Problem Cervical disc disorder (787382505) DDD (degenerative disc disease), cervical (M50.30) Active confirmed Vital Signs Height-cm 157.48 cm 11/23/2024 Weight-kg 86.18 kg 11/23/2024 Height 62 in 11/23/2024 Weight 190 lbs 11/23/2024 BMI 34.75 kg/m2 11/23/2024 Encounters Encounter Location Date Provider Diagnosis [facility] [place] [address] [place] [address] 03/19/2024 Fay Fermin [facility] [place] [address] [place] [address] 05/21/2024 Henrique Sukhdev Chronic pain syndrom e G89.4 ; Other intervertebral disc degeneration, thoracic region M51.34 ; Degeneration of intervertebral disc of lumbar region with discogenic back pain M51.360 ; Spondylosis without myelopathy or radiculopathy, lumbosacral region M47.817 ; Scoliosis, unspecified M41.9 ; Unspecified abnormalities of gait and mobility R26.9 and escrow assistant (current) use of opiate analgesic Z79.891 [facility] [address] [address] 07/15/2024 Kemal Potts Chronic pain syndrom e G89.4 ; DDD (degenerative disc disease), cervical M50.30 ; Other intervertebral disc degeneration, thoracic region M51.34 ; Degeneration of intervertebral disc of lumbar region with discogenic back pain M51.360 ; Spondylosis without myelopathy or radiculopathy, lumbosacral region M47.817 and detention (current) use of opiate analgesic Z79.891 [facility] [address] [address] 09/17/2024 Fay Fermin Chronic pain syndrom e G89.4 [...] abnormalities of gait and mobility R26.9 and escrow assistant (current) use of opiate analgesic Z79.891 [facility] [address] [address] 11/23/2024 Henrique Santizo Chronic pain syndrom e G89.4 ; Other intervertebral disc degeneration, thoracic region M51.34 ; Degeneration of intervertebral disc of lumbar region with discogenic back pain M51.360 ; Spondylosis without myelopathy or radiculopathy, lumbosacral region M47.817 ; Scoliosis, unspecified M41.9 ; Unspecified abnormalities of gait and mobility R26.9 and detention (current) use of opiate analgesic Z79.891 [facility] 0 03/14/2024 Provider Migration [facility] 0 03/15/2024 Provider Migration [facility] [place] [address] [facility] [place] [address] 05/06/2024 Kemal Potts [facility] [address] [place] [address] 05/21/2024 Kemal Jenaesherrell [facility] [place] [address] [facility] [place] [address] 07/15/2024 Kemal Katlyn [facility] [place] [address] [facility] [place] [address] 09/15/2024 Fay Zander [facility] [place] [address] [facility] [place] [address] 09/17/2024 Carol Lewis e Lumbar radiculopathy M54.16 [facility] [place] [address] [facility] [place] [address] 11/18/2024 Kemal Potts [facility] [place] [address] [facility] [place] [address] 11/23/2024 Kemal Potts Assessments Encounter Date Diagnosis (ICD Code) Assessment Notes Treatment Notes Treatment Clinical Notes Section Notes 09/17/2024 Lumbar radiculopathy (ICD-10 - M54.16) 09/17/2024 Chronic pain syndrome (ICD-10 - G89.4) I had a nice discussion with the patient today regarding her chronic pain complaints. She states she has had a rough couple of months as she has been very sick with what sounds like COPD exacerbations. She does states she feels like she is heading in the right track with this now but is still struggling some. She has been in the hospital and doctors offices and on several antibiotics. She was supposed to start some physical therapy but states she had a bad experience where it was sent to. She states she would just like to go to the [facility] physical therapy. Therefore we will send the referral there for her. She denies any other changes since we last seen her any untoward side effects of the medication. She will return to clinic in 2 months to monitor for treatment effectiveness and compliance. The patient continues with chronic pain requiring treatment to help restore function and improve quality of life. Risks of opioid therapy as well as interaction of opioids with alcohol, illicit drugs, muscle relaxers, and other sedative medications are reviewed briefly with patient again today. The patient has trialed all other reasonable treatment options and uses the medication to alleviate pain in order to remain active and rest with less pain. No clinically relevant medication side effects are noted. Last UDS and AR INSTALLATION MANAGER reviewed today. Patient is advised that best long-term goals include increased activity, core strengthening, proper weight management, coping strategies, avoidance of painful triggers, and targeted interventional therapy. We will see the patient for routine follow up in accordance with all clinic policies. We did remind patient today of current guidelines to decrease opioid when possible. We will continue to stress nonopioid treatment. RECOMMEND PHYSICAL THERAPY TRIAL A physical therapy trial is being ordered for this patient. The goal of physical therapy is reduction in pain, as well as improvement in overall physical function and musculature. If physical therapy trial is unsuccessful, we will consider more invasive treatment options. The procedure and risks were discussed with the patient including but not limited to infection, bleeding, neurological complications, side effects from medications, no change in pain, worsening of pain, or even . We also discussed conservative options, surgical options, and medical management with patient as well. The patient indicates understanding and wishes to proceed with the recommended treatment approach. The patient was given written information about the procedure and all questions were answered. Refill HYDROcodone- Acetaminophe n Tablet, 7.5-325 MG, 1 tablet, Orally, every 6 hrs, As needed not to exceed 4 per day, 30 days, 120 Tablet, Start Date: 09/18/2024, Stop Date: 10/18/2024, Refills 0, Notes to Pharmacist: Fill on 09/18/24 Refill HYDROcodone- Acetaminophe n Tablet, 7.5-325 MG, 1 tablet, Orally, every 6 hrs, As needed not to exceed 4 per day, 30 days, 120 Tablet, Start Date: 10/17/2024, Stop Date: 11/16/2024, Refills 0, Notes to Pharmacist: Fill on 10/17/24 due to Saturday closure 09/17/2024 DDD (degenerative disc disease), cervical (ICD-10 - M50.30) 07/15/2024 Chronic pain syndrome (ICD-10 - G89.4) I had a nice visit with the patient today regarding her chronic pain issues. She's complaining of more cervical pain and a portion of it appears more myofascial in nature. She still has quite a bit of tightness into her lumbar region as well. We discussed treatment options and at this point it would seem reasonable to get her setup with physical therapy to address both of these regions. We will place that referral and continue her medications unchanged. We will see her back in about 2 months. Refer to physical therapy for lumbar and cervical pain 07/15/2024 DDD (degenerative disc disease), cervical (ICD-10 - M50.30) 11/23/2024 Chronic pain syndrome (ICD-10 - G89.4) I had a nice discussion with patient today regarding her chronic pain complaints. She was previously supposed to do physical therapy but she states that no one has contacted her. We did contact the physical therapy department and they had not contacted her yet, but they are supposed to give her a call today to get her scheduled. Patient has been informed. For now, her medication will be continued and she will follow-up with us in a couple of months to discuss her progress with physical therapy and for a biannual visit with Dr. Potts. The patient continues with chronic pain requiring treatment to help restore function and improve quality of life. Risks of opioid therapy as well as interaction of opioids with alcohol, illicit drugs, muscle relaxers, and other sedative medications are reviewed briefly with patient again today. The patient has trialed all other reasonable treatment options and uses the medication to alleviate pain in order to remain active and rest with less pain. No clinically relevant medication side effects are noted. Last UDS and AR INSTALLATION MANAGER reviewed today. Patient is advised that best long-term goals include increased activity, core strengthening, proper weight management, coping strategies, avoidance of painful triggers, and targeted interventional therapy. We will see the patient for routine follow up in accordance with all clinic policies. We did remind patient today of current guidelines to decrease opioid when possible. We will continue to stress nonopioid treatment. 05/21/2024 Chronic pain syndrome (ICD-10 - G89.4) I had a nice discussion with the patient today regarding her chronic pain complaints. She denies any significant changes since her last visit. She reports that she still has constant pain but her medication does help to where her pain is more tolerable and she is more comfortable throughout the day. She denies any other significant changes and also denies any side effects to her medication. She is compliant with accurate pill count today and her last drug screen was consistent so refills will be provided to her today. She will follow-up with Dr. Potts in a couple of months for a biannual visit. 05/21/2024 Other intervertebral disc degeneration, thoracic region (ICD-10 - M51.34) I had a nice discussion with the patient today regarding her chronic pain complaints. She denies any significant changes since her last visit. She reports that she still has constant pain but her medication does help to where her pain is more tolerable and she is more comfortable throughout the day. She denies any other significant changes and also denies any side effects to her medication. She is compliant with accurate pill count today and her last drug screen was consistent so refills will be provided to her today. She will follow-up with Dr. Potts in a couple of months for a biannual visit. 05/21/2024 Degeneration of intervertebral disc of lumbar region with discogenic back pain (ICD-10 - M51.360) I had a nice discussion with the patient today regarding her chronic pain complaints. She denies any significant changes since her last visit. She reports that she still has constant pain but her medication does help to where her pain is more tolerable and she is more comfortable throughout the day. She denies any other significant changes and also denies any side effects to her medication. She is compliant with accurate pill count today and her last drug screen was consistent so refills will be provided to her today. She will follow-up with Dr. Potts in a couple of months for a biannual visit. 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 She denies any significant changes since her last visit. She reports that she still has constant pain but her medication does help to where her pain is more tolerable and she is more comfortable throughout the day. She denies any other significant changes and also denies any side effects to her medication. She is compliant with accurate pill count today and her last drug screen was consistent so refills will be provided to her today. She will follow-up with Dr. Potts in a couple of months for a biannual visit. 05/21/2024 Scoliosis, unspecified (ICD-10 - M41.9) I had a nice discussion with the patient today regarding her chronic pain complaints. She denies any significant changes since her last visit. She reports that she still has constant pain but her medication does help to where her pain is more tolerable and she is more comfortable throughout the day. She denies any other significant changes and also denies any side effects to her medication. She is compliant with accurate pill count today and her last drug screen was consistent so refills will be provided to her today. She will follow-up with Dr. Potts in a couple of months for a biannual visit. 11/23/2024 Spondylosis without myelopathy or radiculopathy, lumbosacral region (ICD-10 - M47.817) 07/15/2024 Spondylosis without myelopathy or radiculopathy, lumbosacral region (ICD-10 - M47.817) 09/17/2024 Spondylosis without myelopathy or radiculopathy, lumbosacral region (ICD-10 - M47.817) 09/17/2024 Unspecified dementia without behavioral disturbance (ICD-10 - F03.90) 07/15/2024 escrow assistant (current) use of opiate analgesic (ICD-10 - Z79.891) 11/23/2024 Scoliosis, unspecified (ICD-10 - M41.9) 05/21/2024 Unspecified abnormalities of gait and mobility (ICD-10 - R26.9) I had a nice discussion with the patient today regarding her chronic pain complaints. She denies any significant changes since her last visit. She reports that she still has constant pain but her medication does help to where her pain is more tolerable and she is more comfortable throughout the day. She denies any other significant changes and also denies any side effects to her medication. She is compliant with accurate pill count today and her last drug screen was consistent so refills will be provided to her today. She will follow-up with Dr. Potts in a couple of months for a biannual visit. 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 She denies any significant changes since her last visit. She reports that she still has constant pain but her medication does help to where her pain is more tolerable and she is more comfortable throughout the day. She denies any other significant changes and also denies any side effects to her medication. She is compliant with accurate pill count today and her last drug screen was consistent so refills will be provided to her today. She will follow-up with Dr. Potts in a couple of months for a biannual visit. 11/23/2024 Unspecified abnormalities of gait and mobility (ICD-10 - R26.9) 09/17/2024 Scoliosis, unspecified (ICD-10 - M41.9) 09/17/2024 Other intervertebral disc degeneration, lumbar region (ICD-10 - M51.36) 11/23/2024 detention (current) use of opiate analgesic (ICD-10 - Z79.891) RECOMMEND URINE TESTING TODAY Urine drug screening will be performed today to monitor compliance with opioid therapy or to serve as a baseline screen for a patient who may be a candidate for opioid therapy in the future, pending UDS results. We will monitor with in-office testing (rapid testing) today and review the results prior to dispensing prescription. All positive results will be sent for quantitative analysis to ensure accuracy and quantify amounts. Any expected positive results that return negative will also be sent for quantitative analysis. Any questionable read or any medication we cannot test for in the office confidently will be sent for quantitative analysis, as well. Patient has been made aware of this policy and agrees to abide by our urine testing policy. 09/17/2024 Unspecified abnormalities of gait and mobility (ICD-10 - R26.9) 09/17/2024 detention (current) use of opiate analgesic (ICD-10 - Z79.891) 07/15/2024 Other I, Wolfgang Van, am scribing for Dr. Kemal Potts. I, Dr. Kemal Potts, personally performed the services described in this documentation, as scribed by Wolfgang Van, and it is both accurate and complete. Plan Of Treatment Next Appt Details Provider Name:Fay Vonnie bueno, 02/05/2025 10:20:00 AM, [address] [place], [address], Insurance Providers Payer Name Payer Address Payer Phone Subscriber Number Group Number Insured Name Patient Relationship to Insured Coverage Start Date Coverage End Date UHC Medicare Dual Complete PPO [address] [address] [place] [address] [phone] [id number] Wendy Hyman Self - patient is the insured [address] [employer] [address] [address] [place] [address] [id number] Wendy Hyman Self - patient is the insured [place] Medicare [address] [address] [place] [address] [id number] Wendy Hyman Self - patient is the insured Medical (General) History Surgical History Surgery Date(Month/Year) Breast biopsy section Hysterectomy Pacemaker cholecystectomy
--- OUTSIDE RECORDS SUMMARY | 2025-01-29 22:35 | XMS_ITS | Clinical Summary ---
Author Organization [facility] Address [address] [place] [address] Phone Care Team Providers Care Crankshaft Balancer Name Role Phone Dpahney Ocampo MD Primary Care Provider Allergies No known active allergies Medications sertraline (ZOLOFT) 100 MG tablet Take 100 mg by mouth 1 (one) time each day 06/07/2020 Active Entresto 49-51 MG per tablet Take 1 tablet by mouth 2 (two) times a day 07/13/2020 Active potassium chloride (MICRO-K) 8 MEQ CR capsule Take 8 mEq by mouth in the morning and 8 mEq in the evening. 07/05/2020 Active levothyroxine (SYNTHROID, LEVOTHROID) 75 MCG tablet Take 1 tablet by mouth 1 (one) time each day 06/06/2020 Active Levemir FlexTouch 100 UNIT/ML injection Inject 45 Units under the skin at bed time 06/10/2020 Active HYDROcodone-paulo taminophen (NORCO) 7.5-325 MG per tablet TAKE 1 2TABS BY MOUTH EVERY 4 6HRS NEEDED FOR PAIN X30 DAYS, MAX 5/DAY, HOLD W/IN 4HRS OF SLEEP 07/05/2020 Active famotidine (PEPCID) 40 MG tablet Take 40 mg by mouth at night if needed 06/07/2020 Active cyclobenzaprine (FLEXERIL) 10 MG tablet Take 1 tablet by mouth 2 (two) times a day if needed 06/29/2020 Active carvedilol (COREG) 25 MG tablet Take 25 mg by mouth 2 (two) times a day 06/07/2020 Active buPROPion SR (WELLBUTRIN SR) 150 MG 12 hr tablet Take 2 tablets by mouth every night 06/06/2020 Active albuterol HFA (PROVENTIL HFA;VENTOLIN HFA) 108 (90 Base) MCG/ACT inhaler Inhale 1 puff 1 (one) time each day if needed 07/09/2020 Active hydrOXYzine (VISTARIL) 25 MG capsule 3 (three) times a day if needed 09/27/2021 Active oxybutynin XL (DITROPAN-XL) 5 MG 24 hr tablet Take 5 mg by mouth 1 (one) time each day 09/16/2023 Active donepezil (ARICEPT) 5 MG tablet Take 5 mg by mouth every night 10/09/2023 Active cetirizine (ZyrTEC ALLERGY) 10 MG tablet Take 10 mg by mouth 1 (one) time each day 01/31/2022 Active Empagliflozin 10 MG tablet Take 10 mg by mouth 1 (one) time each day 03/19/2023 Active Active Problems Problem Noted Date Diagnosed Date Vitamin D deficiency 01/14/2024 Type 2 diabetes mellitus wit h diabetic chronic kidney disease 01/14/2024 Urgency of urination 01/14/2024 Cardiomyopathy 01/14/2024 Essential (primary) hypertension 01/14/2024 Stage 3b chronic kidney disease 08/23/2020 Resolved Problems Problem Noted Date Diagnosed Date Resolved Date Chronic kidney disease, stage 2 (mild) 10/04/2021 01/14/2024 Family History Medical History Relation Comments Heart disease Father Diabetes Mother Heart disease Mother Hypertension Mother Kidney disease Mother Relation Status Comments Father Mother Social History Tobacco Use Types Packs/Day Years Used Date Smoking Tobacco: Former Smokeless Tobacco: Never Alcohol Use Standard Drinks/Week Comments Never 0 (1 standard drink = 0.6 oz pur e alcohol) Comments Unknown Sex and Gender Information Value Date Recorded Sex Assigned at Not on file Legal Sex Female 12:21 PM EST Gender Identity Not on file Sexual Orientation Not on file Last Filed Vital Signs Vital Sign Reading Time Taken Comments Blood Pressure 118/70 07/22/2024 10:40 AM CARBON PAPER COATING MACHINE SETTER Pulse 73 07/22/2024 10:40 AM CARBON PAPER COATING MACHINE SETTER Temperature 36.6 C (97.8 F) 08/23/2020 12:58 PM CDT Respiratory Rate - - Oxygen Saturation 98% 07/22/2024 10:40 AM CARBON PAPER COATING MACHINE SETTER Inhaled Oxygen Concentration - - Weight 85.9 kg (189 lb 6.4 oz) 07/22/2024 10:40 AM CARBON PAPER COATING 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 SETTER Height 160 cm (5' 3 ) 01/14/2024 10:48 AM CDT Body Mass Index 33.55 01/14/2024 10:48 AM CDT Plan of Treatment Health Maintenance Due Date Last Done Comments Breast Cancer Screening 1950 Pneumococcal Vaccine: 50+ Ye ars (1 of 2 - PCV) 1968 Colorectal Cancer Screening: Annual FOBT 1998 Colorectal Cancer Screening: Colonoscopy 1998 Colorectal Cancer Screening: Sigmoidoscopy 1998 Diabetes: Hemoglobin A1C 11/13/2023 Diabetes: Ophthalmology Exam 11/13/2023 Diabetes: Pedal Pulse Checked 11/13/2023 Diabetes: Sensory Foot Exam 11/13/2023 Diabetes: Visual Foot Exam 11/13/2023 Influenza Vaccine (#1) 2025 Hepatitis B Vaccine Aged Out No longe r eligible based on patient's age to complete this topic Insurance [address] [place] [id number] [facility] Medicare Care Teams Crankshaft Balancer Relationship Specialty Start Date End Date Daphney Ocampo MD [address] [address] PCP - General Family Medicine 01/14/24
--- OUTSIDE RECORDS SUMMARY | 2025-01-29 22:36 | XMS_ITS | Encounter Summary ---
Author Organization [facility], [facility] Address [address] [place] [address] Phone Care Team Providers Care Foam Cutting Supervisor Name Role Phone Daphney Ocampo MD Primary Care Provider Encounter Details Date Type Department Care Team (Late st Contact Info) Description 04/04/2020 Orders Only [facility] [address] [place] [address] Carlos Domínguez MD [address] [place] [address] Renal insufficiency Social History Tobacco Use Types Packs/Day Years Used Date Smoking Tobacco: Never Assessed Comments Unknown Sex and Gender Information Value Date Recorded Sex Assigned at Not on file Legal Sex Female 12:21 PM EST Gender Identity Not on file Sexual Orientation Not on file documented as of this encounter Plan of Treatment Not on file documented as of this encounter Visit Diagnoses Diagnosis Renal insufficiency documented in this encounter Care Teams Foam Cutting Supervisor Relationship Specialty Start Date End Date Daphney Ocampo MD [address] [place] [address] PCP - General Family Medicine 01/14/24 documented as of this encounter
--- NOTE | 2025-01-29 22:37 | ECG_ITS ---
[employer] [facility] Test Date: 2025-01-29 Pat Name: Wendy Dockery Department: Room: 254 Gender: Female Live Truck Operator: : 1950 Requested By: Jarad Todd Order Number: [id number] Preciado MD: Jhony De La Cruz M.D. Measurements Intervals [place] Rate: 69 P: 106 IL: 262 QRS: 241 QRSD: 205 T: 82 QT: 495 QTc: 534 Interpretive Statements ELECTRONIC ATRIAL PACEMAKER ELECTRONIC VENTRICULAR PACEMAKER ATRIAL-VENTRICULAR DUAL-PACED RHYTHM ABNORMAL RHYTHM ECG Compared to ECG 04/18/2023 21:06:12 No significant changes Electronically Signed On 01-30-2025 20:37:42 CDT by Jhony De La Cruz M.D. [email or web address]
--- OUTSIDE RECORDS SUMMARY | 2025-01-29 22:37 | XMS_ITS | Encounter Summary ---
Author Organization [facility], [facility] Address [address] [place] [address] Phone Care Team Providers Care Hydraulic Pile Hammer Operator Name Role Phone Daphney Ocampo MD Primary Care Provider Encounter Details Date Type Department Care Team (Late st Contact Info) Description 08/23/2023 Orders Only [facility] [address] [place] [address] Stage 3a chronic kidney disease (HCC) Social History Tobacco Use Types Packs/Day Years [...] as of this encounter Visit Diagnoses Diagnosis Stage 3a chronic kidney disease (HCC) documented in this encounter Care Teams Hydraulic Pile Hammer Operator Relationship Specialty Start Date End Date Daphney Ocampo MD [address] [place] [address] PCP - General Family Medicine 01/14/24 documented as of this encounter
--- OUTSIDE RECORDS SUMMARY | 2025-01-29 22:37 | XMS_ITS | Clinical Summary ---
Author Organization [facility] Address [address] [place] [address] Phone Care Team Providers Care Lockstitch Pocket Setter Name Role Phone Unavailable Primary Care Provider Unavailabl e Social History Tobacco Use Types Packs/Day Years Used Date Smoking Tobacco: Never Assessed Comments Unknown Sex and Gender Information Value Date Recorded Sex Assigned at Not on file Legal Sex Female 3:19 PM CDT Gender Identity Not on file Sexual Orientation Not on file Plan of Treatment Health Maintenance Due Date Last Done Comments DTAP/TDAP/TD VACCINES (1 - Tdap) 1968 COLORECTAL SCREENING 1994 Colorectal Cancer Screening 1994 FIT-DNA Q 3 years 1994 FIT/FOBT Q 1 year 1994 Flex Sig/CT Colonography Q 5 years 1994 PNEUMOCOCCAL VACCINE 50+ YEARS (1 of 1 - PCV) 05/18/19 99 ZOSTER VACCINE (1 of 2) 1999 OSTEOPOROSIS SCREENING 2014 RSV VACCINE (60+ or ) (1 - 1-dose 75+ series) 2024 INFLUENZA VACCINE (#1) 2024
[2025-01-30] VITALS (11 sets, daily range): BP systolic 123–180; BP diastolic 64–95; PULSE 69–82; RESP 14–18; TEMP 36.5–36.7; O2SAT 94–98; BMI 34.0
[2025-01-30 00:30] LABS: Hematocrit 41.0 % (36-47); Hemoglobin 13.50 g/dL (11.27-16.99); Mean Corpuscular HGB Conc 32.9 g/dL (30-55); Mean Corpuscular Hemoglobin 29.7 pg (27-33); Mean Corpuscular Volume 90.1 fl (85-98); Nucleated Red Blood Cells % 0 %; Platelet Count 131 10^3/cmm (157-399); Red Blood Count 4.55 10^6/uL (3.85-5.65); White Blood Count 7.36 10^3/uL (3.29-11.43)
[2025-01-30 00:32] LABS: Alanine Aminotransferase 10 U/L (0-33); Albumin Level 4.4 g/dL (3.5-5.2); Alkaline Phosphatase 74 U/L (35-105); Anion Gap 15.1 (5-19); Aspartate Amino Transferase 15 U/L (0-32); Blood Urea Nitrogen 24 mg/dL (8-23); Calcium 9.8 mg/dL (8.5-10.5); Carbon Dioxide 30 mmol/L (22-29); Chloride 96 mmol/L (98-107); Globulin 3.3 g/dL (1.3-4.6); Glucose 227 mg/dL (65-115); Osmolality Calculated 297 mOsm/kg (285-295); Potassium 3.1 mmol/L (3.5-5.1); Sodium 138 mmol/L (136-145); Total Protein 7.7 g/dL (6.6-8.7)
[2025-01-30 00:38] LABS: Creatinine Clr Calc Pharmacy 20.2317
--- NOTE | 2025-01-30 01:41 | XRR_ITS ---
PROCEDURE INFORMATION: Exam: XR Chest Exam date and time: 01/30/2025 1:49 AM Age: 74 years old Clinical indication: Other: General weakness; Prior surgery; Surgery date: 6+ months; Surgery type: Pacer TECHNIQUE: Imaging protocol: Radiologic exam of the chest. Views: 1 view. COMPARISON: CR (CHEST, ) 09/07/2024 5:49 PM FINDINGS: Tubes, catheters and devices: There is a left chest wall pacemaker again identified. The leads appear to be unchanged in position. Lungs: Unremarkable. No consolidation. Pleural spaces: Unremarkable. No pleural effusion. No pneumothorax. Heart/Mediastinum: Unremarkable. No cardiomegaly. Bones/joints: Unremarkable. XR/XR chest 1V portable [id number] IMPRESSION: No acute findings.
--- NOTE | 2025-01-30 01:41 | CTR_ITS ---
PROCEDURE INFORMATION: Exam: CT Head Without Contrast Exam date and time: 01/30/2025 2:01 AM Age: 74 years old Clinical indication: Other: General weakness TECHNIQUE: Imaging protocol: Computed tomography of the head without contrast. Radiation optimization: All CT scans at this facility use at least one of these dose optimization techniques: automated exposure control; mA and/or kV adjustment per patient size (includes targeted exams where dose is matched to clinical indication); or iterative reconstruction. COMPARISON: CT angio headneck* [id number] 07/25/2021 10:53 PM RADIATION DOSE METRICS: Total DLP (mGy-cm): 1036.25 FINDINGS: Brain: There is mild to moderate small vessel disease. There is no evidence of acute parenchymal hemorrhage, extra-axial collection, or acute infarction. There is no mass effect, midline shift, or downward herniation. Cerebral ventricles: No ventriculomegaly. Paranasal sinuses: Visualized sinuses are unremarkable. No fluid levels. Mastoid air cells: Visualized mastoid air cells are well aerated. Bones: Unremarkable. No acute fracture. Soft tissues: Unremarkable. CT/CT head wo con* [id number] IMPRESSION: Amnm-ui-mdhbfepi small vessel disease. No evidence of acute intracranial process.
[2025-01-30] MEDS: potassium chloride oral liq 20 mEq/15 mL UDC 40 MEQ PO (02:30)
[2025-01-30 02:35] LABS: Glucose Urine UA Trace (Normal); Nitrate Urine Negative (Negative); Specific Gravity, Urine 1.030 (1.005-1.030)
[2025-01-30 02:40] LABS: Add Urine Microscopic? YES
--- NOTE | 2025-01-30 02:50 | PM.HP ---
Providers/Chief Complaint Admitting Physician: Leonela LAWRENCE DO--seen after 12 midnight Primary Care Provider: Acacia Welch, KEITH Chief Complaint: SOB, Possibly Blood sugar, having trouble walking History of Present Illness Wendy Dockery is a 74 year old female with medical history significant for diabetes type 2 chronic renal failure on with a creatinine of 1.24 January 2024 now presenting with a higher creatinine of 2.5 a year later today January 2025. Patient presents because she could not void last time voided was at 4 PM yesterday. Patient also was noted to be somewhat confused at a hindu conference with associated weakness on this day. Symptomatology all started so suddenly on 1 day on the day of presentation. Prior to now patient does have a nephrology that she follows up with. Patient had been bladder scan was very little urine but 1 should be sent for urinalysis and urine culture. Is what 9 that patient upon being transferred to medical floor patient voided and does not have a Colin will like for the patient to void freely in the setting of urinary tract infection. Patient does have UTI. And I have initiated antibiotics I do not feel an need to consult candy polisher. Patient is having renal failure in the last 2 years and has 1 candy polisher this is just an acute on a chronic renal failure creatinine had gone up as documented above. And hopefully this will come back down to the baseline. Review of Systems Narrative: System review upon 10 organ reviewed were significant for genitourinary for acute renal failure on chronic Medications/Allergies Home Medications ?Medication ?Instructions ?Recorded ?Confirmed ?Last Taken ?Type bupropion HCl 150 mg 24 hr tablet, 150 mg PO BEDTIME 06/17/19 01/30/25 01/28/25 20:00 History extended release carvedilol 25 mg tablet 25 mg PO BID 06/17/19 01/30/25 01/29/25 09:00 History famotidine 40 mg tablet 40 mg PO DAILY 06/17/19 01/30/25 01/29/25 09:00 History levothyroxine 75 mcg tablet 75 mcg PO DAILY 06/17/19 01/30/25 01/29/25 09:00 History sertraline 100 mg tablet 100 mg PO DAILY 06/17/19 01/30/25 01/29/25 09:00 History cyclobenzaprine 10 mg tablet 10 mg PO TID PRN Spasms 06/18/19 01/30/25 06/17/19 History sacubitril 49 mg-valsartan 51 mg 1 tab PO BID 06/18/19 01/30/25 01/29/25 09:00 History tablet (Entresto) pen needle, diabetic 31 gauge x #100 ea 11/24/20 01/30/25 01/29/25 09:00 Rx 5/16 (BD Ultra-Fine Short Pen Needle) 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 sensor #5 ea 03/19/23 01/30/25 01/29/25 09:00 Rx empagliflozin 10 mg tablet 10 mg PO DAILY 03/19/23 01/30/25 01/29/25 09:00 History (Jardiance) donepezil 5 mg tablet 5 mg PO DAILY 02/17/24 01/30/25 01/29/25 09:00 History hydrocodone 7.5 mg-acetaminophen 1 tab PO Q6H PRN Pain 02/17/24 01/30/25 01/29/25 History 325 mg tablet hydroxyzine pamoate 25 mg capsule 25 mg PO TID PRN Itching 02/17/24 01/30/25 Unknown History oxybutynin chloride 5 mg 10 mg PO DAILY 02/17/24 01/30/25 01/29/25 09:00 History tablet,extended release 24 hr 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,vehicle refinisher,cont #1 ea 03/05/24 01/30/25 01/29/25 09:00 Rx flash glucose sensor (FreeStyle #5 kits 03/24/24 01/30/25 01/29/25 09:00 Rx Clark 2 Sensor kit) albuterol sulfate 90 mcg/actuation 1 puff inhalation Q4H PRN sob 08/24/24 01/30/25 Unknown History aerosol inhaler flash glucose scanning reader #1 ea 08/25/24 01/30/25 01/29/25 09:00 Rx (FreeStyle Clark 2 [place]) pen needle, diabetic 32 gauge x #100 ea 12/14/24 01/30/25 01/29/25 09:00 Rx 5/32 (TechLITE Pen Needle) insulin glargine 100 unit/mL (3 50 unit SUBCUT BEDTIME 01/30/25 01/30/25 01/29/25 09:00 History mL) subcutaneous pen (Lantus Solostar U-100 Insulin) potassium chloride 10 mEq 10 meq PO DAILY 01/30/25 01/30/25 01/29/25 09:00 History capsule,extended release Allergies Allergy/AdvReac Type Severity Reaction Status Date / Time No Known Allergies Allergy Verified 01/29/25 22:46 PFSH Acute PFSH: Medical History Encephalopathy Mild cognitive impairment Transient neurological symptoms Transient neurological symptoms Hypokalemia COVID-19 Renal insufficiency Hypothyroidism On anticoagulant therapy Depression Diabetes mellitus Heart disease Myocardial infarction Hypertension Migraine Sleep apnea Thyroid disease Hx of cardiac pacemaker Surgical History Hx of cholecystectomy Hx of hysterectomy Family History Other Diabetes Heart disease Social History Smoking and tobacco/nicotine status: former use of tobacco/nicotine Alcohol intake: never Substance/Drug Use: never Vitals/I&O/Wt Last Vital Signs Temp 97.6 F 01/29/25 22:35 Pulse 70 01/30/25 02:39 Resp 16 01/30/25 02:39 BP 134/67 01/30/25 02:39 Pulse Ox 97 01/30/25 02:39 O2 Del Method Room Air 01/30/25 02:39 Weight last 48 hrs Weight 86.183 kg Physical Exam Narrative: Patient is lying still with no complaints no pain the problem is patient cannot void. Patient had difficulty voiding only on this day of presentation. HEENT normocephalic atraumatic neck neck is supple cardiovascular heart rate is regular lungs are pretty much clear abdomen soft nontender nondistended unremarkable extremities are intact no edema has good pulses neurology has no focality lab studies lab studies reviewed and noted. Data 01/30/25 05:39 01/30/25 05:39 A&P Assessment and plan 1. Acute on chronic renal failure: 2. Diabetes mellitus: 3. Encephalopathy: 4. Mild cognitive impairment: 5. Hypothyroidism: 6. Anemia: Plan: Acute on chronic renal failure - IV hydration at this time and optimize what might be causing patient's renal failure - Treat underlying infection. Patient has UTI and is being treated at this time -Keep medication renal friendly -Continue IV fluid and follow up renal function for interval improvement -Patient had actually improved instantly with creatinine of 2.5 on presentation to a repeat of a 2.2. -Patient is now voiding UTI with confusion -Confusion or encephalopathy likely secondary to UTI and secondary to metabolic acidosis from acute on chronic renal failure -Gentle hydration -Follow-up cultures and optimize accordingly Dehydration -Gentle rehydration Hypokalemia 3.1 resolved -Replaced with current potassium at 3.8 corrected PDMP PDMP Reviewed: Last Reviewed 01/30/25 07:04 by Leonela Lawrence MD Attestations Medical Necessity Statement*: Patient with acute on chronic renal failure deserves at least 2 midnights to optimize care prior to a discharge. Coding Level of Care Code 58474 Diagnoses Acute on chronic renal failure N17.9; N18.9 Diabetes mellitus E11.9 Encephalopathy G93.40 Mild cognitive impairment G31.84 Hypothyroidism E03.9 Anemia D64.9 Time Spent (min) 60
[2025-01-30 02:52] LABS: UA Slide Review UA Slide Review Perf
--- NOTE | 2025-01-30 03:03 | W.ED.WEAKNES ---
HPI - Weakness General: Chief complaint: Weakness Stated complaint: SOB, Possibly Blood sugar, having trouble walking Time Seen by Provider: 01/30/25 01:03 History of Present Illness: Patient is a 74-year-old female who presents to the ED with acute onset difficulty walking and standing independently. Symptoms began abruptly at approximately 10:00 PM tonight while she was sitting on bleachers watching a football game. She reports she had to hold onto objects to ambulate and required assistance from bystanders. The patient states she was feeling well prior to symptom onset with no preceding illness. Her daughter, who accompanied her, notes the patient may have been slightly confused initially but appears more focused now. The patient denies fever, chest pain, abdominal pain, or headache. She reports chronic shortness of breath but denies any acute change in her respiratory status. She also denies recent illness exposure. The patient was reluctant to seek medical attention but was convinced by her daughter and sister due to the sudden nature of her symptoms. Related Data Home Medications ?Medication ?Instructions ?Recorded ?Confirmed bupropion HCl 150 mg 24 hr tablet, 150 mg PO BEDTIME 06/17/19 01/30/25 extended release carvedilol 25 mg tablet 25 mg PO BID 06/17/19 01/30/25 famotidine 40 mg tablet 40 mg PO DAILY 06/17/19 01/30/25 levothyroxine 75 mcg tablet 75 mcg PO DAILY 06/17/19 01/30/25 sertraline 100 mg tablet 100 mg PO DAILY 06/17/19 01/30/25 cyclobenzaprine 10 mg tablet 10 mg PO TID PRN Spasms 06/18/19 01/30/25 sacubitril 49 mg-valsartan 51 mg 1 tab PO BID 06/18/19 01/30/25 tablet (Entresto) empagliflozin 10 mg tablet 10 mg PO DAILY 03/19/23 01/30/25 (Jardiance) donepezil 5 mg tablet 5 mg PO DAILY 02/17/24 01/30/25 hydrocodone 7.5 mg-acetaminophen 1 tab PO Q6H PRN Pain 02/17/24 01/30/25 325 mg tablet hydroxyzine pamoate 25 mg capsule 25 mg PO TID PRN Itching 02/17/24 01/30/25 oxybutynin chloride 5 mg 10 mg PO DAILY 02/17/24 01/30/25 tablet,extended release 24 hr albuterol sulfate 90 mcg/actuation 1 puff inhalation Q4H PRN sob 08/24/24 01/30/25 aerosol inhaler insulin glargine 100 unit/mL (3 50 unit SUBCUT BEDTIME 01/30/25 01/30/25 mL) subcutaneous pen (Lantus Solostar U-100 Insulin) potassium chloride 10 mEq 10 meq PO DAILY 01/30/25 01/30/25 capsule,extended release Previous Rx's ?Medication ?Instructions ?Recorded pen needle, diabetic 31 gauge x #100 ea 11/24/20 5/16 (BD Ultra-Fine Short Pen Needle) 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 sensor #5 ea 03/19/23 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,robotype operator,cont #1 ea 03/05/24 flash glucose sensor (FreeStyle #5 kits 03/24/24 [place] 2 Sensor kit) flash glucose scanning reader #1 ea 08/25/24 (FreeStyle [place] 2 [place]) pen needle, diabetic 32 gauge x #100 ea 12/14/24 (TechLITE Pen Needle) Allergies Allergy/AdvReac Type Severity Reaction Status Date / Time No Known Allergies Allergy Verified 01/29/25 22:46 PFSH ED PFSH: Medical History Encephalopathy Mild cognitive impairment Transient neurological symptoms Transient neurological symptoms Hypokalemia COVID-19 Renal insufficiency Hypothyroidism On anticoagulant therapy Depression Diabetes mellitus Heart disease Myocardial infarction Hypertension Migraine Sleep apnea Thyroid disease Hx of cardiac pacemaker Surgical History Hx of cholecystectomy Hx of hysterectomy Family History Other Diabetes Heart disease Social History Smoking and tobacco/nicotine status: former use of tobacco/nicotine Alcohol intake: never Substance/Drug Use: never Physical Exam Const: GENERAL APPEARANCE: cooperative and ill appearing (mildly); not frail appearing HENMT: COMMON NORMALS: normocephalic, atraumatic and Normal external nose present HEAD & SCALP: normocephalic and atraumatic FACE & SINUS: normal facial exam and face symmetric NOSE: Normal external nose present Eye: COMMON NORMALS: Equal, round and reactive pupils present and EOMs intact bilaterally PUPIL: Yes Equal, round and reactive pupils present Neck/C-Spine: GENERAL: Yes trachea midline Chest: CHEST: Yes Symmetrical chest wall rise Resp: COMMON NORMALS: normal respiratory effort, No retractions, No use of accessory muscles and clear to auscultation bilaterally AUSCULTATION: clear to auscultation bilaterally Cardio: COMMON NORMALS: regular rate and regular rhythm RATE: regular rate RHYTHM: regular rhythm GI: COMMON NORMALS: Normal to inspection, nondistended, normoactive bowel sounds present Extremity: COMMON NORMALS: no pedal edema Neuro: SHAYE COMA SCALE: document GCS findings Shaye coma scale eye opening: Spontaneous Shaye coma scale verbal response: Orientated [place] coma scale motor response: Obey commands Shaye coma scale total score: 15 SENSORY EXAM: Yes extremities (intact) Psych: COMMON NORMALS: speech normal SPEECH: Yes normal speech Skin: COMMON NORMALS: no rashes or lesions noted GENERAL SKIN EXAM: no rashes or lesions noted Course Vital Signs: Vital signs: Vital Signs Temperature 97.8 F 01/30/25 04:00 Pulse Rate 69 01/30/25 04:00 Respiratory Rate 16 01/30/25 04:00 Blood Pressure 128/64 01/30/25 04:00 Pulse Oximetry 96 01/30/25 04:00 Oxygen Delivery Me thod Room Air 01/30/25 04:13 MDM - Weakness Medical Decision Making 74-year-old female with a history of diabetes. She also has a history of renal insufficiency. She is presenting with sudden onset mild confusion, generalized weakness. She is improved now. She is given a liter bolus on arrival. Her vitals are normal. However, her creatinine is 2.5, with a BUN of 24. Baseline is around 1.6. Her potassium is 3.1. This is repleted. Chest x-ray and head CT are nonacute. She will be admitted for metabolic encephalopathy with acute renal failure. Hospitalist is aware and seeing the patient. Lab Data 01/30/25 05:39 01/29/25 23:48 Radiology Impressions Chest X-Ray 01/30/25 01:41 IMPRESSION: No acute findings. Head CT 01/30/25 01:41 IMPRESSION: [id number] small vessel disease. No evidence of acute intracranial process. Laboratory Results WBC 7.36 10^3/uL (3.29-11.43) 01/29/25 23:48 RBC 4.55 10^6/uL (3.85-5.65) 01/29/25 23:48 Hgb 13.50 g/dL (11.27-16.99) 01/29/25 23:48 Hct 41.0 % (36-47) 01/29/25 23:48 MCV 90.1 fl (85-98) 01/29/25 23:48 MCH 29.7 pg (27-33) 01/29/25 23:48 MCHC 32.9 g/dL (30-55) 01/29/25 23:48 RDW 14.1 % (12.1-15.1) 01/29/25 23:48 Plt Count 131 10^3/cmm (157-399) L 01/29/25 23:48 MPV 10.8 fL (7.4-10.4) H 01/29/25 23:48 Neut % (Auto) 69.4 % 01/29/25 23:48 Lymph % (Auto) 20.2 % 01/29/25 23:48 Burt % (Auto) 6.3 % 01/29/25 23:48 Eos % (Auto) 3.0 % 01/29/25 23:48 Baso % (Auto) 0.8 % 01/29/25 23:48 Neut # (Auto) 5.11 10^3/uL (1.8-7.7) 01/29/25 23:48 Lymph # (Auto) 1.5 10^3/uL (0.8-4.8) 01/29/25 23:48 Burt # (Auto) 0.5 10^3/uL (0.2-0.9) 01/29/25 23:48 Eos # (Auto) 0.2 10^3/uL (0.0-0.8) 01/29/25 23:48 Baso # (Auto) 0.1 10^3/uL (0.0-0.1) 01/29/25 23:48 Nucleated RBC % (auto) 0 % 01/29/25 23:48 Nucleated RBCs # 0.0 /100WBC 01/29/25 23:48 Sodium 138 mmol/L (136-145) 01/29/25 23:48 Potassium 3.1 mmol/L (3.5-5.1) L 01/29/25 23:48 Chloride 96 mmol/L (98-107) L 01/29/25 23:48 Carbon Dioxide 30 mmol/L (22-29) H 01/29/25 23:48 Anion Gap 15.1 (5-19) 01/29/25 23:48 BUN 24 mg/dL (8-23) H 01/29/25 23:48 Creatinine 2.5 mg/dL (0.5-0.9) H 01/29/25 23:48 GFR Calculation Not Reportable 01/29/25 23:48 Glucose 227 mg/dL (65-115) H 01/29/25 23:48 POC Glucose 200 mg/dL (70-110) H 01/29/25 22:42 Calculated Osmolality 297 mOsm/kg (285-295) H 01/29/25 23:48 Calcium 9.8 mg/dL (8.5-10.5) 01/29/25 23:48 Total Bilirubin 0.8 mg/dL (0.15-1.2) 01/29/25 23:48 AST 15 U/L (0-32) 01/29/25 23:48 ALT 10 U/L (0-33) 01/29/25 23:48 Alkaline Phosphatase 74 U/L (35-105) 01/29/25 23:48 Total Protein 7.7 g/dL (6.6-8.7) 01/29/25 23:48 Albumin 4.4 g/dL (3.5-5.2) 01/29/25 23:48 Globulin 3.3 g/dL (1.3-4.6) 01/29/25 23:48 Urine Color Dark yellow (Yellow) A 01/30/25 02:26 Urine Appearance Cloudy (CLEAR) A 01/30/25 02:26 Urine pH 5.0 (5-7) 01/30/25 02:26 Ur Specific [place] 1.030 (1.005-1.030) 01/30/25 02:26 Urine Protein 1+ (Negative) A 01/30/25 02:26 Urine Glucose (UA) Trace (Normal) H 01/30/25 02:26 Urine Ketones Trace (Negative) 01/30/25 02:26 Urine Blood Negative (Negative) 01/30/25 02:26 Urine Nitrate Negative (Negative) 01/30/25 02:26 Urine Bilirubin Negative (Negative) 01/30/25 02:26 Urine Urobilinogen 1.0 mg/dL (Negative) 01/30/25 02:26 Ur Leukocyte Esterase Negative (Negative) 01/30/25 02:26 Urine RBC 0-2 /hpf (0-2) 01/30/25 02:26 Urine WBC 0-5 /hpf (0-5) 01/30/25 02:26 Ur Squamous Epith Cells 11-20 /hpf (0-5) H 01/30/25 02:26 Amorphous Sediment Not Reportable 01/30/25 02:26 Urine Bacteria None seen /hpf (NONE) 01/30/25 02:26 Hyaline Casts 148.13 /lpf 01/30/25 02:26 Fine Granular Casts 0-4 /lpf H 01/30/25 02:26 Urine Mucus Trace /hpf 01/30/25 02:26 All radiology interpretation(s) finalized by discharge Discharge Plan Discharge Patient Disposition: Admitted As Inpatient Admit Provider: Leonela Lawrence Clinical Impression: Transient neurological symptoms, Acute on chronic renal failure Condition: Stable Coding Level of Care Code ED Account Resolution Specialist for Oscar Yoon
[2025-01-30] MEDS: heparin 5,000 unit/mL INJ 1 mL 5000 UNIT SUBCUT ×2 (03:54→14:59)
[2025-01-30 05:45] LABS: Hematocrit 35.1 % (36-47); Hemoglobin 11.50 g/dL (11.27-16.99); Mean Corpuscular HGB Conc 32.8 g/dL (30-55); Mean Corpuscular Hemoglobin 29.4 pg (27-33); Mean Corpuscular Volume 89.8 fl (85-98); Nucleated Red Blood Cells % 0 %; Platelet Count 103 10^3/cmm (157-399); Red Blood Count 3.91 10^6/uL (3.85-5.65); White Blood Count 7.00 10^3/uL (3.29-11.43)
[2025-01-30 06:05] LABS: Alanine Aminotransferase 9 U/L (0-33); Albumin Level 3.8 g/dL (3.5-5.2); Alkaline Phosphatase 64 U/L (35-105); Anion Gap 13.8 (5-19); Aspartate Amino Transferase 11 U/L (0-32); Blood Urea Nitrogen 24 mg/dL (8-23); Calcium 9.0 mg/dL (8.5-10.5); Carbon Dioxide 27 mmol/L (22-29); Chloride 104 mmol/L (98-107); Creatinine Clr Calc Pharmacy 23.1107; Globulin 2.7 g/dL (1.3-4.6); Glucose 198 mg/dL (65-115); Magnesium 1.9 mg/dL (1.7-2.3); Osmolality Calculated 302 mOsm/kg (285-295); Potassium 3.8 mmol/L (3.5-5.1); Sodium 141 mmol/L (136-145); Total Protein 6.5 g/dL (6.6-8.7)
[2025-01-30] MEDS: cefTRIAXone 2,000 mg SDV 2000 MG IVP (06:52)
[2025-01-30] MEDS: pneumococcal (23 valent) SDV 0.5 mL IM (09:43)
--- NOTE | 2025-01-30 11:44 | PC.CHAP ---
Pastoral Care Encounter/Spiritual Assessment Type of Contact [x] Declined job press feeder visit [] Patient/Family/Request visit [] Outpatient visit [] Follow-up visit [] Physician referral [] Code/Alert [x] Routine visit [] Staff referral [] Actively dying [] Patient sleeping [] Family support [] [] Out of room [] Palliative care [] [] Receiving care in room [] Pre-surgical visit [] Trauma [] Long length of stay [] ICU visit [] Other: Relational/Emotional Strength [] Patient feels connected with others/family/visitors/staff [] Distress [] Loneliness/isolation [] Abandonment Spirituality of Patient [] Person of Ani [] Attends Samaritan of their Ani [] Believes in Prayer [] Reads Bible or Roman Catholic materials [] There are Spiritual issues to be addressed Traveling Inventory Associate Interventions [] Prayer [] Active listening [] Non-anxious presence [] Spiritual/emotional support [] Crisis/trauma care [] Spiritual counseling [] Bereavement support [] Provided bereavement packet [] Provided Bible/devotional materials [] Provided toy/stuffed animal, coloring book to patient or family member [] Provided Communion [] Anointing/[place] [] Salvation [] Completed spiritual assessment [] Other: Impact on Illness or Injury [] Angry [] Fearful [] Anxious [] Often cries [] Exhaustion [] Unable to work [] Unable to attend zoroastrian [] Unable to walk/stand [] Unable to read [] Unable to drive [] Unable to eat/drink [] Unable to sleep [] Unable to be with family [] Patient intubated [] Other: Summary Time spent with patient
--- NOTE | 2025-01-30 11:45 | PC.CHAP ---
Pastoral Care Encounter/Spiritual Assessment Type of Contact [x] Declined cloth bleaching range back tender visit [] Patient/Family/Request visit [] Outpatient visit [] Follow-up visit [] Physician referral [] Code/Alert [x] Routine visit [] Staff referral [] Actively dying [] Patient sleeping [] Family support [] [] Out of room [] Palliative care [] [] Receiving care in room [] Pre-surgical visit [] Trauma [] Long length of stay [] ICU visit [] Other: Relational/Emotional Strength [] Patient feels connected with others/family/visitors/staff [] Distress [] Loneliness/isolation [] Abandonment Spirituality of Patient [] Person of Ani [] Attends Yazdanism of their Ani [] Believes in Prayer [] Reads Bible or Mormon materials [] There are Spiritual issues to be addressed Driller Multiple Spindle Interventions [] Prayer [] Active listening [] Non-anxious presence [] Spiritual/emotional support [] Crisis/trauma care [] Spiritual counseling [] Bereavement support [] Provided bereavement packet [] Provided Bible/devotional materials [] Provided toy/stuffed animal, coloring book to patient or family member [] Provided Communion [] Anointing/[place] [] Salvation [] Completed spiritual assessment [] Other: Impact on Illness or Injury [] Angry [] Fearful [] Anxious [] Often cries [] Exhaustion [] Unable to work [] Unable to attend synagogue [] Unable to walk/stand [] Unable to read [] Unable to drive [] Unable to eat/drink [] Unable to sleep [] Unable to be with family [] Patient intubated [] Other: Summary Time spent with patient
[2025-01-30 13:22] LABS: INR 1.01 (0.8-1.2); Prothrombin Time 14.00 SECONDS (12.1-14.9)
[2025-01-30 13:26] LABS: Estmated Average Glucose 157; Hemoglobin A1C 7.1 % (4.0-6.0)
--- NOTE | 2025-01-30 13:29 | P.PN_ITS ---
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, she is chronically has blurriness in the left eye, so she can see so well out of the left eye she has to follow-up with ophthalmology, denies any other focal weakness, no slurring of her words, Vitals/I&O/Wt Last Vital Signs Temp 97.7 F 01/30/25 11:48 Pulse 76 01/30/25 11:48 Resp 18 01/30/25 11:48 BP 123/87 01/30/25 11:48 Pulse Ox 94 01/30/25 11:48 O2 Del Method Room Air 01/30/25 11:48 01/29/25 01/30/25 01/30/25 22:59 06:59 14:59 Intake Total 1000 / 1000 1555 / 1555 Output Total 100 / 100 200 / 200 Balance 900 / 900 1355 / 1355 Weight last 48 hrs Weight 87.044 kg Weight 87.044 kg Weight 86.183 kg Physical Exam 2 Const: COMMON NORMALS: no acute distress and patient oriented x3 Resp: COMMON NORMALS: normal respiratory effort, No retractions, No use of accessory muscles and clear to auscultation bilaterally AUSCULTATION: clear to auscultation bilaterally Cardio: COMMON NORMALS: regular rate, regular rhythm, S1 normal heart sound present and S2 normal heart sound present RATE: regular rate RHYTHM: r egular rhythm HEART SOUNDS: S1 normal heart sound present and S2 normal heart sound present GI: COMMON NORMALS: Normal to inspection, nondistended, normoactive bowel sounds present and non-tender Extremity: COMMON NORMALS: no pedal edema Neuro: COMMON NORMALS: patient oriented x3, CN's II-XII intact bilaterally and moves all extremities Psych: COMMON NORMALS: mental status grossly normal Data 01/30/25 05:39 01/30/25 05:39 A&P Assessment and plan 1. Acute on chronic renal failure: 2. Diabetes mellitus: 3. Encephalopathy: 4. Mild cognitive impairment: 5. Hypothyroidism: 6. Anemia: 7. Dizziness: Plan: Acute on chronic renal failure -Likely secondary dehydration - IV fluids Dizziness - Will do stroke evaluation -CT head - Carotid artery ultrasound - Cardiac echo - Neurochecks - NIH stroke scale - Orthostatic vitals - PT OT History of Amado's palsy, has a slight right facial droop, which she reports is chronic UTI with confusion Continue IV Rocephin -Gentle hydration -Follow-up cultures and optimize accordingly Dehydration -Gentle rehydration Hypokalemia 3.1 resolved -Replaced with current potassium at 3.8 corrected PDMP PDMP Reviewed: Not Reviewed Attestations 2 Medical Necessity Statement*: Patient requires hospitalization for acute on chronic renal failure, dizziness, UTI, dehydration Diagnoses Acute on chronic renal failure N17.9; N18.9 Diabetes mellitus E11.9 Encephalopathy G93.40 Mild cognitive impairment G31.84 Hypothyroidism E03.9 Anemia D64.9 Dizziness R42
[2025-01-30 13:38] LABS: Cholesterol 220 mg/dL (0-200); HDL Cholesterol 61 mg/dL (60-100); Thyroid Stimulating Hormone 0.56 uIU/mL (0.27-4.20); Triglycerides 137 mg/dL (0-150)
[2025-01-31] VITALS (10 sets, daily range): BP systolic 128–171; BP diastolic 58–93; PULSE 69–79; RESP 16–70; TEMP 36.3–36.8; O2SAT 94–98
[2025-01-31 04:00] LABS: Hematocrit 33.6 % (36-47); Hemoglobin 10.60 g/dL (11.27-16.99); Mean Corpuscular HGB Conc 31.5 g/dL (30-55); Mean Corpuscular Hemoglobin 29.1 pg (27-33); Mean Corpuscular Volume 92.3 fl (85-98); Nucleated Red Blood Cells % 0 %; Platelet Count 99 10^3/cmm (157-399); Red Blood Count 3.64 10^6/uL (3.85-5.65); White Blood Count 6.55 10^3/uL (3.29-11.43)
[2025-01-31] MEDS: heparin 5,000 unit/mL INJ 1 mL 5000 UNIT SUBCUT (04:28)
[2025-01-31 04:31] LABS: Alanine Aminotransferase 7 U/L (0-33); Albumin Level 3.6 g/dL (3.5-5.2); Alkaline Phosphatase 57 U/L (35-105); Anion Gap 12.2 (5-19); Aspartate Amino Transferase 10 U/L (0-32); Blood Urea Nitrogen 17 mg/dL (8-23); Calcium 8.5 mg/dL (8.5-10.5); Carbon Dioxide 27 mmol/L (22-29); Chloride 109 mmol/L (98-107); Globulin 2.4 g/dL (1.3-4.6); Glucose 124 mg/dL (65-115); Osmolality Calculated 303 mOsm/kg (285-295); Potassium 3.2 mmol/L (3.5-5.1); Sodium 145 mmol/L (136-145); Total Protein 6.0 g/dL (6.6-8.7)
[2025-01-31 04:44] LABS: Creatinine Clr Calc Pharmacy 40.3313
[2025-01-31] MEDS: cefTRIAXone 2,000 mg SDV 2000 MG IVP (06:58)
[2025-01-31] MEDS: oxybutynin chloride XL 5 MG TABLET 10 MG PO (08:24)
[2025-01-31] MEDS: FUROsemide 10 mg/mL SDV 4mL 40 MG IVP (09:26)
[2025-01-31 09:54] LABS: LAB Peripheral Smear Sent for Review
--- NOTE | 2025-01-31 11:16 | USR_ITS ---
PROCEDURE INFORMATION: Exam: US Duplex Bilateral Extracranial Arteries; Complete; Carotid Arteries Exam date and time: 01/31/2025 7:49 AM Age: 74 years old Clinical indication: Other: CVA TECHNIQUE: Imaging protocol: Real-time duplex ultrasound scan of the bilateral extracranial arteries combining perez scale, color Doppler and spectral waveform analysis with image documentation. Complete exam. Exam focused on the carotid arteries. COMPARISON: CT head wo con* [id number] 01/30/2025 2:01 AM FINDINGS: Right common carotid artery: Unremarkable. No occlusion or stenosis. Waveforms are normal. Right internal carotid artery: Unremarkable. No occlusion or stenosis. Waveforms are normal. Right ICA/CCA ratio: Within normal limits. Right external carotid artery: No stenosis in the origin. Right vertebral artery: Unremarkable. Antegrade flow. Left common carotid artery: Unremarkable. No occlusion or stenosis. Waveforms are normal. Left internal carotid artery: Unremarkable. No occlusion or stenosis. Waveforms are normal. Left ICA/CCA ratio: Within normal limits. Left external carotid artery: No stenosis in the origin. Left vertebral artery: Unremarkable. Antegrade flow. US/CV carotid duplex BI* [id number] IMPRESSION: No carotid arterial stenosis. REFERENCES: SRU CRITERIA. The degree of internal carotid artery stenosis is based on criteria defined by the Society of Radiologists in Ultrasound (SRU). Normal is no stenosis. Mild is less than 50% stenosis. Moderate is 50-69% stenosis. Severe is greater than 69% stenosis to near occlusion. Near occlusion is a markedly narrowed lumen. Total occlusion is no detectable patent lumen. Lorenza Hubbard, et al. Carotid Artery Stenosis: Perez-Scale and Doppler US Diagnosis-Society of Radiologists in Ultrasound Consensus Conference. Radiology 2003; 229:340-346.
--- NOTE | 2025-01-31 11:16 | USCV_ITS ---
Wendy Dockery Age: 74 Gender: F : 1950 Exam Date: 01/31/2025 07:17 Ordering Phys: iHma Bartlett MD Technologist: YINA Exam Location: [facility] Indication: cva BP: 138 / 80 HR: 71 Rhythm: Sinus Technical Quality: Adequate MEASUREMENTS (Male / Female) Normal Values 2D ECHO LV Diastolic Diameter PLAX 5.0 cm 4.2 - 5.9 / 3.9 - 5.3 cm IVS Diastolic Thickness 1.1 cm 0.6 - 1.0 / 0.6 - 0.9 cm IVS Systolic Thickness 2.0 cm LVPW Diastolic Thickness 1.5 cm 0.6 - 1.0 / 0.6 - 0.9 cm LVPW Systolic Thickness 2.0 cm LVOT Diameter 2.0 cm LV Ejection Fraction 2D Teich 34.3 % LV Ejection Fraction MOD 4C 40.9 % LV Ejection Fraction MOD 2C 43.5 % LV Ejection Fraction 2C AL 43.6 % LA Diameter 3.9 cm RA Systolic Volume 4C AL 57.7 ml RA Systolic Volume 4C MOD 57.2 ml LA Sys Volume AL 61.1 cm cubed LA Sys Volume Index AL 29.6 cm cubed/m squared Aorta at Sinotubular Diameter 3.0 cm IVC Diameter 1.7 cm M-MODE LA Ao Ratio MM 1.1 AV Cusp Separation MM 2.1 cm DOPPLER AV Peak Velocity 117.7 cm/s LVOT Peak Velocity 97.0 cm/s AV Area Cont Eq vti 2.7 cm squared AV Area Cont Eq pk 2.7 cm squared MV Peak Velocity 139.0 cm/s MV Area PHT 9.1 cm squared Mitral E to A Ratio 0.8 TV Peak Velocity 319.5 cm/s TR Peak Velocity 322.0 cm/s TR Peak Gradient 41.5 mmHg TR Mean Velocity 270.0 cm/s TR Mean Gradient 30.3 mmHg TR Velocity Time Integral 117.5 cm PV Peak Velocity 75.3 cm/s RV Ejection Time 0.3 s FINDINGS Left Ventricle Mild left ventricular hypertrophy. Normal left ventricular cavity size. Moderately decreased left ventricular systolic function with severe hypokinesis of the mid and basal anterolateral, inferolateral, inferior and inferoseptal wall segments. EF 40%. Grade II/IV diastolic dysfunction, moderately elevated filling pressures. Right Ventricle Normal right ventricular size and systolic function. Pacemaker wire visualized in the right ventricle. Moderate pulmonary hypertension, RVSP 50 mmHg. Right Atrium Normal right atrial size. Left Atrium Normal left atrial size. Mitral Valve Moderate-severe mitral valve regurgitation. Aortic Valve Mild aortic valve regurgitation. No aortic valve stenosis. Tricuspid Valve Mild tricuspid valve regurgitation. Pulmonic Valve Mild pulmonary valve regurgitation. Pericardium No pericardial effusion. Aorta Mildly dilated ascending aorta, measuring 4.0 cm. IVC Normal IVC dimension with <50% respiratory change of the inferior vena cava. Estimated RA pressure 8 mmHg. CONCLUSIONS 1. Moderately decreased left ventricular systolic function with severe hypokinesis of the mid and basal anterolateral, inferolateral, inferior and inferoseptal wall segments. EF 40%. Grade II/IV diastolic dysfunction, moderately elevated 2. Moderate pulmonary HTN. 3. Moderate mitral valve regurgitation 4. Mildly dilated ascending aorta, 4.0 cm. Jhony De La Cruz MD, FACC (Electronically Signed) Final Date: 31 January 2025 15:09 S
--- NOTE | 2025-01-31 11:33 | PM.DCS ---
Discharge Providers Date of Admission: 01/30/25 02:28 Date of Discharge: January 31, 2025 Attending Provider at Admission: Leonela Lawrence MD Attending Provider at Discharge: Hima Bartlett MD Primary Care Provider: KEITH More Diagnoses at Discharge Discharge Diagnosis 1. Acute on chronic renal failure: 2. Type 2 diabetes mellitus with stage 2 chronic kidney disease, with long-term current use of insulin: 3. Encephalopathy: 4. Mild cognitive impairment: 5. Hypothyroidism, unspecified type: 6. Anemia: 7. 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 Patient was admitted to [facility] for EDI on CKD, received IV fluids, creatinine improved, will be discharged with close follow-up with primary care provider as outpatient for altered mental status secondary to UTI, she did receive IV antibiotics, overall feels improved, will be discharged on p.o. antibiotics For her concern for dizziness - Reports a chronic history of dizziness, unsteadiness - But acute on chronic worsening -Potentially associate with her dehydration, EDI, UTI - Concern for possible posterior circulation stroke? 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, does have slight right facial droop, patient reports chronic, no word finding difficulty, no difficulty swallowing, no blurry vision - She does have some unsteadiness - Will discharge on aspirin, statin - Follow-up with neurology as outpatient - Discussed with patient if she has any acute dizziness please call 911 Right sided Amado's palsy History of CHF - Received 1 dose of Lasix during hospital stay due to concern for fluid overload - Cardiac echo Physical Exam Const: COMMON NORMALS: no acute distress and patient oriented x3 Resp: COMMON NORMALS: normal respiratory effort, No retractions, No use of accessory muscles and clear to auscultation bilaterally AUSCULTATION: clear to auscultation bilaterally Cardio: COMMON NORMALS: regular rate, regular rhythm, S1 normal heart sound present and S2 normal heart sound present RATE: regular rate RHYTHM: regular rhythm HEART SOUNDS: S1 normal heart sound present and S2 normal heart sound present GI: COMMON NORMALS: Normal to inspection, nondistended, normoactive bowel sounds present and non-tender Extremity: COMMON NORMALS: no calf tenderness and no pedal edema Neuro: COMMON NORMALS: patient oriented x3, CN's II-XII intact bilaterally, moves all extremities and no focal motor deficits Psych: COMMON NORMALS: mental status grossly normal Discharge Data Studies Completed and Pending Completed Studies During Hospitalization Category Date Time Status CT head wo con* [id number] Stat Cat Scan 01/30/25 01:41 Completed XR chest 1V portable [id number] Stat Exams 01/30/25 01:41 Completed CV carotid duplex BI* [id number] Routine Ultrasound 01/31/25 11:16 Completed Pending at discharge Category Date Time Status Complete Blood Count w/Auto AM LABS Lab 02/01/25 04:00 Ordered Complete Blood Count w/Auto AM LABS Lab 02/02/25 04:00 Ordered Comprehensive Metabolic Panel AM LABS Lab 02/01/25 04:00 Ordered Comprehensive Metabolic Panel AM LABS Lab 02/02/25 04:00 Ordered CV. echo complete* [id number] Routine Ultrasound 01/31/25 11:16 Taken Radiology Impressions Chest X-Ray 01/30/25 01:41 IMPRESSION: No acute findings. Head CT 01/30/25 01:41 IMPRESSION: [id number]-nzoorevc small vessel disease. No evidence of acute intracranial process. Carotid Doppler Study 01/31/25 11:16 IMPRESSION: No carotid arterial stenosis. REFERENCES: SRU CRITERIA. The degree of internal carotid artery stenosis is based on criteria defined by the Society of Radiologists in Ultrasound (SRU). Normal is no stenosis. Mild is less than 50% stenosis. Moderate is 50-69% stenosis. Severe is greater than 69% stenosis to near occlusion. Near occlusion is a markedly narrowed lumen. Total occlusion is no detectable patent lumen. Lorenza Hubbard, et al. Carotid Artery Stenosis: Perez-Scale and Doppler US Diagnosis-Society of Radiologists in Ultrasound Consensus Conference. Radiology 2003; 229:340-346. Laboratory Results WBC 6.55 10^3/uL (3.29-11.43) 01/31/25 03:25 RBC 3.64 10^6/uL (3.85-5.65) L 01/31/25 03:25 Hgb 10.60 g/dL (11.27-16.99) L 01/31/25 03:25 Hct 33.6 % (36-47) L 01/31/25 03:25 MCV 92.3 fl (85-98) 01/31/25 03:25 MCH 29.1 pg (27-33) 01/31/25 03:25 MCHC 31.5 g/dL (30-55) 01/31/25 03:25 RDW 14.2 % (12.1-15.1) 01/31/25 03:25 Plt Count 99 10^3/cmm (157-399) L 01/31/25 03:25 MPV 11.1 fL (7.4-10.4) H 01/31/25 03:25 Neut % (Auto) 56.2 % 01/31/25 03:25 Lymph % (Auto) 32.1 % 01/31/25 03:25 [place] % (Auto) 6.0 % 01/31/25 03:25 Eos % (Auto) 4.9 % 01/31/25 03:25 Baso % (Auto) 0.6 % 01/31/25 03:25 Neut # (Auto) 3.69 10^3/uL (1.8-7.7) 01/31/25 03:25 Lymph # (Auto) 2.1 10^3/uL (0.8-4.8) 01/31/25 03:25 [place] # (Auto) 0.4 10^3/uL (0.2-0.9) 01/31/25 03:25 Eos # (Auto) 0.3 10^3/uL (0.0-0.8) 01/31/25 03:25 Baso # (Auto) 0.0 10^3/uL (0.0-0.1) 01/31/25 03:25 Nucleated RBC % (auto) 0 % 01/31/25 03:25 Nucleated RBCs # 0.0 /100WBC 01/31/25 03:25 Peripher Smr Path Cons Sent for review 01/31/25 03:25 PT 14.00 SECONDS (12.1-14.9) 01/30/25 12:50 INR 1.01 (0.8-1.2) 01/30/25 12:50 Sodium 145 mmol/L (136-145) 01/31/25 03:25 Potassium 3.2 mmol/L (3.5-5.1) L 01/31/25 03:25 Chloride 109 mmol/L (98-107) H 01/31/25 03:25 Carbon Dioxide 27 mmol/L (22-29) 01/31/25 03:25 Anion Gap 12.2 (5-19) 01/31/25 03:25 BUN 17 mg/dL (8-23) 01/31/25 03:25 Creatinine 1.3 mg/dL (0.5-0.9) H 01/31/25 03:25 GFR Calculation Not Reportable 01/31/25 03:25 Glucose 124 mg/dL (65-115) H 01/31/25 03:25 POC Glucose 119 mg/dL (70-110) H 01/31/25 06:26 Estimat Average Glucose 157 01/30/25 12:50 Hemoglobin A1c 7.1 % (4.0-6.0) H 01/30/25 12:50 Calculated Osmolality 303 mOsm/kg (285-295) H 01/31/25 03:25 Calcium 8.5 mg/dL (8.5-10.5) 01/31/25 03:25 Phosphorus 3.7 mg/dL (2.5-4.5) 01/30/25 05:39 Magnesium 1.9 mg/dL (1.7-2.3) 01/30/25 05:39 Total Bilirubin 0.5 mg/dL (0.15-1.2) 01/31/25 03:25 AST 10 U/L (0-32) 01/31/25 03:25 ALT 7 U/L (0-33) 01/31/25 03:25 Alkaline Phosphatase 57 U/L (35-105) 01/31/25 03:25 Total Protein 6.0 g/dL (6.6-8.7) L 01/31/25 03:25 Albumin 3.6 g/dL (3.5-5.2) 01/31/25 03:25 Globulin 2.4 g/dL (1.3-4.6) 01/31/25 03:25 Triglycerides 137 mg/dL (0-150) 01/30/25 12:50 Cholesterol 220 mg/dL (0-200) H 01/30/25 12:50 LDL Cholesterol, Calc 132 mg/dL (50-129) H 01/30/25 12:50 HDL Cholesterol 61 mg/dL (60-100) 01/30/25 12:50 LDL/HDL Ratio 2.16 RATIO (0.00-3.22) 01/30/25 12:50 Cholesterol/HDL Ratio 3.61 mg/dL (0.0-4.40) 01/30/25 12:50 TSH 0.56 uIU/mL (0.27-4.20) 01/30/25 12:50 Urine Color Dark yellow (Yellow) A 01/30/25 02:26 Urine Appearance Cloudy (CLEAR) A 01/30/25 02:26 Urine pH 5.0 (5-7) 01/30/25 02:26 Ur Specific [place] 1.030 (1.005-1.030) 01/30/25 02:26 Urine Protein 1+ (Negative) A 01/30/25 02:26 Urine Glucose (UA) Trace (Normal) H 01/30/25 02:26 Urine Ketones Trace (Negative) 01/30/25 02:26 Urine Blood Negative (Negative) 01/30/25 02:26 Urine Nitrate Negative (Negative) 01/30/25 02:26 Urine Bilirubin Negative (Negative) 01/30/25 02:26 Urine Urobilinogen 1.0 mg/dL (Negative) 01/30/25 02:26 Ur Leukocyte Esterase Negative (Negative) 01/30/25 02:26 Urine RBC 0-2 /hpf (0-2) 01/30/25 02:26 Urine WBC 0-5 /hpf (0-5) 01/30/25 02:26 Ur Squamous Epith Cells 11-20 /hpf (0-5) H 01/30/25 02:26 Amorphous Sediment Not Reportable 01/30/25 02:26 Urine Bacteria None seen /hpf (NONE) 01/30/25 02:26 Hyaline Casts 148.13 /lpf 01/30/25 02:26 Fine Granular Casts 0-4 /lpf H 01/30/25 02:26 Urine Mucus Trace /hpf 01/30/25 02:26 Vitals Last Vital Signs Temp 98.3 F 01/31/25 08:00 Pulse 78 01/31/25 08:16 Resp 16 01/31/25 08:16 BP 164/80 01/31/25 08:00 Pulse Ox 94 01/31/25 08:16 O2 Del Method Room Air 01/31/25 08:16 Discharge Plan Discharge Patient Disposition: Home Condition: Stable Prescriptions: New aspirin 81 mg Tablet,Delayed Release (Dr/Ec) 81 mg PO DAILY 30 Days Qty: 30 0RF cefdinir 300 mg capsule 300 mg PO BID 5 Days Qty: 10 0RF Continued Jardiance 10 mg tablet 10 mg PO DAILY oxybutynin chloride 5 mg tablet extended release 24hr 10 mg PO DAILY hydroxyzine pamoate 25 mg capsule 25 mg PO TID PRN (Reason: Itching) hydrocodone-acetaminophen 7.5-325 mg tablet 1 tab PO Q6H PRN (Reason: Pain) donepezil 5 mg tablet 5 mg PO DAILY albuterol sulfate 90 mcg/actuation HFA aerosol inhaler 1 puff inhalation Q4H PRN (Reason: sob) famotidine 40 mg Tablet 40 mg PO DAILY sertraline 100 mg Tablet 100 mg PO DAILY levothyroxine 75 mcg Tablet 75 mcg PO DAILY bupropion HCl 150 mg Tablet Extended Release 24 Hr 150 mg PO BEDTIME cyclobenzaprine 10 mg Tablet 10 mg PO TID PRN (Reason: Spasms) sacubitril-valsartan [Entresto] 49-51 mg Tablet 1 tab PO BID potassium chloride 10 mEq capsule, extended release 10 meq PO DAILY Changed carvedilol 25 mg Tablet 12.5 mg PO BID 30 Days Qty: 30 0RF insulin glargine [Lantus Solostar U-100 Insulin] 100 unit/mL (3 mL) insulin pen 10 unit SUBCUT BEDTIME 30 Days Qty: 0 0RF Patient Comments: Pt. is ordered 59u but only takes 50u. No Action (DME) 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 sensor Device See Rx Instructions .Route Qty: 5 1RF Rx Instructions: As directed (DME) pen needle, diabetic [BD Ultra-Fine Short Pen Needle] 31 gauge x 5/16 needle See Rx Instructions .Route Qty: 100 5RF Rx Instructions: As directed (DME) 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,vacuum repairer,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 Rx Instructions: USE directed, CHANGE every 14 DAYS. (DME) FreeStyle [place] 2 [place] Misc See Rx Instructions .Route Qty: 1 0RF Rx Instructions: As directed (DME) pen needle, diabetic [TechLITE Pen Needle] 32 gauge x 5/32 needle See Rx Instructions .Route Qty: 100 0RF Rx Instructions: use with insulin Referrals: Acacia Welch FNP [Primary Care Provider, Nurse Practitioner] - 4-7 days Referral Note: Please call your primary care provider Saturday for the need of a hospital discharge follow up in 4-7 days. Discharge Diet: Cardiac Discharge Activity: Resume usual activity Patient Instructions: Opioid Safety, Patient Portal & Belle Instructions Activity Restrictions/Additional Instructions: - Discharge Attestations Time Spent in Discharge Care*: greater than 30 min Status at Discharge: Cognitive status at discharge: cognitively intact, Behavioral status at discharge: [facility], Quality Metrics Clinical Quality Measures [ No reported AMI, CVA or VTE this stay] Coding Level of Care Code 64445 Total time (in minutes) for Discharge: 45 Diagnoses Acute on chronic renal failure N17.9; N18.9 Type 2 diabetes mellitus with stage 2 chronic kidney disease, with long-term current use of insulin E11.22; N18.2; Z79.4 Diabetes mellitus type: type 2 Diabetes mellitus intermediate designer insulin use: with chcf use Diabetes mellitus complication status: with kidney complications Diabetes mellitus complication detail: with chronic kidney disease Chronic kidney disease stage: stage 2 (mild) Encephalopathy G93.40 Mild cognitive impairment G31.84 Hypothyroidism, unspecified type E03.9 Hypothyroidism type: unspecified Anemia D64.9 Dizziness R42
--- NOTE | 2025-01-31 16:03 | P.PN_ITS ---
Subjective 2 Subjective: Patient was seen this morning, currently alert oriented x 3, following all commands, we discussed her echocardiogram findings, EF is down to 40%, she has been told that her EF is 28%, we discussed multiple wall motion abnormalities she tells me that she does not know about these but has been feeling more shortness of breath, no chest pain given her dizziness, will plan on consulting cardiology and doing a stress test tomorrow morning,s he is in agreement Vitals/I&O/Wt Last Vital Signs Temp 97.8 F 01/31/25 11:39 Pulse 70 01/31/25 11:39 Resp 70 H 01/31/25 11:39 BP 152/62 01/31/25 11:39 Pulse Ox 98 01/31/25 11:39 O2 Del Method Room Air 01/31/25 11:39 01/31/25 01/31/25 01/31/25 06:59 14:59 22:59 Intake Total 595 / 3035 925.834 / 925.834 Output Total 800 / 1400 1000 / 1000 Balance -205 / 1635 -74.166 / -74.166 Weight last 48 hrs Weight 92.215 kg Weight 87.044 kg Weight 87.044 kg Weight 86.183 kg Physical Exam 2 Const: COMMON NORMALS: no acute distress and patient oriented x3 Resp: COMMON NORMALS: normal respiratory effort, No retractions, No use of accessory muscles and clear to auscultation bilaterally AUSCULTATION: clear to auscultation bilaterally Cardio: COMMON NORMALS: regular rate, regular rhythm, S1 normal heart sound present and S2 normal heart sound present RATE: regular rate RHYTHM: r egular rhythm HEART SOUNDS: S1 normal heart sound present and S2 normal heart sound present GI: COMMON NORMALS: Normal to inspection, nondistended, normoactive bowel sounds present and non-tender Extremity: COMMON NORMALS: no pedal edema Neuro: COMMON NORMALS: patient oriented x3 Psych: COMMON NORMALS: mental status grossly normal Data 01/31/25 03:25 01/31/25 03:25 A&P Assessment and plan 1. Acute on chronic renal failure: 2. Diabetes mellitus: 3. Encephalopathy: 4. Mild cognitive impairment: 5. Hypothyroidism: 6. Anemia: 7. Dizziness: Plan: Acute on chronic renal failure -Likely secondary dehydration - IV fluids completed, resolving Dizziness - Will do stroke evaluation -CT head no acute findings - Carotid artery ultrasound, no acute findings - Cardiac echo as below - Neurochecks - NIH stroke scale - Orthostatic vitals - PT OT History of Amado's palsy, has a slight right facial droop, which she reports is chronic UTI with confusion Continue IV Rocephin -Gentle hydration -Follow-up cultures and optimize accordingly Dehydration -Gentle rehydration, completed History of ischemic cardiomyopathy, EF 20% Complaints of dizziness, shortness of breath CONCLUSIONS 1. Moderately decreased left ventricular systolic function with severe hypokinesis of the mid and basal anterolateral, inferolateral, inferior and inferoseptal wall segments. EF 40%. Grade II/IV diastolic dysfunction, moderately elevated 2. Moderate pulmonary HTN. 3. Moderate mitral valve regurgitation 4. Mildly dilated ascending aorta, 4.0 cm. Plan - Aspirin, statin, Coreg - N.p.o. midnight, cardiac stress test tomorrow morning - Cardiology consulted Hypokalemia 3.1 replace PDMP PDMP Reviewed: Not Reviewed Attestations 2 Medical Necessity Statement*: Patient requires hospitalization for EF of 40%, with multiple wall motion abnormality seen on echo requiring cardiac stress testing, cardiology consultation Diagnoses Acute on chronic renal failure N17.9; N18.9 Diabetes mellitus E11.9 Encephalopathy G93.40 Mild cognitive impairment G31.84 Hypothyroidism E03.9 Anemia D64.9 Dizziness R42
--- NOTE | 2025-01-31 16:05 | ECG_ITS ---
[facility] Test Date: 2025-02-01 Pat Name: Wendy Dockery Department: Room: 254 Gender: Female Traveling Engineer: : 1950 Requested By: Hima Bartlett Order Number: [id number] Reading MD: Interpretive Statements Lung unchanged pre/post procedure; ; Intraprocedure shortess of breath; ; Symptoms resoled by discharge [id number]
[2025-01-31 16:29] LABS: Troponin(5th) Baseline 21 ng/L (0-10)
--- NOTE | 2025-01-31 17:41 | ECG_ITS ---
[facility]: [facility]25[facility]31 Pat Name: Wendy Dokcery Department: Room: 254 Gender: Female Software Development Analyst: : 1950 Requested By: Hima Bartlett Order Number: [id number] Preciado MD: Jhony De La Cruz M.D. Measurements Intervals [place] Rate: 69 P: 100 MT: 268 QRS: 251 QRSD: 185 T: 83 QT: 472 QTc: 509 Interpretive Statements ELECTRONIC ATRIAL PACEMAKER ELECTRONIC VENTRICULAR PACEMAKER ATRIAL-VENTRICULAR DUAL-PACED RHYTHM ABNORMAL RHYTHM ECG Compared to ECG 01/29/2025 22:37:49 NO SIGNIFICANT CHANGE Electronically Signed On 01-31-2025 20:22:36 CDT by Jhony De La Cruz M.D. [id number] [id number]
[2025-01-31 19:05] LABS: Troponin 5 2HR 22.71 ng/L (0-10); Troponin 5 2HR Delta 1.71 ABS# (0-10)
[2025-01-31] MEDS: insulin glargine 100 units/1 mL 10 UNIT SUBCUT (20:38)
--- NOTE | 2025-01-31 21:41 | ECG_ITS ---
[facility]: 2025-01[facility]31 Pat Name: Wendy Dockery Department: Room: 254 Gender: Female Structural Biologist: : 1950 Requested By: Hima Bartlett Order Number: [id number] Reading MD: Measurements Intervals [place] Rate: 69 P: 91 TN: 273 QRS: 261 QRSD: 185 T: 85 QT: 470 QTc: 507 Interpretive Statements ELECTRONIC ATRIAL PACEMAKER ELECTRONIC VENTRICULAR PACEMAKER ABNORMAL RHYTHM ECG [id number]
[2025-01-31 22:38] LABS: Troponin 5 6HR 21.25 ng/L (0-10); Troponin 5 6HR Delta 0.25 ng/L (0-12)
[2025-02-01] VITALS (8 sets, daily range): BP systolic 147–171; BP diastolic 71–83; PULSE 70–78; RESP 15–17; TEMP 36.4–36.6; O2SAT 95–99
[2025-02-01 03:23] LABS: Hematocrit 36.8 % (36-47); Hemoglobin 11.70 g/dL (11.27-16.99); Mean Corpuscular HGB Conc 31.8 g/dL (30-55); Mean Corpuscular Hemoglobin 29.2 pg (27-33); Mean Corpuscular Volume 91.8 fl (85-98); Nucleated Red Blood Cells % 0 %; Platelet Count 122 10^3/cmm (157-399); Red Blood Count 4.01 10^6/uL (3.85-5.65); White Blood Count 6.04 10^3/uL (3.29-11.43)
[2025-02-01 03:45] LABS: Alanine Aminotransferase 7 U/L (0-33); Albumin Level 3.8 g/dL (3.5-5.2); Alkaline Phosphatase 62 U/L (35-105); Anion Gap 13.4 (5-19); Aspartate Amino Transferase 10 U/L (0-32); Blood Urea Nitrogen 15 mg/dL (8-23); Calcium 9.1 mg/dL (8.5-10.5); Carbon Dioxide 29 mmol/L (22-29); Chloride 106 mmol/L (98-107); Globulin 2.7 g/dL (1.3-4.6); Glucose 162 mg/dL (65-115); Osmolality Calculated 304 mOsm/kg (285-295); Potassium 3.4 mmol/L (3.5-5.1); Sodium 145 mmol/L (136-145); Total Protein 6.5 g/dL (6.6-8.7)
[2025-02-01 03:47] LABS: Creatinine Clr Calc Pharmacy 37.4505
[2025-02-01] MEDS: cefTRIAXone 2,000 mg SDV 2000 MG IVP (06:33)
[2025-02-01] MEDS: aminophylline 25 mg/mL SDV 20 mL IVP (07:28)
--- NOTE | 2025-02-01 08:37 | P.CONIM_ITS ---
<Statement entered by Jhony De La Cruz MD - 02/01/25 13:12> Patient was evaluated and cared for in conjunction with an advanced practice practitioner. I personally examined the patient and reviewed the chart and all pertinent data including imaging, telemetry, and laboratory results. I discussed the patient in detail with the advanced practice practitioner. Please see their note for complete consult note, testing results and agreed upon plan of care for the patient. 1. Lightheadedness 2. Dehydration 3. Chronic HFrEF 4. EDI/CKD 5. Pacemaker - no arrythmias on tele Nuclear stress test negative for inducible ischemia Echo - EF 40%, up from 28% Can be discharged on her home cardiac meds with close followup with her Cardiologists in [place] Providers/Reason For Consult 2 Consulting Physician/Specialty*: Dr De La Cruz, cardiology Reason for Consult*: Shortness of breath Requesting Physician: Dr. Bartlett Attending Physician: Hima Bartlett MD Primary Care Provider: KEITH More History of Present Illness History of Present Illness Wendy Dockery is a 74 year old female with past medical history of diabetes, CKD, history of nonischemic cardiomyopathy with systolic CHF (previous LVEF 28%), atrial fibrillation, pacemaker originally placed about 23 years ago (7 generator changes since then), history of coronary angiogram over 5 years ago (no significant stenosis per patient), sleep apnea. She follows with steel inspector Dr. Toscano in [place]. Last visit 6 months ago. She presented to the emergency room 01/30/2025 with worsening shortness of breath, difficulty walking. Found to be dehydrated and hypokalemic which was corrected. Stroke evaluation unremarkable. She lives in a 3 level home, was told that walking stairs is too stressful for her heart so she has been avoiding that. She has someone bring her meals and stays on the bottom floor. Echocardiogram 01/30/2025: LVEF 40%, mild LVH, grade 2 diastolic dysfunction, moderate PAH (RVSP 50 mmHg), moderate to severe mitral regurgitation, mild aortic, tricuspid and pulmonary regurgitation. Wall motion abnormalities-severe hypokinesis of the mid and basal anterolateral, inferolateral, inferior and inferoseptal wall segments. Mildly dilated ascending aorta 4.0 cm. EKG shows paced rhythm. Medications/Allergies Home Medications ?Medication ?Instructions ?Recorded ?Confirmed ?Last Taken ?Type bupropion HCl 150 mg 24 hr tablet, 150 mg PO BEDTIME 0 06/17/19 01/30/25 01/28/25 20:00 History extended release famotidine 40 mg tablet 40 mg PO DAILY 06/17/1901/1801/29/25 09:00 History levothyroxine 75 mcg tablet 75 mcg PO DAILY 06/17/19 0 01/30/25 01/29/25 09:00 History sertraline 100 mg tablet 100 mg PO DAILY 06/17/1901/29/25 09:00 History cyclobenzaprine 10 mg tablet 10 mg PO TID PRN Spasms 0 06/18/19 01/30/25 06/17/19 History sacubitril 49 mg-valsartan 51 mg 1 tab PO BID 06/18/19 01/30/25 01/29/25 09:00 History tablet (Entresto) pen needle, diabetic 31 gauge x #100 ea 11/24/2001/3001/29/25 09:00 Rx 5/16 (BD Ultra-Fine Short Pen Needle) 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 sensor #5 ea 03/19/23 01/30/2501/18 09:00 Rx empagliflozin 10 mg tablet 10 mg PO DAILY 03/19/2301/29/25 09:00 History (Jardiance) donepezil 5 mg tablet 5 mg PO DAILY 02/17/2401/3001/29/25 09:00 History hydrocodone 7.5 mg-acetaminophen 1 tab PO Q6H PRN Pain 02/17/24 01/30/25 01/29/25 History 325 mg tablet hydroxyzine pamoate 25 mg capsule 25 mg PO TID PRN Itc nisha 02/17/24 01/30/25 Unknown History oxybutynin chloride 5 mg 10 mg PO DAILY 02/17/2401/1801/29/25 09:00 History tablet,extended release 24 hr 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,burr bench operator,cont #1 ea 03/05/24 01/30/25 09:00 Rx flash glucose sensor (FreeStyle #5 kits 03/24/2401/3001/29/25 09:00 Rx Clark 2 Sensor kit) albuterol sulfate 90 mcg/actuation 1 puff inhalation Q 4H PRN sob 08/24/24 01/30/25 Unknown History aerosol inhaler flash glucose scanning reader #1 ea 08/25/24 01/30/25 01/29/25 09:00 Rx (FreeStyle Clark 2 [place]) pen needle, diabetic 32 gauge x #100 ea 12/14/2401/3001/29/25 09:00 Rx /32 (TechLITE Pen Needle) potassium chloride 10 mEq 10 meq PO DAILY 01/30/2501/29/25 09:00 History capsule,extended release aspirin 81 mg tablet,delayed 81 mg PO DAILY 30 days #3 0 tabs 01/31/25 Unknown Rx release atorvastatin 40 mg tablet (Lipitor) 40 mg PO DAILY 30 days #30 tabs 01/31/25 Unknown Rx carvedilol 25 mg tablet 12.5 mg (1/2 x 25 mg) PO BID 30 01/31/25 01/30/25 01/29/25 09:00 Rx days #30 tabs cefdinir 300 mg capsule 300 mg PO BID 5 days #10 cap s 01/31/25 Unknown Rx insulin glargine 100 unit/mL (3 10 unit (0.1 mL) SUBCU T BEDTIME 30 01/31/25 01/30/25 01/29/25 09:00 Rx mL) subcutaneous pen (Lant days #0 mL Solostar U-100 Insulin) Allergies Allergy/AdvReac Type Severity Reaction Status Date / Time No Known Allergies Allergy Verified 01/29/25 22:46 Current Medications Generic Name Dose Route Start Last Admin Trade Name Artq PRN Reason Stop Dose Admin Aminophylline 25 mg 02/01/25 06:35 02/01/25 07:28 Aminophylline 25 Mg/Ml Sdv 20 Ml IVP 02/02/25 06:34 25 mg Q2M PRN Administration see dose instructions Aspirin 81 mg 01/30/25 13:45 01/31/25 08:24 Aspirin 81 Mg Ec Tablet PO 81 mg DAILY RENETTA Administration Bupropion HCl 150 mg 01/30/25 21:00 01/31/25 20:36 Bupropion Xl (24 Hr) 150 Mg Tablet PO 150 mg BEDTIME RENETTA Administration Carvedilol 25 mg 01/30/25 23:39 01/31/25 17:00 Carvedilol 25 Mg Tablet PO 25 mg BID RENETTA Administration Ceftriaxone Sodium 2,000 mg 01/30/25 06:30 02/01/25 06:33 Ceftriaxone 2,000 Mg Sdv IVP 2,000 mg Q24H RENETTA Administration Protocol Cyclobenzaprine HCl 10 mg 01/30/25 11:13 01/30/25 22:32 Cyclobenzaprine 10 Mg Tablet PO 10 mg TID PRN Administration SPASMS Donepezil HCl 5 mg 01/31/25 09:00 01/31/25 08:24 Donepezil 5 Mg Tablet PO 5 mg DAILY RENETTA Administration Enoxaparin Sodium 40 mg 01/31/25 21:00 01/31/25 20:37 Enoxaparin 40 Mg/0.4 Ml Syringe SUBCUT 40 mg Q24H RENETTA Administration Hydroxyzine Pamoate 25 mg 01/30/25 11:13 01/31/25 23:35 Hydroxyzine 25 Mg Capsule PO 25 mg TID PRN Administration ITCHING Insulin Glargine 10 unit 01/30/25 21:00 01/31/25 20:38 Insulin Glargine 100 Units/1 Ml SUBCUT 10 unit BEDTIME RENETTA Administration Insulin Human Lispro 0 unit 01/30/25 12:00 01/31/25 20:37 Insulin Lispro 100 Unit/1 Ml SUBCUT 4 unit WM&BEDTIME RENETTA Administration Protocol Levothyroxine Sodium 75 mcg 01/30/25 09:00 01/31/25 08:24 Levothyroxine 75 Mcg Tablet PO 75 mcg DAILY RENETTA Administration Oxybutynin Chloride 10 mg 01/31/25 09:00 01/31/25 08:24 Oxybutynin Chloride Xl 5 Mg Tablet PO 10 mg DAILY RENETTA Administration Pantoprazole Sodium 40 mg 01/31/25 09:00 01/31/25 08:[address] 40 Mg Tablet PO 40 mg DAILY RENETTA Administration Sacubitril/Valsartan 1 each 01/31/25 09:00 01/31/25 17:00 Sacubitril/Valsartan 24-26 Mg Tablet PO 1 each BID RENETTA Administration Sertraline HCl 100 mg 01/30/25 09:00 01/31/25 08:24 Sertraline 100 Mg Tablet PO 100 mg DAILY RENETTA Administration PFSH Acute 2 PFSH: Medical History Encephalopathy Mild cognitive impairment Transient neurological symptoms Transient neurological symptoms Hypokalemia COVID-19 Renal insufficiency Hypothyroidism On anticoagulant therapy Depression Diabetes mellitus Heart disease Myocardial infarction Hypertension Migraine Sleep apnea Thyroid disease Hx of cardiac pacemaker Surgical History Hx of cholecystectomy Hx of hysterectomy Family History Other Diabetes Heart disease Social History Smoking and tobacco/nicotine status: former use of tobacco/nicotine Alcohol intake: never Substance/Drug Use: never Vitals/I&O/Wt Last Vital Signs Temp 97.9 F 02/01/25 04:00 Pulse 70 02/01/25 07:37 Resp 16 02/01/25 04:00 BP 169/79 02/01/25 07:37 Pulse Ox 95 02/01/25 04:00 O2 Del Method Room Air 02/01/25 04:00 01/31/25 02/01/25 02/01/25 22:59 06:59 14:59 Intake Total 480 / 1405.834 Output Total 1200 / 2500 300 / 2500 Balance -720 / -1094.166 -300 / -1094.166 Weight last 48 hrs Weight 202 lb 8 oz Weight 203 lb 4.8 oz Physical Exam 2 Const: COMMON NORMALS: no acute distress and patient oriented x3 GENERAL APPEARANCE: cooperative and comfortable ORIENTATION/CONSCIOUSNESS: Yes awake, Yes oriented to person, Yes oriented to place and Yes oriented to time Chest: COMMONS NORMALS: normal inspection of the chest and normal palpation of entire chest wall CHEST: Yes Symmetrical chest wall rise Resp: COMMON NORMALS: normal respiratory effort, No retractions, No use of accessory muscles and clear to auscultation bilaterally EFFORT & INSPECTION: Yes symmetric chest movement AUSCULTATION: clear to auscultation bilaterally Cardio: COMMON NORMALS: regular rate, regular rhythm, S1 normal heart sound present, S2 normal heart sound present, No gallops present (Cardio), No clicks present (Cardio), No murmurs present (Cardio) and No rub (Cardio) RATE: r egular rate RHYTHM: regular rhythm HEART SOUNDS: S1 normal heart sound present and S2 normal heart sound present PERIPHERAL PULSES: radial pulses present Extremity: COMMON NORMALS: no pedal edema Neuro: COMMON NORMALS: patient oriented x3 and moves all extremities S ENSORIUM/ORIENTATION: Yes oriented to person, Yes oriented to place and Yes oriented to time Data 02/01/25 02:08 02/01/25 02:08 A&P Assessment and plan 1. Systolic CHF with reduced left ventricular function, NYHA class 3: 2. Hx of cardiac pacemaker: 3. Diabetes mellitus: 4. Nonischemic cardiomyopathy: Plan: Stress test performed this morning negative for ischemia, she would like to discharge home. She can follow up with her steel inspector in [place]. She appears euvolemic, no chest pain. Shortness of breath with exertion, chronic, appears stable currently, given her decreased exercise tolerance. Continue home medications. PDMP PDMP Reviewed: Not Reviewed Coding Level of Care Code Acute Code for Chg Fwd Diagnoses Systolic CHF with reduced left ventricular function, NYHA class 3 I50.20 Hx of cardiac pacemaker Z95.0 Diabetes mellitus E11.9 Nonischemic cardiomyopathy I42.8
[2025-02-01] MEDS: oxybutynin chloride XL 5 MG TABLET 10 MG PO (09:35)
--- NOTE | 2025-02-01 09:56 | PC.SOCIAL ---
IMM Update pg 2 of IMM Updated and reviewed w/ patient. Copy provided and copy dated, initialed and placed in chart.
--- NOTE | 2025-02-01 16:05 | NMCV_ITS ---
NM lindsey perf SPECT r/s* [id number] Wendy Dockery Age: 74 Gender: F : 1950 Exam Date: 02/01/2025 06:42 Ordering Phys: Hima Bartlett MD Technologist: ANAMARIA Gómez Exam [facility]: [facility] Indications: cp STRESS TEST Please see separate stress test report in [facility] for full findings IMAGE PROTOCOL Rest/Stress 1 Lexiscan Day Radiopharmaceutical Dose (mCi) Administration Site Administered by Rest: Tc-99m 10.8 IV Laura Andino, STOCK HOLDER Sestamibi Stress:Tc-99m 32.5 IV Laura Connorsgle, STOCK HOLDER Sestamibi Rest: 01-Feb-2025 60 Discovery 630 Stress: 01-Feb-2025 30 Discovery 630 0.4mg Lexiscan. Images obtained in supine and prone position. SPECT RESULTS Technical Quality: Good Raw Data Analysis: Normal Image Corrections: No attenuation or motion correction applied Summed Stress Score: 15 Summed Rest Score: 14 Summed Difference Score: 3 PERFUSION FINDINGS There is large area of mostly fixed perfusion defect in inferolateral wall and lateral more that improves significantly on prone imagi This is likely represents large sized area of attenuation artifact in inferolateral and lateral more. FUNCTIONAL RESULTS (calculated via Gated SPECT) Stress Image LV EF (%): 47 Stress EDV (mL):156 TID: 0.99 Stress ESV (mL):83 FUNCTIONAL FINDINGS: LV systolic function is mildly reduced with EF 47%. IMPRESSIONS 1. Large area of perfusion abnormality consistent with attenuation artifact in inferolateral and lateral more. No significant ischemia seen. Clinical correlation is required. 2. LV systolic function is mildly reduced with EF of 47%. Fred Meek MD (Electronically Signed) Final Date: 01 February 2025 11:57 S
== END 2025-02-01 18:10 | disposition home or self-care (01) | DRG 683 ==
LOC: ER 01-30 01:03 → MEDSURG 01-30 03:01
PROVIDERS: Admitting Provider Internal Medicine; Emergency Provider Emergency Medicine; PCP Nurse Practitioner Family; Visit Provider Family Medicine
DX: N17.9 Acute kidney failure, unspecified (principal); G93.40 Encephalopathy, unspecified; I13.0 Hypertensive heart and chronic kidney disease with heart failure and stage 1 through stage 4 chronic kidney disease, or unspecified chronic kidney disease; I50.22 Chronic systolic (congestive) heart failure; N39.0 Urinary tract infection, site not specified; I42.8 Other cardiomyopathies; E11.22 Type 2 diabetes mellitus with diabetic chronic kidney disease; N18.2 Chronic kidney disease, stage 2 (mild); Z79.4 Long term (current) use of insulin; Z79.84 Long term (current) use of oral hypoglycemic drugs; E03.9 Hypothyroidism, unspecified; D64.9 Anemia, unspecified; E86.0 Dehydration; E87.6 Hypokalemia; G51.0 Bell's palsy; F32.A Depression, unspecified; I48.91 Unspecified atrial fibrillation; Z87.891 Personal history of nicotine dependence; Z95.0 Presence of cardiac pacemaker; I25.2 Old myocardial infarction
CPT/HCPCS: 36415; 36416; 51798; 70450; 71045; 78452; 80053; 80061; 80503; 81001; 82962; 83036; 83735; 84100; 84443; 84484; 85025; 85610; 90471; 90732; 93005; 93306; 93880; 94664; 96360; 96372; 97116; 97161; 97165; 99285; A9500; J0280; J0696; J1644; J1650; J1815; J1938; J2785; J7030; J9999

== ENCOUNTER 2025-05-09 15:33 | Emergency (ER) | payer MEDICARE, SELFPAY ==
--- OUTSIDE RECORDS SUMMARY | 2024-11-12 04:00 | XMS_ITS ---
Author Organization [facility] Address [address] [place] [address] Care Team Providers Care Chemist Proteins Name Role Phone Welch Acacia PARKER Primary Care Provider Unavailab Kemal Abdalla Unavailable [phone] Fay Fermin Unavailable [phone] REASON FOR VISIT 2 month f/u Social History Social History Additional Details Category Social Info Options Details Migrated Social History Migrated Social History Alcoholic beverages? - No, Applying for disability? - No, Currently on disability? - Yes, Drug or substance abuse? - No, Involved in any legal proceedings or lawsuits? - No, Marital Status - , Nonprescription drug use? - No, Participation in detoxification or rehabilitation - No, Smoking - No, Working currently? - No Encounters Encounter Location Date Provider Diagnosis [facility] Inter[facility] Management [address] [address] 11/12/2024 Fay Fermin Chronic pain syndrom e G89.4 ; DDD (degenerative disc disease), cervical M50.30 ; Other intervertebral disc degeneration, thoracic region M51.34 ; Degeneration of intervertebral disc of lumbar region with discogenic back pain M51.360 ; Spondylosis without myelopathy or radiculopathy, lumbosacral region M47.817 ; Unspecified dementia without behavioral disturbance F03.90 ; Scoliosis, unspecified M41.9 ; Other intervertebral disc degeneration, lumbar region M51.36 ; Unspecified abnormalities of gait and mobility R26.9 and rodent exterminator (current) use of opiate analgesic Z79.891 Assessments Encounter Date Diagnosis (ICD Code) Assessment Notes Treatment Notes Treatment Clinical Notes Section Notes 11/12/2024 Chronic pain syndrome (ICD-10 - G89.4) 11/12/2024 DDD (degenerative disc disease), cervical (ICD-10 - M50.30) 11/12/2024 Other intervertebral disc degeneration, thoracic region (ICD-10 - M51.34) 11/12/2024 Degeneration of intervertebral disc of lumbar region with discogenic back pain (ICD-10 - M51.360) 11/12/2024 Spondylosis without myelopathy or radiculopathy, lumbosacral region (ICD-10 - M47.817) 11/12/2024 Unspecified dementia without behavioral disturbance (ICD-10 - F03.90) 11/12/2024 Scoliosis, unspecified (ICD-10 - M41.9) 11/12/2024 Other intervertebral disc degeneration, lumbar region (ICD-10 - M51.36) 11/12/2024 Unspecified abnormalities of gait and mobility (ICD-10 - R26.9) 11/12/2024 residential (current) use of opiate analgesic (ICD-10 - Z79.891) Plan Of Treatment Next Appt Details Provider Name:Fay bueno, 06/03/2025 09:20:00 AM, [address] [place], [address], History and Physical Notes * HPI (History of Present Illness) Category Sub-Category Detail Notes Category Not es Pain Details Pain Location . , neck, hedaches, left ar m, left shoulder Quality . , Aching, throbbin g, tender, [id number] Severity of pain at its worst . , 8/10 Severity of pain at its best . , 5/10 Severity of average pain . , 7/10 Severity of pain right now . , 8/10 Severity of pain on medication . , 8/10 When did you last take your pain medicine . , 09/17/24 - 1PM Medication Details Do you have a lock b ox or safe place for medication away from minors and/or others? Yes , Yes Do you have any leftover pain medication building up at your house? No , No Do you understand that pain medication can be addicting and can cause overdose? Yes , Yes Do you feel you can REDUCE the amount of medication you take today? No , No Opioid Assessment Tools Pill Count . , 1 pill Last Urine Drug Screen . , 05/21/24 Conf irmation , shows consistent with prescribed medication Today's Rapid Urine Drug Screen . , Will be sent for confirmation [place] Prescription Monitoring Program . , [place] FUNERAL HOME ATTENDANT found to be consistent with treatment history, reviewed today COMM (Current Opioid Misuse Measure) Les s than 9 : indicates low risk of abuse behaviors Treatment History Test undergone in the past . , 06/18 XRay Lumbar Past medication you have taken . , Bur[place]on 7.5 #120 Filled 06/20/2024 Treatments you have had . , None IPMA Progress Notes * Wendy DOCKERY DDOB:[birth year] (74 yo F)Acc No.[id number]:11/12/2024 Progress Notes Patient: Wendy Kilgore Provider: ROXY Edwards :1950 A ge:74 Y S ex:Female Date:11/12/2024 Address:[address] Pcp:KEITH More Subjective: * Chief Complaints: * 2 month f/u * HPI: P ain Details: Pain Location . , neck, hedaches, left arm, left shoulder.? Quality . , Aching, throbbing, tender, [id number].? Severity of pain at its worst . , 8/10. Severity of pain at its best . , 5/10. Severity of pain on medication . , 8/10. Severity of average pain . , 7/10. Severity of pain right now . , 8/10. When did you last take your pain medicine . , 09/17/24 - 1PM. M edication Details: Do you have a lock box or safe place for medication away from minors and/or others? Y es , Yes. Do you have any leftover pain medication building up at your house? N o , No. Do you understand that pain medication can be addicting and can cause overdose? Y es , Yes. Do you feel you can REDUCE the amount of medication you take today? N o , No. O pioid Assessment Tools: COMM (Current Opioid Misuse Measure) L ess than 9 : indicates low risk of abuse behaviors. Pill Count . , 1 pill. Last Urine Drug Screen . , 05/21/24 Confirmation , shows consistent with prescribed medication. Today's Rapid Urine Drug Screen . , Will be sent for confirmation. [place] Prescription Monitoring Program . , [place] FUNERAL HOME ATTENDANT found to be consistent with treatment history, reviewed today. T reatment History: Test undergone in the past . , 06/18/23 XRay Lumbar. Past medication you have taken . , Burleson 7.5 #120 Filled 06/20/2024. Treatments you have had . , None IPMA. P hoa Note: The patient presents today for a delayed follow-up. She states she has been very sick the past couple months. She has continued with hydrocodone 7.5/325 4/day which is helping with her pain. Last UDS is consistent. UDS was collected today and will be sent to lab for reference. We will review results with patient at next visit. Pill count is accurate today. PDMP was reviewed and found to be compliant with care. * ROS: G eneral - Multi System: Constitutional D enies, f ever, recent weight gain, recent weight loss, fatigue. R espiratory D enies, wheezing, shortness of breath, cough, snoring. G astrointestinal D enies, nausea, vomiting, constipation, abdominal pain. P sychiatric D enies, , anxiety, depression, panic attacks, suicidal thoughts. * Surgical History: Breast biopsy section cholecystectomy Hysterectomy Pacemaker * Social History: M igrated Social History: M igrated Social History: Alcoholic beverages? - No, A pplying for disability? - No, C urrently on disability? - Yes, D rug or substance abuse? - No, I nvolved in any legal proceedings or lawsuits? - No, M arital Status - , N onprescription drug use? - No, P articipation in detoxification or rehabilitation - No, S moking - No, W orking currently? - No. Assessment: * Assessment: 1. C hronic pain syndrome - G89.4 (Primary) 2 . D DD (degenerative disc disease), cervical - M50.30 3 . O ther intervertebral disc degeneration, thoracic region - M51.34 4 . D egeneration of intervertebral disc of lumbar region with discogenic back pain - M51.360 5 . S pondylosis without myelopathy or radiculopathy, lumbosacral region - M47.817 6 . U nspecified dementia without behavioral disturbance - F03.90 7 . S coliosis, unspecified - M41.9 8 . O ther intervertebral disc degeneration, lumbar region - M51.36 9 . U nspecified abnormalities of gait and mobility - R26.9 1 0. L olvin term (current) use of opiate analgesic - Z79.891 Billing Information: * Procedure Codes: Care Plan Details* * Electronic signature of Marleen Fermin APRN on 05/09/2025 at 03:41 PM DIRECTOR OF SUPPLY CHAIN Sign off status: Pending * Provider: Milly Fermin, LAUNDRY ROOM ATTENDANT-C Date: 0 11/12/2024 Generated for Charles damon/Nida/Nasreen on: 1 07/10/2024 03:41 PM DIRECTOR OF SUPPLY CHAIN
[2025-05-09 15:28] VITALS: BP 146/74; PULSE 73; RESP 22; TEMP 36.8; O2SAT 96; BMI 33.6
--- NOTE | 2025-05-09 15:42 | ECG_ITS ---
[facility] 2025[facility] Pat Name: Wendy Dockery Department: Room: Gender: Female Database Management System Specialist: : 1950 Requested By: Lucía Christina Order Number: [id number] Reading MD: KLAUDIA ANDERS Measurements Intervals [place] Rate: 71 P: -34 UT: 266 QRS: 256 QRSD: 173 T: 67 QT: 444 QTc: 484 Interpretive Statements ELECTRONIC VENTRICULAR PACEMAKER ABNORMAL RHYTHM ECG Compared to ECG 01/31/2025 21:55:37 Atrial-paced complex(es) or rhythm no longer present Electronically Signed On 05-11-2025 12:02:21 CUSTOMER CARE SPECIALIST by KLAUDIA ANDERS [email or web address]
--- NOTE | 2025-05-09 15:42 | XRR_ITS ---
PROCEDURE INFORMATION: Exam: XR Chest Exam date and time: 05/09/2025 3:45 PM Age: 74 years old Clinical indication: Shortness of breath; Prior Surgery; Surgery Date: 6+ months; Surgery Type: PACEMAKER; Additional Info: SOB TECHNIQUE: Imaging protocol: Radiologic exam of the chest. Views: 1 view. COMPARISON: 1. CR XR chest 1V portable [id number] 01/30/2025 1:49 AM 2. CR (CHEST, ) 09/07/2024 5:49 PM FINDINGS: Tubes, catheters and devices: Left-sided cardiac pacemaker is in place with AV sequential and internal defibrillator leads. Right atrial lead is slightly different in position but maybe due to changes in rotation or projection. Lungs: Lungs are well aerated. Pulmonary vascularity is normal. No suspicious pulmonary nodule/s. No focal consolidation is appreciated. Pleural spaces: There is no evidence of pneumothorax. There is no evidence of pleural effusion. There is some stable blunting of the left costophrenic angle which may be related to pleural scarring or fat pad. Heart/Mediastinum: Mild cardiomegaly is noted. Bones/joints: Unremarkable. XR/XR chest 1V portable [id number] IMPRESSION: 1. Cardiomegaly. 2. No acute findings. No change compared with prior study.
--- OUTSIDE RECORDS SUMMARY | 2025-05-09 15:42 | XMS_ITS | Encounter Summary ---
Author Organization [facility], [facility] Address [address] [place] [address] Phone Care Team Providers Care Content Development Specialist Name Role Phone Daphney Ocampo MD Primary Care Provider [phone] Encounter Details Date Type Department Care Team (Late st Contact Info) Description 04/04/2020 [facility] [employer] [address] [place] [address] Carlos Domínguez MD Renal insufficiency Social History Tobacco Use Types [...] insufficiency documented in this encounter Care Teams Content Development Specialist Relationship Specialty Start Date End Date Daphney Ocampo MD [address] [place] [address] PCP - General Family Medicine 01/14/24 documented as of this encounter
--- OUTSIDE RECORDS SUMMARY | 2025-05-09 15:42 | XMS_ITS | Clinical Summary ---
Author Organization [facility] Address [address] [place] [address] Phone Care Team Providers Care Shed Hand Name Role Phone Unavailable Primary Care Provider [...]
--- OUTSIDE RECORDS SUMMARY | 2025-05-09 15:42 | XMS_ITS | Data Portability ---
Author Organization [facility] Address [address] [address] Care Team Providers Care Auto Overhauler Name Role Phone JUANIS HILLIARD Primary Care Provider Assessment No assessment recorded. Plan of Treatment Reminders Order Date Submit Date Provider Last Modified By Organization Details Last Modified Time Details Appointments None recorded. Lab None recorded. Referral None recorded. Procedures None recorded. Surgeries None recorded. Imaging None recorded. Medication Orders benzonatate 100 mg capsule 2024 [facility], [address], [place], [address], 11:54:38 cetirizine 5 mg tablet 2024 025 [facility], [address], [place], [address], 11:54:37 doxycycline hyclate 100 mg capsule 2023 024 [email or web address] [address] [facility], [address] [facility] [address], [place], [place], [id number], 11:32:07 albuterol sulfate HFA 90 mcg/actuati on aerosol inhaler 2023 024 [facility], [address] [facility] [address], [place], [place], [id number], 15:52:09 Patient TargetsNo targets recorded. Patient Instructions Encounter Date Encounter Id Patient Instructions Last Modified By Organization Details Last Modified Time 04/14/2024 [id number] Increase fluids and follow for worsening [email or web address] Not available 04/14/2024 23:44:32 Reason for Referral None Reported. Medical Equipment None Reported. Allergies No known drug allergies Medications Name Sig Start Date Stop Date Status Note LastModified by Organization Details LastModified Time cyclobenzap rine 10 mg tablet take ONE TABLET BY MOUTH TWICE DAILY as needed for SPASMS active Not Available Not Available No t Available bupropion HCl SR 150 mg tablet,12 hr sustained-r elease TAKE TWO TABLETS BY MOUTH AT BEDTIME FOR anxiety AND mood. MAY cause drowsines s active Not Available Not Available No t Available carvedilol 25 mg tablet active Not Available Not Available Not Available potassium chloride ER 10 mEq capsule,ext ended release TAKE TWO CAPSULES BY MOUTH TWICE DAILY FOR THREE DAYS THEN ONE CAPSULE BY MOUTH TWICE DAILY therafter active Not Available Not Available No t Available doxycycline hyclate 100 mg capsule Take 1 capsule twice a day by oral route with meal(s) for 10 days. 08/30 completed Not Available Not Available Not Available donepezil 5 mg tablet take ONE TABLET BY MOUTH AT BEDTIME active Not Available Not Available No t Available cetirizine 5 mg tablet Take 1 tablet every day by oral route at bedtime for 30 days. 2024 active Not Available Not Available Not Avai lable famotidine 40 mg tablet active Not Available Not Available Not Available sertraline 100 mg tablet active Not Available Not Available Not Available levofloxaci n 250 mg tablet TAKE ONE TABLET BY MOUTH DAILY FOR 10 DAYS 08/30 completed Not Available Not Available Not Available spironolact one 25 mg tablet active Not Available Not Available Not Available levothyroxi ne 75 mcg tablet active Not Available Not Available Not Available benzonatate 100 mg capsule Take 1 capsule 3 times a day by oral route as needed, for cough. 2024 active Not Available Not Available Not Avai lable hydrocodone 7.5 mg-acetamin ophen 325 mg tablet TAKE ONE TABLET BY MOUTH EVERY SIX hours. DO not exceed FOUR TABLETS. active Not Available Not Available No t Available oxybutynin chloride ER 5 mg tablet,exte nded release 24 hr take ONE TABLET BY MOUTH DAILY active Not Available Not Available No t Available albuterol sulfate HFA 90 mcg/actuati on aerosol inhaler Inhale 2 puffs 4 times a day by inhalatio n route as needed for 30 days. 2023 active Not Available Not Available Not Avai lable oxybutynin chloride 5 mg tablet take ONE TABLET BY MOUTH DAILY 08/30 completed Not Available Not Available Not Available hydroxyzine pamoate 25 mg capsule TAKE ONE CAPSULE BY MOUTH THREE TIMES DAILY NEEDED FOR ITCHING. 04/14 completed Not Available Not Available Not Available aspirin 08/30 completed Not Available Not Available Not Available levothyroxi ne 08/30 completed Not Available Not Available Not Available Levemir FlexPen 100 unit/mL (3 mL) solution subcutaneou s insulin pen active Not Available Not Available Not Available TechLITE Pen Needle 32 gauge x 32 USE DIRECTED WITH INSULIN PEN active Not Available Not Available No t Available FreeStyle Clark 2 Sensor kit USE directed, CHANGE every 14 DAYS. active Not Available Not Available No t Available FreeStyle Clark 2 [place] USE directed. active Not Available Not Available No t Available Vitals Date Recorded Body height Body mass index (BMI) Body weight Body temperature Heart rate Oxygen saturation Systolic And Diastolic Provider Name and Address Organization Details Last Updated DateTime 5 160.02 cm 33.8 kg/m2 87728.1 4 g 97.8 [degF] 71 /min 95 % 128/70 mm[Hg] [facility] 5 11:36:24 Date Recorded Body weight Body mass index (BMI) Body height Body temperature Heart rate Oxygen saturation Provider Name and Address Organization Details Last Updated DateTime 4 63651.7 7 g 33.1 kg/m2 160.02 cm 97.6 [degF] 70 /min 96 % [facility] 4 14:45:18 Social History None recorded. Functional Status None recorded. Mental Status None recorded. Family History Nothing Reported. Medical History No medical history recorded. Gynecological HistoryNo gynecological history recorded. Obstetrics History GPAL:G 0 P 0 0 0 0 Past Encounters Encounter ID Performer Location Encounter Start Date Encounter Closed Date Diagnosis/Indication Diagnosis SNOMED-CT Code Diagnosis ICD10 Code Diagnosis IMO Codes Diagnosis Note [id number] DEYVI RITCHIE APRN [facility] ([facility]) [address] [place] [address] 04/14/2024 14:38:20 04/14/2024 17:05:05 Acute bronchitis 58902373 J20.9 [id number] KEITH MADRID [facility] ([facility]) [address] [place] [address] 08/30/2024 11:25:22 08/31/2024 10:44:41 Cough 56054380 R05.9 May use otc meds like fluticason e nasal spray as needed for symptoms. Return to clinic with any new or worsening symptoms. Health Concerns Section Related Observation LastModified by Organization Detai ls LastModified Time None Recorded Concern Status LastModified by Organization Details LastModified Time None Recorded Advance Directives Directive None Recorded Payers Insurance Date Sequence Insurance Name Policy Number Policy Parker Covered Member ID Praker Member ID Guarantor Name 04/14/2024 1 *SELF PAY* Patricio Dockery 08/30/2024 1 [facility] (MEDICARE REPLACEMENT/A DVANTAGE - PPO) [id number] Wendy Dockery [id number] Wendy Dockery Notes Date Note Type Note Provider Name and Address Organization Details Recorded Time 04/14/2024 text/html ROS as noted in the HPI walk in ptPt has a cough and runny nose for 3 weeks. DEYVI RITCHIE APRN [address] [place] [address], [phone], [facility] 04/14/2024 23:44:49 08/30/2024 text/html ROS as noted in the HPI walk in ptPt has cough and runny nose for 3 days. Denies any fever or known exposure to illness. Denies any other symptoms. Has not taken any medication for symptoms. States that the cough has been worse at night when laying down. KEITH MADRID [address] [place] [address], [phone], [facility] 08/30/2024 11:54:43 OBGyn Episode No OBEpisode recorded.
--- OUTSIDE RECORDS SUMMARY | 2025-05-09 15:42 | XMS_ITS | Encounter Summary ---
Author Organization [facility] Address [address] [place] [address] Phone Care Team Providers Care Superintendent Local Name Role Phone Daphney Ocampo MD Primary Care Provider Encounter Details Date Type Department Care Team (Late st Contact Info) Description 08/23/2023 Orders Only [facility] [address] [place] [address] Stage 3a chronic kidney disease [...] (HCC) documented in this encounter Care Teams Superintendent Local Relationship Specialty Start Date End Date Daphney Ocampo MD [address] [place] [address] PCP - General Family Medicine 01/14/24 documented as of this encounter
--- OUTSIDE RECORDS SUMMARY | 2025-05-09 15:42 | XMS_ITS | Clinical Summary ---
Author Organization [facility] Address [address] [place] [address] Phone Care Team Providers Care Outpatient Scheduler Name Role Phone Daphney Ocampo MD Primary Care Provider Allergies No [...] Comments Blood Pressure 118/70 07/22/2024 10:40 AM [employer] FIN[employer] PROFESSOR Pulse 73 07/22/2024 10:40 AM [employer] PROFESSOR Temperature 36.6 C (97.8 F) 08/23/2020 12:58 PM CDT Respiratory Rate - - Oxygen Saturation 98% 07/22/2024 10:40 AM [employer] PROFESSOR Inhaled Oxygen Concentration - - Weight 85.9 kg (189 lb 6.4 oz) 07/22/2024 10:40 AM E[employer]IAL FINANCE PROFESSOR Height 160 cm (5' 3 ) 01/14/2024 [...] Insurance [address] [place] [id number] [facility] Medicare Care Teams Outpatient Scheduler Relationship Specialty Start Date End Date Daphney Ocampo MD [address] [id number] PCP - General Family Medicine 01/14/24
--- OUTSIDE RECORDS SUMMARY | 2025-05-09 15:42 | XMS_ITS | Patient Health Record ---
Author Organization [facility] Address [address] [place] [address] Care Team Providers Care Sanitation Technician Name Role Phone Welch Acacia PARKER Primary Care Provider Unavailab Kemal Abadlla Unavailable [phone] Carol Lebron Unavailable [phone] Zander Fay Unavailable [phone] Sukhdev, Henrique Unavailable [phone] Allergies No Known Allergies Results Component Value Reference Range Flag Notes zzzUrine Drug Screen (confir mation by instrument) - [id number] Reviewed date:05/26/2024 01:46:58 PM Interpretation: Performing Lab: Notes/Report: Urine Drug Screen (cup read) - [id number] Reviewed date:02/05/2025 11:04:49 AM Interpretation:Negative Performing Lab: Notes/Report: Negative Urine Drug Screen (cup read) - [id number] Reviewed date:11/23/2024 11:43:55 AM Interpretation: Performing Lab: Notes/Report: OPI Pos Urine Confirmation Panel (in strument) - [id number] Reviewed date:12/09/2024 10:42:46 AM Interpretation: Performing Lab: [...] Chronic pain syndrom e (G89.4) Referral Organization [facility] Referring Provider First Name Kemal Referring Provider Last Name Katlyn Referring Provider Speciality Interventi onal Pain Medicine Referral Priority Routine Reason referral for lumbar and cervical pain Diagnosis 1 Lumbar radiculopathy (M54.16) Diagnosis 2 Cervical radiculopat hy (M54.12) Referral Organization [facility] Referring Provider First Name Fay Referring Provider Last Name Zander Referring Provider Speciality Pain Medic ine Referred Provider [facility] Referred Provider Specialty Preventive M edicine Referral Priority Routine Reason In Home PT - Patient lives in [place] Diagnosis 1 Spondylosis without myelopathy or radiculopathy, lumbosacral region (M47.817) Referral Organization [facility] Referring Provider First Name Fay Referring Provider Last Name Zander Referring Provider Speciality Pain Medic ine Referred Provider Mukesh Ayala Referred Provider Specialty Home Health Referral Priority Routine Medications Medication SIG (Take, Route, Frequency, Duration) Notes Start Date End Date Status Entresto *Pick strength-form from Med[facility] for eRX* Unknown donepezil *Reorder from [facility] for eRx and Interaction Alerts* Unknown HYDROcodone-Acetaminop hen *Pick strength-form from Med[facility] for eRX* Unknown Famotidine *Pick strength-form from [facility] for eRX* Unknown Jardiance *Pick strength-form from [facility] for eRX* Unknown oxyBUTYnin Chloride *Pick strength-form from [facility] for eRX* Unknown Levothyroxine *Reorder from [facility] for eRx and Interaction Alerts* Unknown buPROPion HCl *Pick strength-form from [facility] for eRX* Unknown Spironolactone *Pick strength-form from [facility] for eRX* Unknown HYDROcodone-Acetaminop hen 7.5-325 MG Tablet 1 tablet Orally every 6 hrs; Duration: 30 days As needed Do not exceed 4 per day Fill on 05/07/2025 04/07/2025 06/06/2025 Active Aspirin *Pick strength-form from [facility] for eRX* Unknown Sertraline *Reorder from [facility] for eRx and Interaction Alerts* Unknown cyclobenzaprine *Reorder from [facility] for eRx [...] Status W/U Status Risk Notes Problem Dementia (55413526) Unspecified dementia without behavioral disturbance (F03.90) 11/13/19 Active confirmed Problem Chronic pain syndrome (570287369) Chronic pain syndrome (G89.4) 11/13/19 Active confirmed Problem Scoliosis (951671483) Scoliosis, unspecified (M41.9) 11/13/19 Active confirmed Problem Lumbosacral spondylosis without myelopathy (disorder) (66718161) Spondylosis without myelopathy or radiculopathy, lumbosacral region (M47.817) 11/13/19 24 Active confirmed Problem Degeneration of thoracic intervertebral disc (67127299) Other intervertebral disc degeneration, 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/19 Active confirmed Problem Degeneration of lumbar intervertebral disc (86585181) Other intervertebral disc degeneration, lumbar region (M51.36) 11/13/19 24 Active confirmed Problem Abnormal gait (08082359) Unspecified abnormalities of gait and mobility (R26.9) 11/13/19 Active confirmed Problem High risk drug monitoring status (837693643) senior care (current) use of opiate analgesic (Z79.891) Active confirmed Problem Cervical radiculopathy (50847835) Cervical radiculopathy (M54.12) Active confirmed Problem Lumbar radiculopathy (236108681) Lumbar radiculopathy (M54.16) Active confirmed Problem Cervical disc disorder (090722979) DDD (degenerative disc disease), cervical (M50.30) Active confirmed Problem Degeneration of intervertebral disc of lumbar region with discogenic back pain (M51.360) Active confirmed Vital Signs Height-cm 157.48 cm 04/07/2025 Weight-kg 82.1 kg 04/07/2025 Height 62 in 04/07/2025 Weight 181 lbs 04/07/2025 BMI 33.1 kg/m2 04/07/2025 Encounters Encounter Location Date Provider Diagnosis [address] [address] 09/17/2024 Fay Fermin Chronic pain syndrom e [...] abnormalities of gait and mobility R26.9 and roasterman (current) use of opiate analgesic Z79.891 [facility] [address] [address] 07/15/2024 Kemal Potts Chronic pain syndrom e G89.4 ; DDD (degenerative disc disease), cervical M50.30 ; Other intervertebral disc degeneration, thoracic region M51.34 ; Degeneration of intervertebral disc of lumbar region with discogenic back pain M51.360 ; Spondylosis without myelopathy or radiculopathy, lumbosacral region M47.817 and senior care (current) use of opiate analgesic Z79.[address] [address] 05/21/2024 Henrique Santizo Chronic pain syndrom e G89.4 ; Other intervertebral disc degeneration, thoracic region M51.34 ; Degeneration of intervertebral disc of lumbar region with discogenic back pain M51.360 ; Spondylosis without myelopathy or radiculopathy, lumbosacral region M47.817 ; Scoliosis, unspecified M41.9 ; Unspecified abnormalities of gait and mobility R26.9 and roasterman (current) use of opiate analgesic Z79.891 [facility] [place] [address] [place] [address] 04/07/2025 Kemal Potts Chronic pain syndrom e G89.4 ; DDD (degenerative disc disease), cervical M50.30 ; Other intervertebral disc degeneration, thoracic region M51.34 ; Degeneration of intervertebral disc of lumbar region with discogenic back pain M51.360 ; Spondylosis without myelopathy or radiculopathy, lumbosacral region M47.817 and roasterman (current) use of opiate analgesic Z79.891 [facility] [address] [address] 02/05/2025 Fay Fermin Chronic pain syndrom e G89.4 ; DDD (degenerative disc disease), cervical M50.30 ; Other intervertebral disc degeneration, thoracic region M51.34 ; Degeneration of intervertebral disc of lumbar region with discogenic back pain M51.360 ; Spondylosis without myelopathy or radiculopathy, lumbosacral region M47.817 ; Unspecified dementia without behavioral disturbance F03.90 ; Scoliosis, unspecified M41.9 ; Unspecified abnormalities of gait and mobility R26.9 and senior care (current) use of opiate analgesic Z79.891 [facility] [address] [address] 11/23/2024 Henrique Santizo Chronic pain syndrom e G89.4 ; Other intervertebral disc degeneration, thoracic region M51.34 ; Degeneration of intervertebral disc of lumbar region with discogenic back pain M51.360 ; Spondylosis without myelopathy or radiculopathy, lumbosacral region M47.817 ; Scoliosis, unspecified M41.9 ; Unspecified abnormalities of gait and mobility R26.9 and roasterman (current) use of opiate analgesic Z79.891 [facility] [address] [place] [address] 02/05/2025 Carol green Other intervertebral disc degeneration, thoracic region M51.34 [facility] [place] [address] [place] [address] 11/23/2024 Kemal Potts [facility] [place] [address] [place] [place] [address] 11/18/2024 Kemal Potts [facility] [place] [address] [place] [place] [address] 09/17/2024 Carol green Lumbar radiculopathy M54.16 [facility] [place] [address] [place] [place] [address] 09/15/2024 Fay Fermin [facility] [place] [address] [place] [address] 07/15/2024 Kemal Potts [facility] [address] [place] [address] 05/21/2024 Kemal Potts Assessments Encounter Date Diagnosis (ICD Code) Assessment Notes Treatment Notes Treatment Clinical Notes Section Notes 09/17/2024 Lumbar radiculopathy (ICD-10 - M54.16) 09/17/2024 DDD (degenerative disc disease), cervical (ICD-10 [...] effects are noted. Last UDS and [place] BILLING ASSOCIATE reviewed today. Patient is advised that best long-term goals include increased activity, core strengthening, proper weight management, coping strategies, avoidance of painful triggers, and targeted interventional therapy. We will see the patient for routine follow up in accordance with all clinic policies. We did remind patient today of current guidelines to decrease opioid when possible. We will continue to stress nonopioid treatment. 05/21/2024 Other intervertebral disc degeneration, thoracic region [...] couple of months for a biannual visit. 07/15/2024 Chronic pain syndrome (ICD-10 - G89.4) [...] (degenerative disc disease), cervical (ICD-10 - M50.30) 09/17/2024 Chronic pain syndrome (ICD-10 - G89.4) [...] would just like to go to the [facility] physical therapy. Therefore we will send the [...] effects are noted. Last UDS and [place] BILLING ASSOCIATE reviewed today. Patient is advised that best [...] Fill on 10/17/24 due to Saturday closure 05/21/2024 Chronic pain syndrome (ICD-10 - G89.4) [...] couple of months for a biannual visit. 02/05/2025 Chronic pain syndrome (ICD-10 - G89.4) I had a nice discussion with the patient today regarding her chronic pain complaints. She is here with her family member today and states she was recently in the hospital and just got out on Saturday. She apparently started acting disoriented 1 evening and then was fine the next day and then that Saturday evening she became very disoriented and was just mumbling not making any sense and just staring off. They took her to the hospital and she was there for several days. They state they never could figure out what was going on and stated she may have had a mini stroke. She is doing fine now. She still does not started her physical therapy stating she does not have a car or ride to get there. We will try to get her set up for some in-home physical therapy. She continues with neck, mid back, lower back pain but does feel her medication is helping her when she has it. She denies any other changes since we last seen her any untoward side effects of the medication. I did discuss lifestyle modifications as well as a bowel regimen. She will continue her medication at present level and return to clinic in 2 months to [...] effects are noted. Last UDS and [place] BILLING ASSOCIATE reviewed today. Patient is advised that best long-term goals include increased activity, core strengthening, proper weight management, coping strategies, avoidance of painful triggers, and targeted interventional therapy. We will see the patient for routine follow up in accordance with all clinic policies. We did remind patient today of current guidelines to decrease opioid when possible. We will continue to stress nonopioid treatment. URINE TESTING TODAY; POINT OF SERVICE Urine drug screening will be performed today to monitor compliance with opioid therapy or to serve as a baseline screen for a patient who may be a candidate for opioid therapy in the future, pending UDS results. We will monitor with in-office testing (rapid testing) today and review the results prior to dispensing prescription, as well. Patient has been made aware of this policy. 02/05/2025 DDD (degenerative disc disease), cervical (ICD-10 - M50.30) 04/07/2025 Chronic pain syndrome (ICD-10 - G89.4) I had a nice visit with the patient today regarding her chronic pain issues. She says that the pain continues in the same distribution as prior. She recalls having CT scans of her spine completed. She is going to try and acquire those for us. She continues to find her current medication regimen relatively effective overall. We will continue her medications unchanged. Her UDS and pill counts have been consistent with her treatment regimen. We will follow up in a couple of months to review her imaging and proceed accordingly. 02/05/2025 Other intervertebral disc degeneration, thoracic region (ICD-10 - M51.34) 04/07/2025 DDD (degenerative disc disease), cervical (ICD-10 - M50.30) 02/05/2025 Other intervertebral disc degeneration, thoracic region (ICD-10 - M51.34) 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) 09/17/2024 Other intervertebral disc degeneration, thoracic region (ICD-10 - M51.34) 07/15/2024 Other intervertebral disc degeneration, thoracic region (ICD-10 - M51.34) 05/21/2024 Degeneration of intervertebral disc of lumbar [...] couple of months for a biannual visit. 09/17/2024 Degeneration of intervertebral disc of lumbar [...] couple of months for a biannual visit. 07/15/2024 Degeneration of intervertebral disc of lumbar region with discogenic back pain (ICD-10 - M51.360) 11/23/2024 Degeneration of intervertebral disc of lumbar region with discogenic back pain (ICD-10 - M51.360) 02/05/2025 Degeneration of intervertebral disc of lumbar region with discogenic back pain (ICD-10 - M51.360) 04/07/2025 Other intervertebral disc degeneration, thoracic region (ICD-10 - M51.34) 02/05/2025 Spondylosis without myelopathy or radiculopathy, lumbosacral region (ICD-10 - M47.817) 04/07/2025 Degeneration of intervertebral disc of lumbar region with discogenic back pain (ICD-10 - M51.360) 11/23/2024 Spondylosis without myelopathy or radiculopathy, lumbosacral region (ICD-10 - M47.817) 07/15/2024 Spondylosis without myelopathy or radiculopathy, lumbosacral region (ICD-10 - M47.817) 09/17/2024 Spondylosis without myelopathy or radiculopathy, lumbosacral region (ICD-10 - M47.817) 05/21/2024 Scoliosis, unspecified (ICD-10 - M41.9) I [...] of months for a biannual visit. 11/23/2024 Scoliosis, unspecified (ICD-10 - M41.9) 07/15/2024 roasterman (current) use of opiate analgesic (ICD-10 - Z79.891) 05/21/2024 Unspecified abnormalities of gait and mobility [...] couple of months for a biannual visit. 09/17/2024 Unspecified dementia without behavioral disturbance (ICD-10 - F03.90) 02/05/2025 Unspecified dementia without behavioral disturbance (ICD-10 - F03.90) 04/07/2025 Spondylosis without myelopathy or radiculopathy, lumbosacral region (ICD-10 - M47.817) 04/07/2025 roasterman (current) use of opiate analgesic (ICD-10 - Z79.891) 02/05/2025 Scoliosis, unspecified (ICD-10 - M41.9) 11/23/2024 Unspecified abnormalities of gait and mobility (ICD-10 - R26.9) 09/17/2024 Scoliosis, unspecified (ICD-10 - M41.9) 05/21/2024 roasterman (current) use of opiate analgesic (ICD-10 - [...] couple of months for a biannual visit. 09/17/2024 Other intervertebral disc degeneration, lumbar region (ICD-10 - M51.36) 11/23/2024 senior care (current) use of opiate analgesic (ICD-10 - [...] to abide by our urine testing policy. 02/05/2025 Unspecified abnormalities of gait and mobility (ICD-10 - R26.9) 02/05/2025 senior care (current) use of opiate analgesic (ICD-10 - Z79.891) 09/17/2024 Unspecified abnormalities of gait and mobility (ICD-10 - R26.9) 09/17/2024 senior care (current) use of opiate analgesic (ICD-10 - Z79.891) 07/15/2024 Other Pepe, Wolfgang Van am scribing for Dr. Kemal Potts. I, Dr. Kemal Potts, personally performed the services described in this documentation, as scribed by Wolfgang Van, and it is both accurate and complete. 04/07/2025 Other Pepe, Adrianna Farrell am scribing for Dr. Kemal Potts. I, Dr. Kemal Potts, personally performed the services described in this documentation, as scribed by Adrianna Farrell, and it is both accurate and complete. Plan Of Treatment Next Appt Details Provider Name:Fay Vonnie bueno, 06/03/2025 09:20:00 AM, [address] [place], [address], Insurance Providers Payer Name Payer Address Payer Phone Subscriber Number Group Number Insured Name Patient Relationship to Insured Coverage Start Date Coverage End Date UHC Medicare Dual Complete PPO [address] [address] [place] [address] [id number] Wendy Hyman Self - patient is the insured [employer] (formerly [employer]) [address] [address] [place] [address] [id number] Wendy Hyman Self - patient is the insured [place] Medicare [address] [address] [place] [address] [phone] [id number] Wendy Hyman Self - patient is the insured Medical (General) History Surgical History Surgery Date(Month/Year) Breast biopsy section cholecystectomy Hysterectomy Pacemaker
--- NOTE | 2025-05-09 15:44 | W.ED.SOB ---
HPI - SOB/Dyspnea General: Chief Complaint: Shortness of Breath/Dyspnea Stated Complaint: sob Time Seen by Provider: 05/09/25 15:36 Source: patient and EMS Mode of arrival: EMS Limitations: no limitations History of Present Illness: HPI Narrative: 74-year-old female states she has a history of COPD states she has been having some increasing shortness of breath wheezing over the last 2 to 3 days states she has also had a slight cough. She denies any chest pain denies any fevers. Patient did receive a breathing treatment and route states she feels some proved slightly does not wear oxygen at home is not hypoxic here. Related Data Home Medications ?Medication ?Instructions ?Recorded ?Confirmed bupropion HCl 150 mg 24 hr tablet, 150 mg PO BEDTIME 06/17/19 01/30/25 extended release famotidine 40 mg tablet 40 mg PO DAILY 06/17/19 01/30/25 levothyroxine 75 mcg tablet 75 mcg PO DAILY 06/17/19 01/30/25 sertraline 100 mg tablet 100 mg PO DAILY 06/17/19 01/30/25 cyclobenzaprine 10 mg tablet 10 mg PO TID PRN Spasms 06/18/19 01/30/25 sacubitril 49 mg-valsartan 51 mg 1 tab PO BID 06/18/19 01/30/25 tablet (Entresto) empagliflozin 10 mg tablet 10 mg PO DAILY 03/19/23 01/30/25 (Jardiance) donepezil 5 mg tablet 5 mg PO DAILY 02/17/24 01/30/25 hydrocodone 7.5 mg-acetaminophen 1 tab PO Q6H PRN Pain 02/17/24 01/30/25 325 mg tablet hydroxyzine pamoate 25 mg capsule 25 mg PO TID PRN Itching 02/17/24 01/30/25 oxybutynin chloride 5 mg 10 mg PO DAILY 02/17/24 01/30/25 tablet,extended release 24 hr albuterol sulfate 90 mcg/actuation 1 puff inhalation Q4H PRN sob 08/24/24 01/30/25 aerosol inhaler potassium chloride 10 mEq 10 meq PO DAILY 01/30/25 01/30/25 capsule,extended release Previous Rx's ?Medication ?Instructions ?Recorded pen needle, diabetic 31 gauge x #100 ea 11/24/20 5/16 (BD Ultra-Fine Short Pen Needle) 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 sensor #5 ea 03/19/23 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,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,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 #1 ea 03/05/24 flash glucose sensor (FreeStyle #5 kits 03/24/24 [place] 2 Sensor kit) flash glucose scanning reader #1 ea 08/25/24 (FreeStyle [place] 2 [place]) carvedilol 25 mg tablet 12.5 mg (1/2 x 25 mg) PO BID 30 01/31/25 days #30 tabs insulin glargine 100 unit/mL (3 10 unit (0.1 mL) SUBCUT BEDTIME 30 01/31/25 mL) subcutaneous pen (Lantus days #0 mL Solostar U-100 Insulin) pen needle, diabetic 32 gauge x #100 ea 05/07/25 (TechLITE Pen Needle) prednisone 50 mg tablet 50 mg PO DAILY #5 tabs 05/09/25 Allergies Allergy/AdvReac Type Severity Reaction Status Date / Time No Known Allergies Allergy Verified 01/29/25 22:46 Review of Systems Resp: Reports: dyspnea PFSH ED PFSH: Medical History (Updated 05/09/25 @ 16:55 by Lucía Christina MD) Atrial fibrillation Encephalopathy Mild cognitive impairment Transient neurological symptoms Transient neurological symptoms Hypokalemia COVID-19 Renal insufficiency Hypothyroidism On anticoagulant therapy Depression Diabetes mellitus Heart disease Myocardial infarction Hypertension Migraine Sleep apnea Thyroid disease Hx of cardiac pacemaker Surgical History Hx of cholecystectomy Hx of hysterectomy Family History Other Diabetes Heart disease Social History Smoking and tobacco/nicotine status: former use of tobacco/nicotine Alcohol intake: never Substance/Drug Use: never Physical Exam Const: COMMON NORMALS: patient oriented x3 HENMT: COMMON NORMALS: normocephalic and atraumatic HEAD & SCALP: normocephalic and atraumatic Neck/C-Spine: COMMON NORMALS: full ROM and supple Chest: COMMONS NORMALS: normal inspection of the chest and normal palpation of entire chest wall Resp: COMMON NORMALS: normal respiratory effort, No retractions and No use of accessory muscles AUSCULTATION: wheezes Cardio: COMMON NORMALS: regular rate, regular rhythm and No murmurs present (Cardio) RATE: regular rate RHYTHM: regular rhythm Extremity: COMMON NORMALS: normal to inspection and full ROM Neuro: COMMON NORMALS: patient oriented x3, moves all extremities and no focal motor deficits Psych: COMMON NORMALS: mental status grossly normal, Normal thought process present and cooperative THOUGHT PROCESS: Normal thought process present Skin: COMMON NORMALS: no rashes or lesions noted and no wounds GENERAL SKIN EXAM: no rashes or lesions noted Course Vital Signs: Vital signs: Vital Signs Temperature 98.2 F 05/09/25 15:28 Pulse Rate 75 05/09/25 16:41 Respiratory Rate 20 H 05/09/25 16:33 Blood Pressure 153/78 05/09/25 16:30 Pulse Oximetry 97 05/09/25 16:33 Oxygen Delivery Me thod Room Air 05/09/25 16:33 MDM - SOB/Dyspnea Medical Decision Making 74-year-old female who presents here with shortness of breath differential includes pneumonia, pulm emboli, COPD exacerbation. Patient's x-ray here was interpreted by me showed no signs of pneumonia or acute abnormality blood work showed no significant abnormality. She does feel improved after breathing treatments and IV steroids. Patient has had no hypoxia here she is stable for discharge we will prescribe her prednisone she is follow-up with her PCP and return if worsening I did go over all of her findings with her and she understands agrees to plan. EKG interpreted by me at 1609 paced rhythm heart rate [address] elevation QRS 173 QTc 466 Medical Records I reviewed the patient's medical records. Lab Data I reviewed the patient's lab results. 05/09/25 15:57 05/09/25 15:57 Labs/Radiology: Radiology Impressions Chest X-Ray 05/09/25 15:42 IMPRESSION: 1. Cardiomegaly. 2. No acute findings. No change compared with prior study. Laboratory Results WBC 7.21 10^3/uL (3.29-11.43) 05/09/25 15:57 RBC 4.29 10^6/uL (3.85-5.65) 05/09/25 15:57 Hgb 12.60 g/dL (11.27-16.99) 05/09/25 15:57 Hct 39.6 % (36-47) 05/09/25 15:57 MCV 92.3 fl (85-98) 05/09/25 15:57 MCH 29.4 pg (27-33) 05/09/25 15:57 MCHC 31.8 g/dL (30-55) 05/09/25 15:57 RDW 14.2 % (12.1-15.1) 05/09/25 15:57 Plt Count 80 10^3/cmm (157-399) L 05/09/25 15:57 MPV 10.2 fL (7.4-10.4) 05/09/25 15:57 Neut % (Auto) 77.0 % 05/09/25 15:57 Lymph % (Auto) 12.1 % 05/09/25 15:57 [place] % (Auto) 6.5 % 05/09/25 15:57 Eos % (Auto) 3.7 % 05/09/25 15:57 Baso % (Auto) 0.4 % 05/09/25 15:57 Neut # (Auto) 5.55 10^3/uL (1.8-7.7) 05/09/25 15:57 Lymph # (Auto) 0.9 10^3/uL (0.8-4.8) 05/09/25 15:57 [place] # (Auto) 0.5 10^3/uL (0.2-0.9) 05/09/25 15:57 Eos # (Auto) 0.3 10^3/uL (0.0-0.8) 05/09/25 15:57 Baso # (Auto) 0.0 10^3/uL (0.0-0.1) 05/09/25 15:57 Nucleated RBC % (auto) 0 % 05/09/25 15:57 Nucleated RBCs # 0.0 /100WBC 05/09/25 15:57 Sodium 138 mmol/L (136-145) 05/09/25 15:57 Potassium 4.6 mmol/L (3.5-5.1) 05/09/25 15:57 Chloride 101 mmol/L (98-107) 05/09/25 15:57 Carbon Dioxide 25 mmol/L (22-29) 05/09/25 15:57 Anion Gap 16.6 (5-19) 05/09/25 15:57 BUN 22 mg/dL (8-23) 05/09/25 15:57 Creatinine 1.3 mg/dL (0.5-0.9) H 05/09/25 15:57 GFR Calculation Not Reportable 05/09/25 15:57 Glucose 174 mg/dL (65-115) H 05/09/25 15:57 Calculated Osmolality 294 mOsm/kg (285-295) 05/09/25 15:57 Calcium 9.0 mg/dL (8.5-10.5) 05/09/25 15:57 Total Bilirubin 0.6 mg/dL (0.15-1.2) 05/09/25 15:57 AST 12 U/L (0-32) 05/09/25 15:57 ALT 8 U/L (0-33) 05/09/25 15:57 Alkaline Phosphatase 93 U/L (35-105) 05/09/25 15:57 Total Protein 6.6 g/dL (6.6-8.7) 05/09/25 15:57 Albumin 4.1 g/dL (3.5-5.2) 05/09/25 15:57 Globulin 2.5 g/dL (1.3-4.6) 05/09/25 15:57 Influenza A (PCR) Negative (Negative) 05/09/25 16:02 Influenza Type B (PCR) Negative (Negative) 05/09/25 16:02 RSV (PCR) Negative (Negative) 05/09/25 16:02 SARS-CoV-2 (PCR) Negative (Negative) 05/09/25 16:02 All radiology interpretation(s) finalized by discharge Discharge Plan Discharge Patient Disposition: Home Clinical Impression: Acute exacerbation of chronic obstructive airways disease Condition: Stable Prescriptions: New prednisone 50 mg tablet 50 mg PO DAILY Qty: 5 0RF No Action Jardiance 10 mg tablet 10 mg PO DAILY (DME) 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 sensor Device See Rx Instructions .Route Qty: 5 1RF Rx Instructions: As directed oxybutynin chloride 5 mg tablet extended release 24hr 10 mg PO DAILY hydroxyzine pamoate 25 mg capsule 25 mg PO TID PRN (Reason: Itching) hydrocodone-acetaminophen 7.5-325 mg tablet 1 tab PO Q6H PRN (Reason: Pain) donepezil 5 mg tablet 5 mg PO DAILY albuterol sulfate 90 mcg/actuation HFA aerosol inhaler 1 puff inhalation Q4H PRN (Reason: sob) (DME) pen needle, diabetic [BD Ultra-Fine Short Pen Needle] 31 gauge x 5/16 needle See Rx Instructions .Route Qty: 100 5RF Rx Instructions: As directed (DME) 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 Rx Instructions: USE directed, CHANGE every 14 DAYS. (DME) FreeStyle [place] 2 [place] Misc See Rx Instructions .Route Qty: 1 0RF Rx Instructions: As directed (DME) pen needle, diabetic [TechLITE Pen Needle] 32 gauge x 5/32 needle See Rx Instructions .Route Qty: 100 0RF Rx Instructions: use with insulin famotidine 40 mg Tablet 40 mg PO DAILY sertraline 100 mg Tablet 100 mg PO DAILY levothyroxine 75 mcg Tablet 75 mcg PO DAILY bupropion HCl 150 mg Tablet Extended Release 24 Hr 150 mg PO BEDTIME cyclobenzaprine 10 mg Tablet 10 mg PO TID PRN (Reason: Spasms) sacubitril-valsartan [Entresto] 49-51 mg Tablet 1 tab PO BID potassium chloride 10 mEq capsule, extended release 10 meq PO DAILY carvedilol 25 mg Tablet 12.5 mg PO BID 30 Days Qty: 30 0RF insulin glargine [Lantus Solostar U-100 Insulin] 100 unit/mL (3 mL) insulin pen 10 unit SUBCUT BEDTIME 30 Days Qty: 0 0RF Patient Comments: Pt. is ordered 59u but only takes 50u. Discharge Orders: Discharge ED (Routine); Ordered 05/09/25 Ordered By: Lucía Christina Referrals: Welch,Acacia, [employer] [Primary Care Provider, Nurse Practitioner] - 4-7 days Discharge Diet: Advance as tolerated Discharge Activity: Resume usual activity Patient Instructions: COPD (Chronic Obstructive Pulmonary Disease) (ED) Print Language: Montenegrin Coding Level of Care Code ED Web Site Admin for Oscar Yoon
[2025-05-09] MEDS: methylPREDNISolone sod succ 125 mg/2 mL INJ IV (15:57)
[2025-05-09 16:03] VITALS: BP 149/70; PULSE 72; RESP 18; O2SAT 95
[2025-05-09 16:14] LABS: Hematocrit 39.6 % (36-47); Hemoglobin 12.60 g/dL (11.27-16.99); Mean Corpuscular HGB Conc 31.8 g/dL (30-55); Mean Corpuscular Hemoglobin 29.4 pg (27-33); Mean Corpuscular Volume 92.3 fl (85-98); Nucleated Red Blood Cells % 0 %; Platelet Count 80 10^3/cmm (157-399); Red Blood Count 4.29 10^6/uL (3.85-5.65); White Blood Count 7.21 10^3/uL (3.29-11.43)
[2025-05-09 16:30] VITALS: BP 153/78; PULSE 70; RESP 20; O2SAT 94
[2025-05-09 16:32] LABS: Alanine Aminotransferase 8 U/L (0-33); Albumin Level 4.1 g/dL (3.5-5.2); Alkaline Phosphatase 93 U/L (35-105); Anion Gap 16.6 (5-19); Aspartate Amino Transferase 12 U/L (0-32); Blood Urea Nitrogen 22 mg/dL (8-23); Calcium 9.0 mg/dL (8.5-10.5); Carbon Dioxide 25 mmol/L (22-29); Chloride 101 mmol/L (98-107); Globulin 2.5 g/dL (1.3-4.6); Glucose 174 mg/dL (65-115); Osmolality Calculated 294 mOsm/kg (285-295); Potassium 4.6 mmol/L (3.5-5.1); Sodium 138 mmol/L (136-145); Total Protein 6.6 g/dL (6.6-8.7)
[2025-05-09 16:33] VITALS: PULSE 71; RESP 20; O2SAT 97
[2025-05-09 16:41] VITALS: PULSE 75
[2025-05-09 16:45] LABS: Respiratory Syncytial Virus Ce NEGATIVE (Negative); SARS-CoV-2 PCR NEGATIVE (Negative)
== END 2025-05-09 17:10 | disposition home or self-care (01) ==
PROVIDERS: Emergency Provider Emergency Medicine; PCP Nurse Practitioner Family
DX: J44.1 Chronic obstructive pulmonary disease with (acute) exacerbation (principal); Z79.4 Long term (current) use of insulin; Z11.52 Encounter for screening for COVID-19; Z87.891 Personal history of nicotine dependence; Z95.0 Presence of cardiac pacemaker; E11.9 Type 2 diabetes mellitus without complications; I10 Essential (primary) hypertension
CPT/HCPCS: 36415; 71045; 80053; 85025; 87637; 93005; 94640; 96374; 99285; J2919; J7613; J9999